=== PATIENT | female | born 1965 | race Caucasian/White ===

== ENCOUNTER 2016-08-02 16:20 | Emergency (ER) | payer BC ==
[~2016-08-02] VITALS: Ht 170.2 cm; Wt 88.4 kg
[~2016-08-02 16:20] MED LIST: ATARAX PO; DOXY20TA5 PO; HYDR10TA4 PO; IRON; MULTIVITAMIN PO; ROPI0.5T PO; VITAMIN C; ZOLP-413 PO
[2016-08-02] MEDS ORDERED: ONDANSETRON ODT 4 MG ONE (17:18)
[2016-08-02] MEDS ORDERED: OXYcodone/APAP 5/325MG TABLET ONE (17:18)
[2016-08-02] MEDS ORDERED: IBUPROFEN 200 MG TABLET ONE (17:18)
[2016-08-02] MEDS ORDERED: OXYcodone/APAP 5/325MG TABLET PO ONE (17:30)
[2016-08-02] MEDS ORDERED: IBUPROFEN 200 MG TABLET PO ONE (17:30)
[2016-08-02] MEDS ORDERED: ONDANSETRON ODT 4 MG PO ONE (17:30)
[2016-08-02 18:19] VITALS: BP 85/61
== END 2016-08-02 18:24 | disposition home or self-care (01) ==
LOC: ED 18:17
DX: R07.89 Other chest pain (principal)
CPT/HCPCS: 71101; 99284; Q0162

== ENCOUNTER 2016-09-23 16:38 | Emergency (ER) | payer BC ==
[~2016-09-23] VITALS: Ht 170.2 cm; Wt 85.4 kg
[~2016-09-23 16:38] MED LIST changes: +SPIR50TA2 PO
[2016-09-23 16:46] VITALS: BP 115/69
[2016-09-23] MEDS ORDERED: HYDROcodone/APAP 5/325 TABLET PO ONE (17:00)
[2016-09-23] MEDS ORDERED: IBUPROFEN 200 MG TABLET PO ONE (17:00)
[2016-09-23] MEDS ORDERED: HYDROcodone/APAP 5/325 TABLET ONE (17:12)
[2016-09-23] MEDS ORDERED: IBUPROFEN 200 MG TABLET ONE (17:13)
== END 2016-09-23 18:06 | disposition home or self-care (01) ==
LOC: ED 18:00
DX: S92.514A Nondisplaced fracture of proximal phalanx of right lesser toe(s), initial encounter for closed fracture (principal); S50.11XA Contusion of right forearm, initial encounter; S82.891A Other fracture of right lower leg, initial encounter for closed fracture; K21.9 Gastro-esophageal reflux disease without esophagitis; Z90.49 Acquired absence of other specified parts of digestive tract; W18.30XA Fall on same level, unspecified, initial encounter; Y93.89 Activity, other specified; Y99.8 Other external cause status; Y92.89 Other specified places as the place of occurrence of the external cause
CPT/HCPCS: 99284

== ENCOUNTER 2017-03-23 13:28 | Emergency (ER) | payer BC ==
[~2017-03-23] VITALS: Ht 170.2 cm; Wt 91.7 kg
[2017-03-23 16:03] LABS: HEMATOCRIT 48.3 % (34.6-47.8); HEMOGLOBIN 16.4 g/dL (11.7-16.4); WHITE BLOOD COUNT 6.6 x10^3/uL (3.4-10)
[2017-03-23 16:12] LABS: ASPARTATE AMINO TRANSFERASE 41 U/L (15-37); BLOOD UREA NITROGEN 11 mg/dL (7-18)
[2017-03-23] MEDS ORDERED: HYDROmorphone 1 MG/ML, 1ML ONE (17:15)
[2017-03-23] MEDS ORDERED: ONDANSETRON 2MG/ML, 2ML ONE (17:15)
[2017-03-23] MEDS ORDERED: HYDROmorphone 1 MG/ML, 1ML IVPush PRN (17:30)
[2017-03-23] MEDS ORDERED: ONDANSETRON 2MG/ML, 2ML IVPush ONE (17:30)
[2017-03-23 18:53] VITALS: BP 119/78
== END 2017-03-23 18:56 | disposition home or self-care (01) ==
LOC: ED 18:55
DX: H57.11 Ocular pain, right eye (principal); R51 Headache; H53.149 Visual discomfort, unspecified; K21.9 Gastro-esophageal reflux disease without esophagitis; Z90.49 Acquired absence of other specified parts of digestive tract
CPT/HCPCS: 36415; 70450; 80053; 85025; 85610; 85730; 93005; 96374; 96375; 99285; J1170; J2405

== ENCOUNTER 2017-10-31 06:23 | Emergency (ER) | payer BC ==
[~2017-10-31] VITALS: Ht 170.2 cm; Wt 90.0 kg
[2017-10-31] MEDS ORDERED: SODIUM CHLORIDE 0.9% 1,000ML IVBOLUS ONE (07:00)
[2017-10-31] MEDS ORDERED: SODIUM CHLORIDE FLUSH 10ML SYR IVF ONE (07:00)
[2017-10-31] MEDS ORDERED: ONDANSETRON 2MG/ML, 2ML IVPush ONE (07:00)
[2017-10-31] MEDS ORDERED: ONDANSETRON 2MG/ML, 2ML ONE (07:22)
[2017-10-31] MEDS ORDERED: MORPHINE SULFATE 4 MG/ML, 1ML ONE ×2 (07:23→08:28)
[2017-10-31 07:30] LABS: MEAN CORPUSCULAR HEMOGLOBIN 30.5 pg (27.0-34.8); MEAN CORPUSCULAR HGB CONC 34.3 g/dL (32.4-35.8); MEAN CORPUSCULAR VOLUME 89.1 fL (80-100); MEAN PLATELET VOLUME 7.8 fL (7.4-10.4); PLATELET COUNT 416 x10^3/uL (130-400); RED BLOOD COUNT 5.26 x10^6/uL (3.82-5.3); RED CELL DISTRIBUTION WIDTH 13.9 % (9.6-15.2)
[2017-10-31] MEDS: MORPHINE SULFATE 4 MG/ML, 1ML IVPush PRN ×2 (07:30→08:33)
[2017-10-31] MEDS ORDERED: DIPHENHYDRAMINE 50 MG/ML, 1ML ONE ×2 (07:38→09:16)
[2017-10-31 07:39] LABS: ALANINE AMINOTRANSFERASE 58 U/L (12-78); ANION GAP 11 mmol/L (5-15); CALCIUM 9.3 mg/dL (8.5-10.1); CHLORIDE 94 mmol/L (98-107); CREATININE 1.31 mg/dL (0.55-1.02)
[2017-10-31 07:41] LABS: ALKALINE PHOSPHATASE 153 U/L (45-117); BILIRUBIN,TOTAL 1.1 mg/dL (0.2-1.0); TOTAL PROTEIN 8.2 g/dL (6.4-8.2)
[2017-10-31 07:55] LABS: INTERNATIONAL NORMALIZED RATIO 0.96 (0.93-1.1)
[2017-10-31] MEDS ORDERED: DIPHENHYDRAMINE 50 MG/ML, 1ML IVPush ONE ×2 (08:00→09:30)
[2017-10-31 08:01] LABS: MD YES
[2017-10-31 08:03] LABS: BAND#(MANUAL) 0.15 x10^3/uL; BANDS%(MANUAL) 2 % (0-7); EOS#(MANUAL) 0.15 x10^3/uL (0.0-0.4); EOS% (MANUAL) 2 % (1-7); LYMPHS% (MANUAL) 25 % (22-44); MONOS#(MANUAL) 0.61 x10^3/uL (0.3-2.7); MONOS% (MANUAL) 8 % (2-9); SEG#(MANUAL) 4.79 x10^3/uL (1.8-6.8); SEGS% (MANUAL) 63 % (42-75)
[2017-10-31 08:04] LABS: <PLATELET ESTIMATE> INCREASED; <PLT MORPHOLOGY> NORMAL PLT MORPH; <RBC MORPHOLOGY> NORMAL
[2017-10-31 08:19] LABS: CLOSTRIDIUM DIFFICILE ANTIGEN NEGATIVE; CLOSTRIDIUM DIFFICILE TOXIN NEGATIVE (Negative)
[2017-10-31] MEDS ORDERED: METOCLOPRAMIDE 5 MG/ML, 2ML ONE (09:16)
[2017-10-31 09:22] VITALS: BP 103/56
[2017-10-31] MEDS ORDERED: METOCLOPRAMIDE 5 MG/ML, 2ML IVPush ONE (09:30)
[2017-10-31] MEDS ORDERED: OMNIPAQUE 350 MG/ML, 100ML BOTTLE ONE (10:22)
== END 2017-10-31 11:08 | disposition home or self-care (01) ==
LOC: ED 08:56
DX: R10.84 Generalized abdominal pain (principal); K21.9 Gastro-esophageal reflux disease without esophagitis; E87.6 Hypokalemia; Z90.49 Acquired absence of other specified parts of digestive tract
CPT/HCPCS: 36415; 74022; 74177; 80053; 83690; 85025; 85610; 85730; 87324; 93005; 96361; 96374; 96375; 96376; 99285; J1200; J2405; J2765; J7030; Q9967

== ENCOUNTER 2018-01-23 18:48 | Emergency (ER) | payer BC ==
[~2018-01-23] VITALS: Ht 170.2 cm; Wt 92.1 kg
[~2018-01-23 18:48] MED LIST changes: -SPIR50TA2 PO; +SPIR50TA4 PO
[2018-01-23 19:34] LABS: BASOPHILS # (AUTO) 0.04 x10^3/uL (0-0.1); BASOPHILS % (AUTO) 1 % (0-1); EOSINOPHILS # (AUTO) 0.15 x10^3/uL (0-0.4); EOSINOPHILS % (AUTO) 2 % (1-7); LYMPHOCYTES # (AUTO) 2.02 x10^3/uL (1-3.4); LYMPHOCYTES % (AUTO) 27 % (22-44); MD NO; MEAN CORPUSCULAR HEMOGLOBIN 31.6 pg (27.0-34.8); MEAN CORPUSCULAR HGB CONC 34.4 g/dL (32.4-35.8); MEAN CORPUSCULAR VOLUME 91.9 fL (80-100); MEAN PLATELET VOLUME 7.3 fL (7.4-10.4); MONOCYTES # (AUTO) 0.28 x10^3/uL (0.2-0.8); MONOCYTES % (AUTO) 4 % (2-9); NEUTROPHILS # (AUTO) 4.97 x10^3/uL (1.8-6.8); NEUTROPHILS % (AUTO) 67 % (42-75); PLATELET COUNT 368 x10^3/uL (130-400); RED BLOOD COUNT 4.77 x10^6/uL (3.82-5.3); RED CELL DISTRIBUTION WIDTH 13.3 % (9.6-15.2)
[2018-01-23 19:42] LABS: ALANINE AMINOTRANSFERASE 57 U/L (12-78); ALBUMIN 3.9 g/dL (3.4-5.0); ANION GAP 11 mmol/L (5-15); CALCIUM 9.2 mg/dL (8.5-10.1); CHLORIDE 102 mmol/L (98-107); CREATININE 1.02 mg/dL (0.55-1.02)
[2018-01-23 19:44] LABS: ALKALINE PHOSPHATASE 175 U/L (45-117); BILIRUBIN,TOTAL 1.2 mg/dL (0.2-1.0); TOTAL PROTEIN 8.3 g/dL (6.4-8.2)
[2018-01-23 19:45] LABS: CULTURE INDICATED? YES; MICROSCOPIC INDICATED
[2018-01-23] MEDS ORDERED: METOCLOPRAMIDE 5 MG/ML, 2ML IVPush ONE (20:00)
[2018-01-23] MEDS ORDERED: POTASSIUM CHLORIDE 20 MEQ in SODIUM CHLORIDE 0.9% 250 ML IV ONE (20:00)
[2018-01-23] MEDS ORDERED: KETOROLAC 30 MG/1 ML IVPush ONE (20:00)
[2018-01-23] MEDS ORDERED: KETOROLAC 30 MG/1 ML ONE (20:06)
[2018-01-23] MEDS ORDERED: METOCLOPRAMIDE 5 MG/ML, 2ML ONE (20:06)
[2018-01-23] MEDS ORDERED: MORPHINE SULFATE 4 MG/ML, 1ML ONE (22:10)
[2018-01-23] MEDS ORDERED: DIPHENHYDRAMINE 50 MG/ML, 1ML ONE (22:16)
[2018-01-23] MEDS ORDERED: DIPHENHYDRAMINE 50 MG/ML, 1ML IVPush ONE (22:30)
[2018-01-23] MEDS ORDERED: MORPHINE SULFATE 4 MG/ML, 1ML IVPush ONE (22:30)
[2018-01-23 23:16] VITALS: BP 121/71
== END 2018-01-23 23:19 | disposition home or self-care (01) ==
LOC: ED 19:55
DX: N30.00 Acute cystitis without hematuria (principal); E87.6 Hypokalemia; G44.219 Episodic tension-type headache, not intractable; K21.9 Gastro-esophageal reflux disease without esophagitis; Z90.89 Acquired absence of other organs; Z90.49 Acquired absence of other specified parts of digestive tract; Z88.2 Allergy status to sulfonamides; Z91.041 Radiographic dye allergy status; Z93.2 Ileostomy status
CPT/HCPCS: 36415; 80053; 81001; 83690; 85025; 87086; 96365; 96375; 99284; J1200; J1885; J2765; J3480; J7050

== ENCOUNTER 2018-07-23 19:33 | Emergency (ER) | payer BC, MEDICAID ==
[~2018-07-23] VITALS: Ht 170.2 cm; Wt 96.0 kg
[2018-07-23] MEDS ORDERED: HYDROcodone/APAP 5/325 TABLET ONE (20:19)
[2018-07-23] MEDS ORDERED: PROMETHAZINE 25 MG/ML, 1ML ONE (20:19)
[2018-07-23] MEDS ORDERED: IBUPROFEN 600 MG TABLET ONE (20:19)
[2018-07-23] MEDS ORDERED: HYDROcodone/APAP 5/325 TABLET PO ONE (20:30)
[2018-07-23] MEDS ORDERED: IBUPROFEN 600 MG TABLET PO ONE (20:30)
[2018-07-23] MEDS ORDERED: PROMETHAZINE 25 MG/ML, 1ML IM ONE (20:30)
[2018-07-23 20:32] LABS: BASOPHILS # (AUTO) 0.05 x10^3/uL (0-0.1); BASOPHILS % (AUTO) 1 % (0-1); EOSINOPHILS # (AUTO) 0.15 x10^3/uL (0-0.4); EOSINOPHILS % (AUTO) 2 % (1-7); LYMPHOCYTES % (AUTO) 26 % (22-44); MD NO; MEAN CORPUSCULAR HEMOGLOBIN 32.5 pg (27.0-34.8); MEAN CORPUSCULAR HGB CONC 34.3 g/dL (32.4-35.8); MEAN CORPUSCULAR VOLUME 94.7 fL (80-100); MEAN PLATELET VOLUME 7.4 fL (7.4-10.4); MONOCYTES # (AUTO) 0.31 x10^3/uL (0.2-0.8); MONOCYTES % (AUTO) 5 % (2-9); NEUTROPHILS # (AUTO) 4.07 x10^3/uL (1.8-6.8); NEUTROPHILS % (AUTO) 66 % (42-75); PLATELET COUNT 265 x10^3/uL (130-400); RED BLOOD COUNT 4.48 x10^6/uL (3.82-5.3); RED CELL DISTRIBUTION WIDTH 14.3 % (9.6-15.2)
[2018-07-23 20:42] LABS: ALANINE AMINOTRANSFERASE 56 U/L (12-78); ALBUMIN 3.5 g/dL (3.4-5.0); ANION GAP 5 mmol/L (5-15); CALCIUM 8.8 mg/dL (8.5-10.1); CHLORIDE 108 mmol/L (98-107); CREATININE 1.09 mg/dL (0.55-1.02); T4 (THYROXINE) 7.9 mcg/dL (4.8-13.9)
[2018-07-23 20:47] LABS: ALKALINE PHOSPHATASE 172 U/L (45-117); BILIRUBIN,TOTAL 0.8 mg/dL (0.2-1.0); TOTAL PROTEIN 7.2 g/dL (6.4-8.2); TROPONIN I < 0.015 ng/mL (0.000-0.045)
[2018-07-23 20:56] LABS: CULTURE INDICATED? YES; MICROSCOPIC INDICATED
--- NOTE | 2018-07-23 21:07 | NUR ---
THIS IS A 53 YO FEMALE WHO PRESENTS TO THE ER C/O RLQ ABD PAIN AND "MORE LIQUIDY THAN NORMAL" OUTPUT FROM HER OSTOMY BAG. PT ALSO REPORTS MUSCLES CRAMPS AND PAINFUL URINATION. URINE CLOUDY AND YELLOW. SAMPLE OBTAINED AND SENT TO LAB. PT MEDICATED ORDERED FOR PAIN/NAUSEA. FAMILY AT BEDSIDE. PT AND FAMILY AWARE WE ARE WAITING FOR LAB/IMAGING RESULTS. PT DENIES OTHER NEEDS AT THIS TIME. CALL LIGHT WITHIN REACH. WILL CONT TO MONITOR PT.
[2018-07-23 21:35] VITALS: BP 125/76
== END 2018-07-23 21:37 | disposition home or self-care (01) ==
LOC: ED 21:34
DX: N30.00 Acute cystitis without hematuria (principal); M79.18 Myalgia, other site; K21.9 Gastro-esophageal reflux disease without esophagitis; Z87.01 Personal history of pneumonia (recurrent); Z90.49 Acquired absence of other specified parts of digestive tract; Z90.89 Acquired absence of other organs
CPT/HCPCS: 36415; 74022; 80053; 81001; 83690; 83735; 84436; 84443; 84484; 85025; 87086; 93005; 96372; 99284; J2550

== ENCOUNTER 2018-07-31 10:22 | Day surgery (SDC) | payer MEDICAID ==
[2018-07-28 12:32] LABS: ALANINE AMINOTRANSFERASE 85 U/L (12-78); ALBUMIN 4.2 g/dL (3.4-5.0); ANION GAP 8 mmol/L (5-15); CALCIUM 9.4 mg/dL (8.5-10.1); CHLORIDE 103 mmol/L (98-107); CREATININE 1.25 mg/dL (0.55-1.02)
[2018-07-28 12:34] LABS: ALKALINE PHOSPHATASE 185 U/L (45-117); BILIRUBIN,TOTAL 1.4 mg/dL (0.2-1.0); TOTAL PROTEIN 8.2 g/dL (6.4-8.2)
[2018-07-28 12:43] LABS: BASOPHILS # (AUTO) 0.02 x10^3/uL (0-0.1); BASOPHILS % (AUTO) 0 % (0-1); EOSINOPHILS # (AUTO) 0.17 x10^3/uL (0-0.4); EOSINOPHILS % (AUTO) 2 % (1-7); LYMPHOCYTES # (AUTO) 2.08 x10^3/uL (1-3.4); LYMPHOCYTES % (AUTO) 29 % (22-44); MD NO; MEAN CORPUSCULAR HEMOGLOBIN 32.5 pg (27.0-34.8); MEAN CORPUSCULAR HGB CONC 34.3 g/dL (32.4-35.8); MEAN CORPUSCULAR VOLUME 94.7 fL (80-100); MEAN PLATELET VOLUME 7.7 fL (7.4-10.4); MONOCYTES # (AUTO) 0.39 x10^3/uL (0.2-0.8); MONOCYTES % (AUTO) 5 % (2-9); NEUTROPHILS # (AUTO) 4.64 x10^3/uL (1.8-6.8); NEUTROPHILS % (AUTO) 64 % (42-75); PLATELET COUNT 344 x10^3/uL (130-400); RED BLOOD COUNT 4.96 x10^6/uL (3.82-5.3)
[2018-07-28 12:44] LABS: INTERNATIONAL NORMALIZED RATIO 0.93 (0.93-1.1); PROTHROMBIN TIME 9.8 Seconds (9.6-11.5)
[~2018-07-31] VITALS: Ht 170.2 cm; Wt 94.6 kg
[2018-07-31] MEDS ORDERED: LACTATED RINGERS 1,000 ML IV SCH (10:50)
[2018-07-31 10:55] VITALS: BP 99/70
[2018-07-31] MEDS ORDERED: MIDAZOLAM 1 MG/ML, 2ML ONE ×2 (12:52→13:02)
[2018-07-31] MEDS ORDERED: FENTANYL PF 100 MCG/2ML ONE ×2 (13:23→13:29)
[2018-07-31] MEDS ORDERED: DEXAMETHASONE 4 MG/ML, 1ML ONE (13:23)
[2018-07-31] MEDS ORDERED: ONDANSETRON 2MG/ML, 2ML ONE (13:23)
[2018-07-31] MEDS ORDERED: OXYcodone 5 MG/5 ML ORAL.SOL UDC ONE (13:48)
[2018-07-31] MEDS ORDERED: HYDROmorphone 2 MG/ML, 1ML ONE (13:48)
[2018-07-31] MEDS ORDERED: ACETAMINOPHEN 650 MG/20.3 ML UDC ONE (13:48)
[2018-07-31] MEDS: HYDROmorphone 2 MG/ML, 1ML IVPush PRN ×4 (13:53→14:16)
[2018-07-31] MEDS ORDERED: KETOROLAC 30 MG/1 ML IM PRN ×2 (14:00)
[2018-07-31] MEDS ORDERED: HYDROcodone/APAP 7.5-325MG/15ML UDC PO PRN (14:00)
[2018-07-31] MEDS ORDERED: FENTANYL PF 100 MCG/2ML IV PRN (14:00)
[2018-07-31] MEDS ORDERED: MORPHINE SULFATE 4 MG/ML, 1ML IVPush PRN (14:00)
[2018-07-31] MEDS ORDERED: ACETAMINOPHEN 325 MG TABLET PO PRN (14:00)
[2018-07-31] MEDS ORDERED: OXYcodone 5 MG/5 ML ORAL.SOL UDC PO PRN (14:00)
[2018-07-31] MEDS ORDERED: KETOROLAC 30 MG/1 ML IV PRN ×2 (14:00)
[2018-07-31] MEDS ORDERED: MEPERIDINE/PF 25MG/0.5ML IVPush PRN (14:00)
== END 2018-07-31 17:00 | disposition home or self-care (01) ==
LOC: OUT 10:22
PROVIDERS: ATTEND Specialist
DX: N72 Inflammatory disease of cervix uteri (principal); D64.9 Anemia, unspecified; Z90.49 Acquired absence of other specified parts of digestive tract; Z87.440 Personal history of urinary (tract) infections; Z98.890 Other specified postprocedural states; Z88.8 Allergy status to other drugs, medicaments and biological substances; Z79.01 Long term (current) use of anticoagulants
CPT/HCPCS: 36415; 58120; 80053; 85025; 85610; 85730; 88305; J1100; J1170; J1885; J2250; J2405; J3010; J7120

== ENCOUNTER → 2018-09-26 | Outpatient (CLI) | payer MEDICAID | END | disposition home or self-care (01) | LOC: WOUND 10:51 | PROVIDERS: ATTEND Internal Medicine Cardiovascular Disease | DX: Z93.3 Colostomy status (principal); K21.9 Gastro-esophageal reflux disease without esophagitis; Z79.01 Long term (current) use of anticoagulants; Z90.49 Acquired absence of other specified parts of digestive tract; Z88.8 Allergy status to other drugs, medicaments and biological substances | CPT/HCPCS: 99203 ==

== ENCOUNTER → 2018-10-02 | Outpatient (CLI) | payer MEDICAID | END | disposition home or self-care (01) | LOC: WOUND 11:17 | PROVIDERS: ATTEND Internal Medicine Cardiovascular Disease | DX: Z93.2 Ileostomy status (principal); K21.9 Gastro-esophageal reflux disease without esophagitis; Z79.01 Long term (current) use of anticoagulants; Z90.49 Acquired absence of other specified parts of digestive tract; Z88.8 Allergy status to other drugs, medicaments and biological substances | CPT/HCPCS: 99212 ==

== ENCOUNTER → 2018-10-25 | Outpatient (CLI) | payer MEDICAID | END | disposition home or self-care (01) | LOC: WOUND 08:05 | PROVIDERS: ATTEND Internal Medicine | DX: Z93.2 Ileostomy status (principal); K21.9 Gastro-esophageal reflux disease without esophagitis; Z79.01 Long term (current) use of anticoagulants; Z90.49 Acquired absence of other specified parts of digestive tract; Z88.8 Allergy status to other drugs, medicaments and biological substances | CPT/HCPCS: 99212 ==

== ENCOUNTER 2018-11-10 13:50 | Outpatient (CLI) | payer MEDICAID | END 2018-11-10 23:59 | disposition home or self-care (01) | LOC: WOUND 13:50 | PROVIDERS: ATTEND Family Medicine | DX: Z93.2 Ileostomy status (principal); Z79.01 Long term (current) use of anticoagulants; Z90.49 Acquired absence of other specified parts of digestive tract; Z88.8 Allergy status to other drugs, medicaments and biological substances | CPT/HCPCS: 99212 ==

== ENCOUNTER 2018-11-10 19:32 | Inpatient (IN) | payer MEDICAID ==
[~2018-11-10] VITALS: Ht 170.2 cm; Wt 105.6 kg
[2018-11-15 08:20] VITALS: BP 104/70
== END 2018-11-15 09:40 | disposition home or self-care (01) | DRG 392 ==
LOC: ED 21:53 → EDIP 22:10 → 3NW 23:22 → DCLOUNGE 11-15 09:38
PROVIDERS: ADMIT Internal Medicine; ATTEND Internal Medicine
DX: R10.9 Unspecified abdominal pain (principal); E66.9 Obesity, unspecified; Z68.36 Body mass index [BMI] 36.0-36.9, adult; Z91.048 Other nonmedicinal substance allergy status; E86.0 Dehydration; E87.6 Hypokalemia; Z82.49 Family history of ischemic heart disease and other diseases of the circulatory system; Z93.2 Ileostomy status; Z82.3 Family history of stroke; K21.9 Gastro-esophageal reflux disease without esophagitis; Z88.3 Allergy status to other anti-infective agents; K66.0 Peritoneal adhesions (postprocedural) (postinfection); Z88.2 Allergy status to sulfonamides; Z82.5 Family history of asthma and other chronic lower respiratory diseases
CPT/HCPCS: 36415; 74018; 74177; 74250; 80053; 81003; 85025; 96374; 96375; 99285; G0378; J1170; J1644; J2405; J3480; Q9967; J1200; J2270; J7030

== ENCOUNTER 2018-11-17 10:39 | Outpatient (CLI) | payer MEDICAID ==
[~2018-11-17 10:39] MED LIST changes: +ROPI2TAB4 PO
[2018-11-21] MEDS ORDERED: OMEP-110 PO (09:40)
[2018-11-21] MEDS ORDERED: DIPH1TAB PO (09:40)
[2018-11-21] MEDS ORDERED: ACID1TAB7 PO ×2 (09:40)
[2018-11-21] MEDS ORDERED: ACET325T26 PO (09:40)
[2018-11-21] MEDS ORDERED: DIPH25CA61 PO (09:40)
[2018-11-21] MEDS ORDERED: LOPE2CAP PO (11:30)
[2018-11-21] MEDS ORDERED: [UNRECOGNIZED DRUG - CODE] TP (11:47)
[2018-12-24] MEDS ORDERED: LEVO750T26 PO ×2 (14:26)
[2019-02-12] MEDS ORDERED: ACID1TAB7 PO (11:18)
[2019-02-12] MEDS ORDERED: FLUC200T PO (11:18)
[2019-02-12] MEDS ORDERED: CIPR750T PO (11:18)
== END 2018-11-17 23:59 | disposition home or self-care (01) ==
LOC: WOUND 10:39
PROVIDERS: ATTEND Family Medicine
DX: Z93.2 Ileostomy status (principal); G89.4 Chronic pain syndrome; E66.9 Obesity, unspecified; K21.9 Gastro-esophageal reflux disease without esophagitis; Z88.2 Allergy status to sulfonamides; Z68.36 Body mass index [BMI] 36.0-36.9, adult; Z79.01 Long term (current) use of anticoagulants; Z90.49 Acquired absence of other specified parts of digestive tract; Z88.8 Allergy status to other drugs, medicaments and biological substances; Z88.3 Allergy status to other anti-infective agents
CPT/HCPCS: 99213

== ENCOUNTER 2018-11-19 13:44 | Observation (INO) | payer MEDICAID ==
[~2018-11-19] VITALS: Ht 170.2 cm; Wt 105.2 kg
[2018-11-21 08:30] VITALS: BP 100/54
== END 2018-11-21 13:22 | disposition home or self-care (01) ==
LOC: ED 14:35 → EDIP 16:33 → INTOOBSV 16:33 → 4NOR 17:35 → DCLOUNGE 11-21 13:12
PROVIDERS: ADMIT Internal Medicine; ATTEND Internal Medicine
DX: R10.30 Lower abdominal pain, unspecified (principal); K94.12 Enterostomy infection; K63.3 Ulcer of intestine; I10 Essential (primary) hypertension; K94.19 Other complications of enterostomy; K66.0 Peritoneal adhesions (postprocedural) (postinfection); E66.9 Obesity, unspecified; E87.6 Hypokalemia; F41.9 Anxiety disorder, unspecified; G47.00 Insomnia, unspecified; I95.9 Hypotension, unspecified; Z68.36 Body mass index [BMI] 36.0-36.9, adult; Z90.49 Acquired absence of other specified parts of digestive tract; Z88.2 Allergy status to sulfonamides; Z91.041 Radiographic dye allergy status; Z88.8 Allergy status to other drugs, medicaments and biological substances; Z79.899 Other long term (current) drug therapy; Z88.1 Allergy status to other antibiotic agents
CPT/HCPCS: 36415; 74022; 80048; 80053; 85025; 85610; 96361; 96372; 96374; 96375; 96376; 99285; G0378; J1644; J1885; J2270; J2405; J7030; Q0163; Q0177

== ENCOUNTER 2018-11-24 10:20 | Outpatient (CLI) | payer MEDICAID | END 2018-11-24 23:59 | disposition home or self-care (01) | LOC: WOUND 10:20 | PROVIDERS: ATTEND Family Medicine | DX: Z93.2 Ileostomy status (principal); G89.4 Chronic pain syndrome; E66.9 Obesity, unspecified; K21.9 Gastro-esophageal reflux disease without esophagitis; Z88.2 Allergy status to sulfonamides; Z68.36 Body mass index [BMI] 36.0-36.9, adult; Z79.1 Long term (current) use of non-steroidal anti-inflammatories (NSAID); Z90.49 Acquired absence of other specified parts of digestive tract; Z88.8 Allergy status to other drugs, medicaments and biological substances; Z88.3 Allergy status to other anti-infective agents | CPT/HCPCS: 99213 ==

== ENCOUNTER 2018-11-29 10:08 | Outpatient (CLI) | payer MEDICAID | END 2018-11-29 23:59 | disposition home or self-care (01) | LOC: WOUND 10:08 | PROVIDERS: ATTEND Internal Medicine | DX: Z93.2 Ileostomy status (principal); G89.4 Chronic pain syndrome; E66.9 Obesity, unspecified; K21.9 Gastro-esophageal reflux disease without esophagitis; Z88.2 Allergy status to sulfonamides; Z68.36 Body mass index [BMI] 36.0-36.9, adult; Z79.1 Long term (current) use of non-steroidal anti-inflammatories (NSAID); Z90.49 Acquired absence of other specified parts of digestive tract; Z88.8 Allergy status to other drugs, medicaments and biological substances; Z88.3 Allergy status to other anti-infective agents | CPT/HCPCS: 99213 ==

== ENCOUNTER 2018-12-06 13:00 | Outpatient (CLI) | payer MEDICAID | END 2018-12-06 23:59 | disposition home or self-care (01) | LOC: WOUND 13:00 | PROVIDERS: ATTEND Internal Medicine | DX: Z93.2 Ileostomy status (principal); G89.4 Chronic pain syndrome; E66.9 Obesity, unspecified; K21.9 Gastro-esophageal reflux disease without esophagitis; Z88.2 Allergy status to sulfonamides; Z68.36 Body mass index [BMI] 36.0-36.9, adult; Z79.1 Long term (current) use of non-steroidal anti-inflammatories (NSAID); Z90.49 Acquired absence of other specified parts of digestive tract; Z88.8 Allergy status to other drugs, medicaments and biological substances; Z88.3 Allergy status to other anti-infective agents | CPT/HCPCS: 99213 ==

== ENCOUNTER 2018-12-21 20:25 | Emergency (ER) | payer MEDICAID ==
[~2018-12-21] VITALS: Ht 170.2 cm; Wt 102.1 kg
[~2018-12-21 20:25] MED LIST changes: +ACET325T26 PO; +ACID1TAB7 PO; +DIPH1TAB PO; +DIPH25CA61 PO; +LOPE2CAP PO; +OMEP-110 PO; +[UNRECOGNIZED DRUG - CODE] TP
[2018-12-21] MEDS ORDERED: PHENAZOPYRIDINE 200 MG TABLET PO ONE (21:30)
[2018-12-21] MEDS ORDERED: HYDROcodone/APAP 5/325 TABLET PO ONE (21:30)
[2018-12-21] MEDS ORDERED: HYDROcodone/APAP 5/325 TABLET ONE (21:33)
[2018-12-21] MEDS ORDERED: PHENAZOPYRIDINE 200 MG TABLET ONE (21:33)
[2018-12-21 22:01] LABS: CULTURE INDICATED? YES; MICROSCOPIC INDICATED
[2018-12-21 22:12] LABS: BASOPHILS # (AUTO) 0.05 x10^3/uL (0-0.1); BASOPHILS % (AUTO) 1 % (0-1); EOSINOPHILS # (AUTO) 0.19 x10^3/uL (0-0.4); EOSINOPHILS % (AUTO) 4 % (1-7); LYMPHOCYTES # (AUTO) 1.67 x10^3/uL (1-3.4); LYMPHOCYTES % (AUTO) 31 % (22-44); MD NO; MEAN CORPUSCULAR HEMOGLOBIN 32.9 pg (27.0-34.8); MEAN CORPUSCULAR HGB CONC 33.8 g/dL (32.4-35.8); MEAN CORPUSCULAR VOLUME 97.3 fL (80-100); MEAN PLATELET VOLUME 7.5 fL (7.4-10.4); MONOCYTES # (AUTO) 0.29 x10^3/uL (0.2-0.8); MONOCYTES % (AUTO) 5 % (2-9); NEUTROPHILS # (AUTO) 3.14 x10^3/uL (1.8-6.8); NEUTROPHILS % (AUTO) 59 % (42-75); PLATELET COUNT 252 x10^3/uL (130-400); RED BLOOD COUNT 4.15 x10^6/uL (3.82-5.3); RED CELL DISTRIBUTION WIDTH 14.5 % (9.6-15.2)
[2018-12-21 22:21] LABS: ALANINE AMINOTRANSFERASE 37 U/L (12-78); ALBUMIN 3.3 g/dL (3.4-5.0); ANION GAP 10 mmol/L (5-15); CALCIUM 8.5 mg/dL (8.5-10.1); CHLORIDE 107 mmol/L (98-107); CREATININE 1.04 mg/dL (0.55-1.02)
[2018-12-21 22:23] LABS: ALKALINE PHOSPHATASE 120 U/L (45-117); TOTAL PROTEIN 6.7 g/dL (6.4-8.2)
[2018-12-21] MEDS ORDERED: CIPROFLOXACIN 500 MG TABLET ONE (22:54)
[2018-12-21] MEDS ORDERED: CIPROFLOXACIN 500 MG TABLET PO ONE (23:00)
--- NOTE | 2018-12-21 23:05 | NUR ---
Pt mewdicated and given discharge instructions. pt verbalized understanding and ambulated out of er with a steady gait.
[2018-12-21 23:06] VITALS: BP 131/81
[2018-12-24] MEDS ORDERED: LEVO750T26 PO (14:26)
== END 2018-12-21 23:08 | disposition home or self-care (01) ==
LOC: ED 22:40
DX: N30.00 Acute cystitis without hematuria (principal); K21.9 Gastro-esophageal reflux disease without esophagitis; Z90.49 Acquired absence of other specified parts of digestive tract
CPT/HCPCS: 36415; 80053; 81001; 85025; 87077; 87086; 87186; 99284

== ENCOUNTER 2019-03-08 17:47 | Inpatient (IN) | payer MEDICAID ==
[~2019-03-08] VITALS: Ht 170.2 cm; Wt 103.2 kg
[~2019-03-08 17:47] MED LIST changes: +CIPR750T PO; +FLUC200T PO; +LEVO750T26 PO
[2019-03-08] MEDS ORDERED: SODIUM CHLORIDE FLUSH 10ML SYR IVF ONE (18:30)
[2019-03-08 18:32] LABS: BASOPHILS # (AUTO) 0.02 x10^3/uL (0-0.1); BASOPHILS % (AUTO) 0 % (0-1); EOSINOPHILS # (AUTO) 0.29 x10^3/uL (0-0.4); EOSINOPHILS % (AUTO) 4 % (1-7); LYMPHOCYTES % (AUTO) 31 % (22-44); MD NO; MEAN CORPUSCULAR HEMOGLOBIN 31.6 pg (27.0-34.8); MEAN CORPUSCULAR HGB CONC 33.3 g/dL (32.4-35.8); MEAN PLATELET VOLUME 8.1 fL (7.4-10.4); MONOCYTES # (AUTO) 0.31 x10^3/uL (0.2-0.8); MONOCYTES % (AUTO) 4 % (2-9); NEUTROPHILS # (AUTO) 4.89 x10^3/uL (1.8-6.8); NEUTROPHILS % (AUTO) 61 % (42-75); PLATELET COUNT 375 x10^3/uL (130-400); RED BLOOD COUNT 5.04 x10^6/uL (3.82-5.3); RED CELL DISTRIBUTION WIDTH 13.2 % (9.6-15.2)
[2019-03-08 18:41] LABS: ALBUMIN 3.8 g/dL (3.4-5.0); ANION GAP 7 mmol/L (5-15); CALCIUM 9.4 mg/dL (8.5-10.1); CHLORIDE 108 mmol/L (98-107)
[2019-03-08 18:46] LABS: ALANINE AMINOTRANSFERASE 58 U/L (12-78); ALKALINE PHOSPHATASE 181 U/L (45-117); BILIRUBIN,TOTAL 0.9 mg/dL (0.2-1.0); CREATININE 1.05 mg/dL (0.55-1.02); TOTAL PROTEIN 8.3 g/dL (6.4-8.2)
[2019-03-08] MEDS ORDERED: MORPHINE SULFATE 4 MG/ML, 1ML ONE ×2 (21:27→22:45)
[2019-03-08] MEDS ORDERED: PROMETHAZINE 25 MG/ML, 1ML ONE (21:27)
[2019-03-08] MEDS ORDERED: ONDANSETRON 2MG/ML, 2ML ONE (21:27)
[2019-03-08] MEDS ORDERED: PROMETHAZINE 25 MG/ML, 1ML IM ONE (21:30)
[2019-03-08] MEDS ORDERED: SODIUM CHLORIDE 0.9% 1,000ML IVBOLUS ONE (21:30)
[2019-03-08] MEDS ORDERED: morphine SULFATE 10 MG/ML, 1ML IVPush ONE (21:30)
[2019-03-08] MEDS ORDERED: ONDANSETRON 2MG/ML, 2ML IVPush ONE (21:30)
[2019-03-08 22:18] LABS: CULTURE INDICATED? YES; MICROSCOPIC INDICATED
--- NOTE | 2019-03-08 22:50 | NUR ---
PT C/O PAIN IN ABD, ERP AWARE, ORDER GIVEN. PT MEDICATED FOR PAIN PER EMAR. PT AWARE SHE IS GOING TO BE ADMITTED. AWAITING ORDERS.
[2019-03-08] MEDS ORDERED: MORPHINE SULFATE 4 MG/ML, 1ML IVPush ONE (23:00)
--- NOTE | 2019-03-08 23:56 | NUR ---
REPORT TO DWIGHT MAURER. PT HAS BEEN RESTING IN BED. VSS, SEE CHARTED. WILL CONTINUE TO MONITOR. CALL LIGHT WITHIN REACH.
[2019-03-09] MEDS ORDERED: ACETAMINOPHEN 325 MG TABLET PO PRN
[2019-03-09] MEDS ORDERED: DIPHENHYDRAMINE 25 MG CAPSULE PO PRN
[2019-03-09 00:43] VITALS: BP 125/78
[2019-03-09] MEDS: HEPARIN 5,000 UNITS/ML, 1ML SQ SCH ×3 (01:03→17:10)
[2019-03-09] MEDS: CIPROFLOXACIN/PMX 400MG/200ML 200 ML IV SCH ×2 (01:03→13:33)
[2019-03-09] MEDS: ZOLPIDEM 10MG TABLET PO SCH ×2 (01:04→21:38)
[2019-03-09] MEDS: SODIUM CHLORIDE 0.9% 1,000 ML IV SCH ×3 (01:04→21:50)
[2019-03-09] MEDS: ROPINIROLE 1MG TABLET PO SCH ×2 (01:04→21:49)
[2019-03-09] MEDS: morphine SULFATE 10 MG/ML, 1ML IVPush PRN ×7 (02:46→21:39)
[2019-03-09 02:51] LABS: CLOSTRIDIUM DIFFICILE ANTIGEN NEGATIVE; CLOSTRIDIUM DIFFICILE TOXIN NEGATIVE (Negative)
[2019-03-09 06:27] LABS: BASOPHILS # (AUTO) 0.01 x10^3/uL (0-0.1); BASOPHILS % (AUTO) 0 % (0-1); EOSINOPHILS # (AUTO) 0.29 x10^3/uL (0-0.4); EOSINOPHILS % (AUTO) 5 % (1-7); LYMPHOCYTES # (AUTO) 1.49 x10^3/uL (1-3.4); LYMPHOCYTES % (AUTO) 27 % (22-44); MD NO; MEAN CORPUSCULAR HEMOGLOBIN 31.8 pg (27.0-34.8); MEAN CORPUSCULAR HGB CONC 33.4 g/dL (32.4-35.8); MEAN CORPUSCULAR VOLUME 95.3 fL (80-100); MEAN PLATELET VOLUME 8.5 fL (7.4-10.4); MONOCYTES # (AUTO) 0.35 x10^3/uL (0.2-0.8); MONOCYTES % (AUTO) 6 % (2-9); NEUTROPHILS # (AUTO) 3.42 x10^3/uL (1.8-6.8); NEUTROPHILS % (AUTO) 62 % (42-75); PLATELET COUNT 244 x10^3/uL (130-400); RED BLOOD COUNT 4.12 x10^6/uL (3.82-5.3)
[2019-03-09 06:31] LABS: CHLORIDE 112 mmol/L (98-107)
[2019-03-09 06:39] LABS: ALANINE AMINOTRANSFERASE 50 U/L (12-78); ALKALINE PHOSPHATASE 131 U/L (45-117); ANION GAP 7 mmol/L (5-15); BILIRUBIN,TOTAL 1.2 mg/dL (0.2-1.0); CALCIUM 8.3 mg/dL (8.5-10.1); CREATININE 0.93 mg/dL (0.55-1.02); TOTAL PROTEIN 6.7 g/dL (6.4-8.2)
[2019-03-09] MEDS ORDERED: DIPHENHYDRAMINE 50 MG/ML, 1ML IVPush ONE (07:30)
[2019-03-09 08:08] VITALS: BP 123/86
[2019-03-09] MEDS ORDERED: MAGNESIUM SULFATE PMX 4GM/100M 100 ML IV ONE (09:00)
[2019-03-09] MEDS ORDERED: POTASSIUM PHOSPHATE 44 MEQ in SODIUM CHLORIDE 0.9% 500 ML IV ONE (09:00)
[2019-03-09] MEDS: ONDANSETRON 2MG/ML, 2ML IVPush PRN (09:25)
[2019-03-09 15:07] VITALS: BP 107/61
[2019-03-09 18:42] VITALS: BP 112/75
[2019-03-09] MEDS: DIPHENHYDRAMINE 50 MG/ML, 1ML IVPush PRN (19:47)
[2019-03-09] MEDS ORDERED: ZOLPIDEM 10MG TABLET PO SCH (21:00)
[2019-03-09] MEDS ORDERED: ROPINIROLE 1MG TABLET PO SCH (21:00)
[2019-03-09] MEDS ORDERED: ROPINIROLE 0.5MG TABLET ONE (21:33)
[2019-03-10 00:30] VITALS: BP 107/73
[2019-03-10] MEDS: HEPARIN 5,000 UNITS/ML, 1ML SQ SCH ×3 (01:17→17:41)
[2019-03-10] MEDS: CIPROFLOXACIN/PMX 400MG/200ML 200 ML IV SCH ×2 (01:17→14:59)
[2019-03-10] MEDS: morphine SULFATE 10 MG/ML, 1ML IVPush PRN ×6 (01:28→21:23)
[2019-03-10] MEDS: DIPHENHYDRAMINE 50 MG/ML, 1ML IVPush PRN ×4 (02:41→21:22)
[2019-03-10 06:00] LABS: ALBUMIN 2.7 g/dL (3.4-5.0); CHLORIDE 111 mmol/L (98-107)
[2019-03-10 06:02] LABS: BASOPHILS # (AUTO) 0.01 x10^3/uL (0-0.1); BASOPHILS % (AUTO) 0 % (0-1); EOSINOPHILS # (AUTO) 0.35 x10^3/uL (0-0.4); EOSINOPHILS % (AUTO) 8 % (1-7); LYMPHOCYTES # (AUTO) 1.41 x10^3/uL (1-3.4); LYMPHOCYTES % (AUTO) 33 % (22-44); MD NO; MEAN CORPUSCULAR HEMOGLOBIN 31.5 pg (27.0-34.8); MEAN CORPUSCULAR HGB CONC 33.6 g/dL (32.4-35.8); MEAN CORPUSCULAR VOLUME 93.9 fL (80-100); MEAN PLATELET VOLUME 7.9 fL (7.4-10.4); MONOCYTES # (AUTO) 0.31 x10^3/uL (0.2-0.8); MONOCYTES % (AUTO) 7 % (2-9); NEUTROPHILS # (AUTO) 2.14 x10^3/uL (1.8-6.8); NEUTROPHILS % (AUTO) 51 % (42-75); PLATELET COUNT 204 x10^3/uL (130-400); RED BLOOD COUNT 3.69 x10^6/uL (3.82-5.3); RED CELL DISTRIBUTION WIDTH 13.1 % (9.6-15.2)
[2019-03-10 06:06] LABS: ALANINE AMINOTRANSFERASE 39 U/L (12-78); ALKALINE PHOSPHATASE 111 U/L (45-117); ANION GAP 6 mmol/L (5-15); BILIRUBIN,TOTAL 0.6 mg/dL (0.2-1.0); CREATININE 0.86 mg/dL (0.55-1.02); TOTAL PROTEIN 5.9 g/dL (6.4-8.2)
[2019-03-10 07:17] VITALS: BP 110/71
[2019-03-10] MEDS: SODIUM CHLORIDE 0.9% 1,000 ML IV SCH ×2 (14:26→23:07)
[2019-03-10 14:43] VITALS: BP 100/65
[2019-03-10 19:29] VITALS: BP 93/62
[2019-03-10] MEDS: ROPINIROLE 1MG TABLET PO SCH (23:06)
[2019-03-10] MEDS: ZOLPIDEM 10MG TABLET PO SCH (23:06)
[2019-03-11] MEDS: HEPARIN 5,000 UNITS/ML, 1ML SQ SCH ×2 (01:00→08:28)
[2019-03-11] MEDS: CIPROFLOXACIN/PMX 400MG/200ML 200 ML IV SCH ×2 (01:04→12:46)
[2019-03-11 01:20] VITALS: BP 96/62
[2019-03-11] MEDS: morphine SULFATE 10 MG/ML, 1ML IVPush PRN ×8 (01:44→23:43)
[2019-03-11] MEDS: DIPHENHYDRAMINE 50 MG/ML, 1ML IVPush PRN ×4 (03:21→20:29)
[2019-03-11 05:39] LABS: BASOPHILS # (AUTO) 0.01 x10^3/uL (0-0.1); BASOPHILS % (AUTO) 0 % (0-1); EOSINOPHILS # (AUTO) 0.45 x10^3/uL (0-0.4); EOSINOPHILS % (AUTO) 11 % (1-7); LYMPHOCYTES # (AUTO) 1.47 x10^3/uL (1-3.4); LYMPHOCYTES % (AUTO) 37 % (22-44); MD NO; MEAN CORPUSCULAR HEMOGLOBIN 31.9 pg (27.0-34.8); MEAN CORPUSCULAR HGB CONC 33.7 g/dL (32.4-35.8); MEAN CORPUSCULAR VOLUME 94.8 fL (80-100); MEAN PLATELET VOLUME 8.1 fL (7.4-10.4); MONOCYTES # (AUTO) 0.24 x10^3/uL (0.2-0.8); MONOCYTES % (AUTO) 6 % (2-9); NEUTROPHILS # (AUTO) 1.78 x10^3/uL (1.8-6.8); NEUTROPHILS % (AUTO) 45 % (42-75); PLATELET COUNT 180 x10^3/uL (130-400); RED BLOOD COUNT 3.59 x10^6/uL (3.82-5.3); RED CELL DISTRIBUTION WIDTH 12.8 % (9.6-15.2)
[2019-03-11 05:53] LABS: ALBUMIN 2.5 g/dL (3.4-5.0); ANION GAP 5 mmol/L (5-15); CHLORIDE 114 mmol/L (98-107)
[2019-03-11 05:59] LABS: ALANINE AMINOTRANSFERASE 33 U/L (12-78); ALKALINE PHOSPHATASE 105 U/L (45-117); BILIRUBIN,TOTAL 0.8 mg/dL (0.2-1.0); CREATININE 0.82 mg/dL (0.55-1.02); TOTAL PROTEIN 5.5 g/dL (6.4-8.2)
[2019-03-11 06:59] VITALS: BP 98/65
[2019-03-11] MEDS ORDERED: MAGNESIUM SULFATE PMX 2GM/50ML 50 ML IV ONE (08:00)
[2019-03-11] MEDS: SODIUM CHLORIDE 0.9% 1,000 ML IV SCH (08:29)
[2019-03-11] MEDS: ENOXAPARIN 40 MG/0.4 ML SQ SCH (12:47)
[2019-03-11] MEDS: CHOLESTYRAMINE LIGHT 4GM PACKET PO SCH (14:05)
[2019-03-11 14:33] VITALS: BP 106/67
[2019-03-11] MEDS: LACTOBACILLUS CHEW TABLET PO SCH ×2 (16:19→23:01)
[2019-03-11 20:41] VITALS: BP 105/71
[2019-03-11] MEDS: ZOLPIDEM 10MG TABLET PO SCH (23:01)
[2019-03-11] MEDS: ROPINIROLE 1MG TABLET PO SCH (23:02)
[2019-03-12] MEDS: CIPROFLOXACIN/PMX 400MG/200ML 200 ML IV SCH ×2 (00:54→13:06)
[2019-03-12 01:06] VITALS: BP 106/59
[2019-03-12] MEDS: morphine SULFATE 10 MG/ML, 1ML IVPush PRN ×6 (03:09→20:59)
[2019-03-12] MEDS: DIPHENHYDRAMINE 50 MG/ML, 1ML IVPush PRN ×4 (03:09→22:54)
[2019-03-12 04:44] LABS: BASOPHILS # (AUTO) 0.01 x10^3/uL (0-0.1); BASOPHILS % (AUTO) 0 % (0-1); EOSINOPHILS # (AUTO) 0.41 x10^3/uL (0-0.4); EOSINOPHILS % (AUTO) 10 % (1-7); LYMPHOCYTES # (AUTO) 1.37 x10^3/uL (1-3.4); LYMPHOCYTES % (AUTO) 34 % (22-44); MD NO; MEAN CORPUSCULAR HEMOGLOBIN 31.9 pg (27.0-34.8); MEAN CORPUSCULAR HGB CONC 33.6 g/dL (32.4-35.8); MEAN CORPUSCULAR VOLUME 95.2 fL (80-100); MEAN PLATELET VOLUME 8.1 fL (7.4-10.4); MONOCYTES # (AUTO) 0.23 x10^3/uL (0.2-0.8); MONOCYTES % (AUTO) 6 % (2-9); NEUTROPHILS # (AUTO) 2.06 x10^3/uL (1.8-6.8); NEUTROPHILS % (AUTO) 51 % (42-75); PLATELET COUNT 199 x10^3/uL (130-400); RED BLOOD COUNT 3.56 x10^6/uL (3.82-5.3)
[2019-03-12 04:55] LABS: ALBUMIN 2.6 g/dL (3.4-5.0); ANION GAP 3 mmol/L (5-15); CALCIUM 7.7 mg/dL (8.5-10.1); CHLORIDE 113 mmol/L (98-107)
[2019-03-12 05:00] LABS: ALANINE AMINOTRANSFERASE 32 U/L (12-78); ALKALINE PHOSPHATASE 109 U/L (45-117); BILIRUBIN,TOTAL 0.5 mg/dL (0.2-1.0); CREATININE 0.88 mg/dL (0.55-1.02); TOTAL PROTEIN 5.7 g/dL (6.4-8.2)
[2019-03-12] MEDS: SODIUM CHLORIDE 0.9% 1,000 ML IV SCH ×2 (05:23→14:39)
[2019-03-12 06:53] VITALS: BP 100/65
[2019-03-12] MEDS: CHOLESTYRAMINE LIGHT 4GM PACKET PO SCH (07:05)
[2019-03-12] MEDS: LACTOBACILLUS CHEW TABLET PO SCH ×3 (07:05→21:00)
[2019-03-12 12:33] VITALS: BP 108/71
[2019-03-12] MEDS: ENOXAPARIN 40 MG/0.4 ML SQ SCH (13:06)
[2019-03-12] MEDS: DIPHENOXYLATE/ATROPINE TABLET PO SCH ×2 (17:05→21:00)
[2019-03-12] MEDS: ONDANSETRON 2MG/ML, 2ML IVPush PRN (17:05)
[2019-03-12 18:35] VITALS: BP 96/64
[2019-03-12] MEDS: ROPINIROLE 1MG TABLET PO SCH (21:00)
[2019-03-12] MEDS: ZOLPIDEM 10MG TABLET PO SCH (21:00)
[2019-03-12] MEDS: AMOXICILLIN/CLAV 875-125MG TABLET PO SCH (21:00)
[2019-03-13] MEDS: morphine SULFATE 10 MG/ML, 1ML IVPush PRN ×7 (00:47→21:57)
[2019-03-13 00:54] VITALS: BP 95/60
[2019-03-13] MEDS: SODIUM CHLORIDE 0.9% 1,000 ML IV SCH ×2 (03:15→14:50)
[2019-03-13 05:04] LABS: BASOPHILS # (AUTO) 0.03 x10^3/uL (0-0.1); BASOPHILS % (AUTO) 1 % (0-1); EOSINOPHILS # (AUTO) 0.37 x10^3/uL (0-0.4); EOSINOPHILS % (AUTO) 9 % (1-7); LYMPHOCYTES # (AUTO) 1.31 x10^3/uL (1-3.4); LYMPHOCYTES % (AUTO) 31 % (22-44); MD NO; MEAN CORPUSCULAR HEMOGLOBIN 31.4 pg (27.0-34.8); MEAN CORPUSCULAR HGB CONC 32.9 g/dL (32.4-35.8); MEAN CORPUSCULAR VOLUME 95.6 fL (80-100); MEAN PLATELET VOLUME 7.7 fL (7.4-10.4); MONOCYTES # (AUTO) 0.14 x10^3/uL (0.2-0.8); MONOCYTES % (AUTO) 3 % (2-9); NEUTROPHILS # (AUTO) 2.39 x10^3/uL (1.8-6.8); NEUTROPHILS % (AUTO) 56 % (42-75); PLATELET COUNT 199 x10^3/uL (130-400); RED BLOOD COUNT 3.66 x10^6/uL (3.82-5.3)
[2019-03-13] MEDS: DIPHENHYDRAMINE 50 MG/ML, 1ML IVPush PRN ×3 (05:08→18:12)
[2019-03-13 05:16] LABS: ANION GAP 4 mmol/L (5-15); CHLORIDE 113 mmol/L (98-107)
[2019-03-13 05:20] LABS: CREATININE 0.94 mg/dL (0.55-1.02)
[2019-03-13 06:35] VITALS: BP 91/53
[2019-03-13] MEDS: DIPHENOXYLATE/ATROPINE TABLET PO SCH (08:53)
[2019-03-13] MEDS: AMOXICILLIN/CLAV 875-125MG TABLET PO SCH ×2 (08:53→20:58)
[2019-03-13] MEDS: CHOLESTYRAMINE LIGHT 4GM PACKET PO SCH (08:53)
[2019-03-13] MEDS: LACTOBACILLUS CHEW TABLET PO SCH ×3 (08:58→20:58)
[2019-03-13] MEDS: ONDANSETRON 2MG/ML, 2ML IVPush PRN ×2 (10:41→21:14)
[2019-03-13] MEDS: ENOXAPARIN 40 MG/0.4 ML SQ SCH (11:54)
[2019-03-13 13:05] VITALS: BP 104/71
[2019-03-13 18:58] VITALS: BP 109/70
[2019-03-13 19:00] VITALS: BP 104/67
[2019-03-13] MEDS: ROPINIROLE 1MG TABLET PO SCH (20:58)
[2019-03-13] MEDS: ZOLPIDEM 10MG TABLET PO SCH (20:58)
[2019-03-14] MEDS: DIPHENHYDRAMINE 50 MG/ML, 1ML IVPush PRN ×4 (01:14→23:18)
[2019-03-14] MEDS: morphine SULFATE 10 MG/ML, 1ML IVPush PRN ×7 (01:14→23:17)
[2019-03-14 01:20] VITALS: BP 120/80
[2019-03-14] MEDS: AMOXICILLIN/CLAV 875-125MG TABLET PO SCH ×2 (08:11→21:28)
[2019-03-14] MEDS: SODIUM CHLORIDE 0.9% 1,000 ML IV SCH (08:11)
[2019-03-14] MEDS: LACTOBACILLUS CHEW TABLET PO SCH ×3 (08:11→21:28)
[2019-03-14] MEDS: CHOLESTYRAMINE LIGHT 4GM PACKET PO SCH (08:11)
[2019-03-14 08:25] VITALS: BP 112/77
[2019-03-14 10:25] LABS: MEAN CORPUSCULAR HEMOGLOBIN 31.1 pg (27.0-34.8); MEAN CORPUSCULAR HGB CONC 33.1 g/dL (32.4-35.8); MEAN CORPUSCULAR VOLUME 93.8 fL (80-100); MEAN PLATELET VOLUME 7.4 fL (7.4-10.4); PLATELET COUNT 202 x10^3/uL (130-400); RED BLOOD COUNT 3.84 x10^6/uL (3.82-5.3); RED CELL DISTRIBUTION WIDTH 13.1 % (9.6-15.2)
[2019-03-14 10:39] LABS: ANION GAP 4 mmol/L (5-15); CALCIUM 8.1 mg/dL (8.5-10.1); CHLORIDE 115 mmol/L (98-107); CREATININE 0.91 mg/dL (0.55-1.02)
[2019-03-14 10:41] LABS: BASOPHILS # (AUTO) 0.02 x10^3/uL (0-0.1); BASOPHILS % (AUTO) 1 % (0-1); EOSINOPHILS # (AUTO) 0.36 x10^3/uL (0-0.4); EOSINOPHILS % (AUTO) 11 % (1-7); LYMPHOCYTES # (AUTO) 1.17 x10^3/uL (1-3.4); LYMPHOCYTES % (AUTO) 35 % (22-44); MD SCAN; MONOCYTES # (AUTO) 0.18 x10^3/uL (0.2-0.8); MONOCYTES % (AUTO) 5 % (2-9); NEUTROPHILS # (AUTO) 1.64 x10^3/uL (1.8-6.8); NEUTROPHILS % (AUTO) 49 % (42-75)
[2019-03-14 10:42] LABS: PREALBUMIN 20.9 mg/dL (20.0-40.0)
[2019-03-14] MEDS: ONDANSETRON 2MG/ML, 2ML IVPush SCH ×3 (11:19→23:18)
[2019-03-14] MEDS: ENOXAPARIN 40 MG/0.4 ML SQ SCH (11:19)
[2019-03-14] MEDS ORDERED: SODIUM CHLORIDE 0.9% 1,000 ML IV SCH ×3 (12:30→17:00)
[2019-03-14] MEDS ORDERED: AMINO ACID 10% IV SCH (17:00)
[2019-03-14] MEDS ORDERED: FAT EMUL IV SCH (17:00)
[2019-03-14] MEDS ORDERED: SMOF TPN IV SCH (17:00)
[2019-03-14] MEDS ORDERED: DEXTROSE 70% IV SCH (17:00)
[2019-03-14] MEDS ORDERED: TPN PER PHARMACY MC PRN (17:00)
[2019-03-14] MEDS ORDERED: PVN PER PHARMACY MC SCH (17:00)
[2019-03-14] MEDS ORDERED: DEXTROSE 10% 500 ML IV PRN (17:00)
[2019-03-14] MEDS ORDERED: DEXTROSE 50%, 50ML SYRINGE IVPush PRN (17:00)
[2019-03-14] MEDS ORDERED: [UNRECOGNIZED DRUG - OTHER] IV SCH (17:00)
[2019-03-14 19:46] VITALS: BP 120/82
[2019-03-14] MEDS: INSULIN REGULAR LOW DOSE Q6H X 48HRS SQ-INSULIN SCH (21:00)
[2019-03-14] MEDS: ZOLPIDEM 10MG TABLET PO SCH (21:28)
[2019-03-14] MEDS: ROPINIROLE 1MG TABLET PO SCH (21:29)
[2019-03-15 01:28] VITALS: BP 118/78
[2019-03-15] MEDS: morphine SULFATE 10 MG/ML, 1ML IVPush PRN ×6 (02:46→19:31)
[2019-03-15] MEDS: INSULIN REGULAR LOW DOSE Q6H X 48HRS SQ-INSULIN SCH ×4 (02:52→21:00)
[2019-03-15] MEDS: ONDANSETRON 2MG/ML, 2ML IVPush SCH ×4 (05:03→23:00)
[2019-03-15 06:05] LABS: BASOPHILS # (AUTO) 0.01 x10^3/uL (0-0.1); BASOPHILS % (AUTO) 0 % (0-1); EOSINOPHILS # (AUTO) 0.34 x10^3/uL (0-0.4); EOSINOPHILS % (AUTO) 8 % (1-7); LYMPHOCYTES # (AUTO) 1.02 x10^3/uL (1-3.4); LYMPHOCYTES % (AUTO) 25 % (22-44); MD NO; MEAN CORPUSCULAR HEMOGLOBIN 31.6 pg (27.0-34.8); MEAN CORPUSCULAR HGB CONC 33.9 g/dL (32.4-35.8); MEAN CORPUSCULAR VOLUME 93.4 fL (80-100); MEAN PLATELET VOLUME 7.4 fL (7.4-10.4); MONOCYTES # (AUTO) 0.18 x10^3/uL (0.2-0.8); MONOCYTES % (AUTO) 4 % (2-9); NEUTROPHILS # (AUTO) 2.57 x10^3/uL (1.8-6.8); NEUTROPHILS % (AUTO) 62 % (42-75); PLATELET COUNT 219 x10^3/uL (130-400); RED BLOOD COUNT 3.82 x10^6/uL (3.82-5.3); RED CELL DISTRIBUTION WIDTH 12.8 % (9.6-15.2)
[2019-03-15 06:12] LABS: CHLORIDE 108 mmol/L (98-107)
[2019-03-15 06:23] LABS: ANION GAP 5 mmol/L (5-15); CALCIUM 8.8 mg/dL (8.5-10.1); CREATININE 0.96 mg/dL (0.55-1.02)
[2019-03-15] MEDS: DIPHENHYDRAMINE 50 MG/ML, 1ML IVPush PRN ×3 (06:33→19:30)
[2019-03-15 06:45] VITALS: BP 120/78
[2019-03-15] MEDS: CHOLESTYRAMINE LIGHT 4GM PACKET PO SCH (07:45)
[2019-03-15] MEDS: LACTOBACILLUS CHEW TABLET PO SCH ×3 (07:45→22:45)
[2019-03-15] MEDS: AMOXICILLIN/CLAV 875-125MG TABLET PO SCH ×2 (07:45→22:45)
[2019-03-15 12:41] VITALS: BP 114/69
[2019-03-15] MEDS: ENOXAPARIN 40 MG/0.4 ML SQ SCH (12:53)
[2019-03-15] MEDS ORDERED: SODIUM CHLORIDE 0.9% 1,000 ML IV SCH (14:00)
[2019-03-15] MEDS ORDERED: SMOF TPN IV SCH (17:00)
[2019-03-15] MEDS ORDERED: TPN PER PHARMACY MC SCH (17:00)
[2019-03-15] MEDS ORDERED: DEXTROSE 70% IV SCH (17:00)
[2019-03-15] MEDS ORDERED: AMINO ACID 10% IV SCH (17:00)
[2019-03-15] MEDS ORDERED: FAT EMUL IV SCH (17:00)
[2019-03-15] MEDS ORDERED: [UNRECOGNIZED DRUG - OTHER] IV SCH (17:00)
[2019-03-15] MEDS: FILTER, DISP 1.2 MICRON FOR TPN/PVN IV PRN (18:40)
[2019-03-15 19:40] VITALS: BP 130/89
[2019-03-15] MEDS: ROPINIROLE 1MG TABLET PO SCH (22:45)
[2019-03-15] MEDS: ZOLPIDEM 10MG TABLET PO SCH (22:45)
[2019-03-16] MEDS: ONDANSETRON 2MG/ML, 2ML IVPush PRN (02:00)
[2019-03-16] MEDS: DIPHENHYDRAMINE 50 MG/ML, 1ML IVPush PRN ×4 (02:00→21:05)
[2019-03-16] MEDS: morphine SULFATE 10 MG/ML, 1ML IVPush PRN ×6 (02:00→21:06)
[2019-03-16 02:14] VITALS: BP 119/82
[2019-03-16] MEDS: INSULIN REGULAR LOW DOSE Q6H X 48HRS SQ-INSULIN SCH ×3 (02:45→15:00)
[2019-03-16] MEDS: ONDANSETRON 2MG/ML, 2ML IVPush SCH ×4 (02:47→20:59)
[2019-03-16 05:18] LABS: BASOPHILS # (AUTO) 0.05 x10^3/uL (0-0.1); BASOPHILS % (AUTO) 2 % (0-1); EOSINOPHILS # (AUTO) 0.31 x10^3/uL (0-0.4); EOSINOPHILS % (AUTO) 9 % (1-7); LYMPHOCYTES % (AUTO) 32 % (22-44); MD NO; MEAN CORPUSCULAR HGB CONC 33.7 g/dL (32.4-35.8); MEAN CORPUSCULAR VOLUME 94.8 fL (80-100); MEAN PLATELET VOLUME 7.6 fL (7.4-10.4); MONOCYTES # (AUTO) 0.29 x10^3/uL (0.2-0.8); MONOCYTES % (AUTO) 8 % (2-9); NEUTROPHILS # (AUTO) 1.66 x10^3/uL (1.8-6.8); NEUTROPHILS % (AUTO) 49 % (42-75); PLATELET COUNT 206 x10^3/uL (130-400); RED BLOOD COUNT 3.69 x10^6/uL (3.82-5.3)
[2019-03-16 05:29] LABS: CHLORIDE 108 mmol/L (98-107)
[2019-03-16 05:40] LABS: ALANINE AMINOTRANSFERASE 46 U/L (12-78); ALBUMIN 2.8 g/dL (3.4-5.0); ALKALINE PHOSPHATASE 123 U/L (45-117); ANION GAP 1 mmol/L (5-15); BILIRUBIN,TOTAL 0.8 mg/dL (0.2-1.0); CALCIUM 8.8 mg/dL (8.5-10.1); CREATININE 0.88 mg/dL (0.55-1.02)
[2019-03-16 07:10] VITALS: BP 107/68
[2019-03-16] MEDS: AMOXICILLIN/CLAV 875-125MG TABLET PO SCH ×2 (09:31→21:07)
[2019-03-16] MEDS: CHOLESTYRAMINE LIGHT 4GM PACKET PO SCH (09:31)
[2019-03-16] MEDS: LACTOBACILLUS CHEW TABLET PO SCH ×3 (09:31→21:07)
[2019-03-16] MEDS: ENOXAPARIN 40 MG/0.4 ML SQ SCH (12:39)
[2019-03-16 13:09] VITALS: BP 100/63
[2019-03-16] MEDS ORDERED: AMINO ACID 10% IV SCH (17:00)
[2019-03-16] MEDS ORDERED: SMOF TPN IV SCH (17:00)
[2019-03-16] MEDS ORDERED: DEXTROSE 70% IV SCH (17:00)
[2019-03-16] MEDS ORDERED: [UNRECOGNIZED DRUG - OTHER] IV SCH (17:00)
[2019-03-16] MEDS ORDERED: FAT EMUL IV SCH (17:00)
[2019-03-16] MEDS: FILTER, DISP 1.2 MICRON FOR TPN/PVN IV PRN (17:23)
[2019-03-16 19:04] VITALS: BP 104/69
[2019-03-16] MEDS ORDERED: INSULIN REGULAR LOW DOSE QDAY SQ-INSULIN SCH (21:00)
[2019-03-16] MEDS: ZOLPIDEM 10MG TABLET PO SCH (21:07)
[2019-03-16] MEDS: ROPINIROLE 1MG TABLET PO SCH (21:07)
[2019-03-17] MEDS: morphine SULFATE 10 MG/ML, 1ML IVPush PRN ×5 (00:05→22:49)
[2019-03-17 00:43] VITALS: BP 99/63
[2019-03-17] MEDS: DIPHENHYDRAMINE 50 MG/ML, 1ML IVPush PRN ×4 (03:12→22:40)
[2019-03-17] MEDS: ONDANSETRON 2MG/ML, 2ML IVPush SCH ×4 (05:00→22:53)
[2019-03-17 05:44] LABS: ANION GAP 6 mmol/L (5-15); CALCIUM 8.6 mg/dL (8.5-10.1); CHLORIDE 105 mmol/L (98-107)
[2019-03-17] MEDS: LACTOBACILLUS CHEW TABLET PO SCH ×3 (07:59→22:40)
[2019-03-17] MEDS: AMOXICILLIN/CLAV 875-125MG TABLET PO SCH ×2 (07:59→22:40)
[2019-03-17] MEDS: CHOLESTYRAMINE LIGHT 4GM PACKET PO SCH (07:59)
[2019-03-17] MEDS: HYDROcodone/APAP 5/325 TABLET PO PRN ×3 (07:59→22:49)
[2019-03-17] MEDS: ENOXAPARIN 40 MG/0.4 ML SQ SCH (13:19)
[2019-03-17] MEDS ORDERED: SMOF TPN IV SCH ×3 (17:00)
[2019-03-17] MEDS ORDERED: [UNRECOGNIZED DRUG - OTHER] IV SCH ×3 (17:00)
[2019-03-17] MEDS ORDERED: FILTER, DISP 1.2 MICRON FOR TPN/PVN IV PRN (17:00)
[2019-03-17] MEDS ORDERED: DEXTROSE 70% IV SCH ×3 (17:00)
[2019-03-17] MEDS ORDERED: FAT EMUL IV SCH ×3 (17:00)
[2019-03-17] MEDS ORDERED: AMINO ACID 10% IV SCH ×3 (17:00)
[2019-03-17 19:02] VITALS: BP 108/68
[2019-03-17] MEDS: ROPINIROLE 1MG TABLET PO SCH (22:41)
[2019-03-17] MEDS: ZOLPIDEM 10MG TABLET PO SCH (22:41)
[2019-03-18 00:28] VITALS: BP 102/69
[2019-03-18] MEDS: morphine SULFATE 10 MG/ML, 1ML IVPush PRN ×5 (03:10→21:26)
[2019-03-18] MEDS: ONDANSETRON 2MG/ML, 2ML IVPush SCH ×4 (05:00→23:00)
[2019-03-18] MEDS: DIPHENHYDRAMINE 50 MG/ML, 1ML IVPush PRN ×3 (05:31→21:27)
[2019-03-18 06:36] VITALS: BP 100/65
[2019-03-18 06:39] LABS: CHLORIDE 109 mmol/L (98-107)
[2019-03-18 06:47] LABS: ANION GAP 4 mmol/L (5-15); CALCIUM 8.6 mg/dL (8.5-10.1); CREATININE 0.83 mg/dL (0.55-1.02)
[2019-03-18] MEDS: INSULIN REGULAR MEDIUM DOSE QDAY SQ-INSULIN SCH (09:00)
[2019-03-18] MEDS: CHOLESTYRAMINE LIGHT 4GM PACKET PO SCH (09:10)
[2019-03-18] MEDS: AMOXICILLIN/CLAV 875-125MG TABLET PO SCH ×2 (09:10→20:05)
[2019-03-18] MEDS: LACTOBACILLUS CHEW TABLET PO SCH ×3 (09:10→20:05)
[2019-03-18] MEDS: HYDROcodone/APAP 5/325 TABLET PO PRN ×2 (09:10→14:19)
[2019-03-18] MEDS ORDERED: DEXTROSE 70% IV SCH ×3 (11:30→17:00)
[2019-03-18] MEDS ORDERED: AMINO ACID 10% IV SCH ×3 (11:30→17:00)
[2019-03-18] MEDS ORDERED: SMOF TPN IV SCH ×3 (11:30→17:00)
[2019-03-18] MEDS ORDERED: [UNRECOGNIZED DRUG - OTHER] IV SCH ×3 (11:30→17:00)
[2019-03-18] MEDS ORDERED: FAT EMUL IV SCH ×3 (11:30→17:00)
[2019-03-18] MEDS: ENOXAPARIN 40 MG/0.4 ML SQ SCH (12:22)
[2019-03-18 13:05] VITALS: BP 106/65
[2019-03-18] MEDS ORDERED: FILTER, DISP 1.2 MICRON FOR TPN/PVN IV PRN (17:00)
[2019-03-18 18:02] VITALS: BP 110/68
[2019-03-18] MEDS: ROPINIROLE 1MG TABLET PO SCH (20:05)
[2019-03-18] MEDS: ZOLPIDEM 10MG TABLET PO SCH (20:06)
[2019-03-19 00:50] VITALS: BP 93/60
[2019-03-19] MEDS: morphine SULFATE 10 MG/ML, 1ML IVPush PRN ×6 (01:42→21:37)
[2019-03-19] MEDS: DIPHENHYDRAMINE 50 MG/ML, 1ML IVPush PRN ×4 (02:52→21:39)
[2019-03-19] MEDS: ONDANSETRON 2MG/ML, 2ML IVPush SCH ×4 (05:11→23:30)
[2019-03-19 05:57] LABS: CHLORIDE 112 mmol/L (98-107)
[2019-03-19 06:07] LABS: ALANINE AMINOTRANSFERASE 34 U/L (12-78); ALBUMIN 2.6 g/dL (3.4-5.0); ALKALINE PHOSPHATASE 128 U/L (45-117); ANION GAP 3 mmol/L (5-15); BILIRUBIN,TOTAL 0.6 mg/dL (0.2-1.0); CALCIUM 8.7 mg/dL (8.5-10.1); CREATININE 0.91 mg/dL (0.55-1.02); PREALBUMIN 24.2 mg/dL (20.0-40.0); TRIGLYCERIDES 182 mg/dL (50-200)
[2019-03-19 07:30] VITALS: BP 107/73
[2019-03-19] MEDS: LACTOBACILLUS CHEW TABLET PO SCH ×3 (07:42→21:38)
[2019-03-19] MEDS: AMOXICILLIN/CLAV 875-125MG TABLET PO SCH (07:42)
[2019-03-19] MEDS: HYDROcodone/APAP 5/325 TABLET PO PRN (07:47)
[2019-03-19] MEDS: INSULIN REGULAR MEDIUM DOSE QDAY SQ-INSULIN SCH (09:21)
[2019-03-19] MEDS: CHOLESTYRAMINE LIGHT 4GM PACKET PO SCH (09:21)
[2019-03-19] MEDS: ENOXAPARIN 40 MG/0.4 ML SQ SCH (11:45)
[2019-03-19 12:40] VITALS: BP 117/84
[2019-03-19] MEDS: TAMSULOSIN 0.4 MG CAP.ER.24H PO SCH (15:49)
[2019-03-19] MEDS: FILTER, DISP 1.2 MICRON FOR TPN/PVN IV PRN (16:56)
[2019-03-19] MEDS ORDERED: AMINO ACID 10% IV SCH (17:00)
[2019-03-19] MEDS ORDERED: [UNRECOGNIZED DRUG - OTHER] IV SCH (17:00)
[2019-03-19] MEDS ORDERED: DEXTROSE 70% IV SCH (17:00)
[2019-03-19] MEDS ORDERED: FAT EMUL IV SCH (17:00)
[2019-03-19] MEDS ORDERED: SMOF TPN IV SCH (17:00)
[2019-03-19 19:45] VITALS: BP 106/63
[2019-03-19] MEDS: ZOLPIDEM 10MG TABLET PO SCH (21:37)
[2019-03-19] MEDS: ROPINIROLE 1MG TABLET PO SCH (21:38)
[2019-03-20] MEDS: morphine SULFATE 10 MG/ML, 1ML IVPush PRN ×6 (01:34→23:43)
[2019-03-20 02:14] VITALS: BP 91/59
[2019-03-20 03:50] VITALS: BP 99/65
[2019-03-20] MEDS: DIPHENHYDRAMINE 50 MG/ML, 1ML IVPush PRN ×4 (03:51→23:42)
[2019-03-20] MEDS: ONDANSETRON 2MG/ML, 2ML IVPush SCH ×4 (05:46→23:42)
[2019-03-20 06:32] LABS: ANION GAP 5 mmol/L (5-15); CALCIUM 8.5 mg/dL (8.5-10.1); CHLORIDE 108 mmol/L (98-107); CREATININE 0.98 mg/dL (0.55-1.02)
[2019-03-20 07:30] VITALS: BP 108/72
[2019-03-20] MEDS: LACTOBACILLUS CHEW TABLET PO SCH ×3 (08:08→21:12)
[2019-03-20] MEDS: TAMSULOSIN 0.4 MG CAP.ER.24H PO SCH (08:08)
[2019-03-20] MEDS: HYDROcodone/APAP 5/325 TABLET PO PRN ×3 (08:08→17:32)
[2019-03-20] MEDS: INSULIN REGULAR MEDIUM DOSE QDAY SQ-INSULIN SCH (08:10)
[2019-03-20] MEDS: CHOLESTYRAMINE LIGHT 4GM PACKET PO SCH (10:13)
[2019-03-20] MEDS: ENOXAPARIN 40 MG/0.4 ML SQ SCH (11:45)
[2019-03-20 12:32] VITALS: BP 107/73
[2019-03-20] MEDS ORDERED: [UNRECOGNIZED DRUG - OTHER] IV SCH (17:00)
[2019-03-20] MEDS ORDERED: AMINO ACID 10% IV SCH (17:00)
[2019-03-20] MEDS ORDERED: DEXTROSE 70% IV SCH (17:00)
[2019-03-20] MEDS ORDERED: FAT EMUL IV SCH (17:00)
[2019-03-20] MEDS ORDERED: SMOF TPN IV SCH (17:00)
[2019-03-20] MEDS: FILTER, DISP 1.2 MICRON FOR TPN/PVN IV PRN (17:29)
[2019-03-20 19:01] VITALS: BP 108/73
[2019-03-20] MEDS: ZOLPIDEM 10MG TABLET PO SCH (21:12)
[2019-03-20] MEDS: ROPINIROLE 1MG TABLET PO SCH (21:12)
[2019-03-21 01:22] VITALS: BP 105/71
[2019-03-21] MEDS: HYDROcodone/APAP 5/325 TABLET PO PRN ×2 (03:04→11:33)
[2019-03-21 04:42] LABS: BASOPHILS # (AUTO) 0.01 x10^3/uL (0-0.1); BASOPHILS % (AUTO) 0 % (0-1); EOSINOPHILS # (AUTO) 0.36 x10^3/uL (0-0.4); EOSINOPHILS % (AUTO) 10 % (1-7); LYMPHOCYTES # (AUTO) 1.34 x10^3/uL (1-3.4); LYMPHOCYTES % (AUTO) 37 % (22-44); MD NO; MEAN CORPUSCULAR HEMOGLOBIN 31.1 pg (27.0-34.8); MEAN CORPUSCULAR HGB CONC 33.1 g/dL (32.4-35.8); MEAN PLATELET VOLUME 8.4 fL (7.4-10.4); MONOCYTES # (AUTO) 0.35 x10^3/uL (0.2-0.8); MONOCYTES % (AUTO) 10 % (2-9); NEUTROPHILS # (AUTO) 1.59 x10^3/uL (1.8-6.8); NEUTROPHILS % (AUTO) 44 % (42-75); PLATELET COUNT 163 x10^3/uL (130-400); RED BLOOD COUNT 3.46 x10^6/uL (3.82-5.3); RED CELL DISTRIBUTION WIDTH 13.1 % (9.6-15.2)
[2019-03-21] MEDS: morphine SULFATE 10 MG/ML, 1ML IVPush PRN ×3 (04:44→14:16)
[2019-03-21 04:50] LABS: ALBUMIN 2.5 g/dL (3.4-5.0); ANION GAP 4 mmol/L (5-15); CALCIUM 8.2 mg/dL (8.5-10.1); CHLORIDE 110 mmol/L (98-107); CREATININE 0.98 mg/dL (0.55-1.02)
[2019-03-21] MEDS: ONDANSETRON 2MG/ML, 2ML IVPush SCH ×2 (05:34→11:32)
[2019-03-21] MEDS: DIPHENHYDRAMINE 50 MG/ML, 1ML IVPush PRN ×2 (05:35→11:33)
[2019-03-21 07:07] VITALS: BP 92/61
[2019-03-21] MEDS: INSULIN REGULAR MEDIUM DOSE QDAY SQ-INSULIN SCH (08:01)
[2019-03-21] MEDS: LACTOBACILLUS CHEW TABLET PO SCH (10:11)
[2019-03-21] MEDS: TAMSULOSIN 0.4 MG CAP.ER.24H PO SCH (10:11)
[2019-03-21] MEDS: CHOLESTYRAMINE LIGHT 4GM PACKET PO SCH (10:40)
[2019-03-21] MEDS: ENOXAPARIN 40 MG/0.4 ML SQ SCH (11:33)
[2019-03-21] MEDS ORDERED: HYDR-3237 PO (14:39)
[2019-03-21] MEDS ORDERED: TAMS-11 PO (14:39)
[2019-03-21] MEDS ORDERED: CHOL239. PO (14:39)
[2019-03-21] MEDS ORDERED: Tpn Per Pharmacy MC (14:39)
[2019-03-21 15:35] VITALS: BP 123/71
== END 2019-03-21 16:39 | disposition home health service (06) | DRG 391 ==
LOC: ED 21:06 → EDIP 23:50 → 3N 03-09 00:10
PROVIDERS: ADMIT Internal Medicine; ATTEND Hospitalist
PROC: 02HV33Z Insertion of Infusion Device into Superior Vena Cava, Percutaneous Approach (ICD-10-PCS; principal; 2019-03-14)
PROC: B548ZZA Ultrasonography of Superior Vena Cava, Guidance (ICD-10-PCS; 2019-03-14)
PROC: B5181ZA Fluoroscopy of Superior Vena Cava using Low Osmolar Contrast, Guidance (ICD-10-PCS; 2019-03-14)
PROC: 3E0436Z Introduction of Nutritional Substance into Central Vein, Percutaneous Approach (ICD-10-PCS; 2019-03-14)
DX: K91.2 Postsurgical malabsorption, not elsewhere classified (principal); E43 Unspecified severe protein-calorie malnutrition; K56.609 Unspecified intestinal obstruction, unspecified as to partial versus complete obstruction; N39.0 Urinary tract infection, site not specified; B95.4 Other streptococcus as the cause of diseases classified elsewhere; D63.8 Anemia in other chronic diseases classified elsewhere; E83.42 Hypomagnesemia; E87.6 Hypokalemia; Y83.8 Other surgical procedures as the cause of abnormal reaction of the patient, or of later complication, without mention of misadventure at the time of the procedure; K52.9 Noninfective gastroenteritis and colitis, unspecified; B95.1 Streptococcus, group B, as the cause of diseases classified elsewhere; Z68.35 Body mass index [BMI] 35.0-35.9, adult; Y92.89 Other specified places as the place of occurrence of the external cause; Z93.3 Colostomy status; Z90.49 Acquired absence of other specified parts of digestive tract
CPT/HCPCS: 36415; 74021; 74245; 87046; 96361; 96372; 96374; 96375; 99285; J3475; J3490; 36573; 74176; 80048; 80053; 81001; 82040; 82962; 83690; 83735; 84100; 84134; 84478; 85025; 87040; 87086; 87147; 87324; 93005; G0378; J0610; J0744; J1644; J1650; J2405; J2550; J3480; C1751; J1200; J1720; J2270; J3420; J7030; J7040; Q0163; Q0177

== ENCOUNTER 2019-04-11 18:56 | Emergency (ER) | payer MEDICAID ==
[~2019-04-11] VITALS: Ht 170.2 cm; Wt 106.0 kg
[~2019-04-11 18:56] MED LIST changes: +CHOL239. PO; +HYDR-3237 PO; +TAMS-11 PO; +Tpn Per Pharmacy MC
[2019-04-11 20:04] LABS: BASOPHILS # (AUTO) 0.04 x10^3/uL (0-0.1); BASOPHILS % (AUTO) 1 % (0-1); EOSINOPHILS # (AUTO) 0.46 x10^3/uL (0-0.4); EOSINOPHILS % (AUTO) 8 % (1-7); LYMPHOCYTES # (AUTO) 1.81 x10^3/uL (1-3.4); LYMPHOCYTES % (AUTO) 31 % (22-44); MD NO; MEAN CORPUSCULAR HEMOGLOBIN 30.4 pg (27.0-34.8); MEAN CORPUSCULAR HGB CONC 33.1 g/dL (32.4-35.8); MEAN CORPUSCULAR VOLUME 91.9 fL (80-100); MEAN PLATELET VOLUME 8.5 fL (7.4-10.4); MONOCYTES # (AUTO) 0.36 x10^3/uL (0.2-0.8); MONOCYTES % (AUTO) 6 % (2-9); NEUTROPHILS # (AUTO) 3.16 x10^3/uL (1.8-6.8); NEUTROPHILS % (AUTO) 54 % (42-75); PLATELET COUNT 211 x10^3/uL (130-400); RED BLOOD COUNT 4.04 x10^6/uL (3.82-5.3); RED CELL DISTRIBUTION WIDTH 13.1 % (9.6-15.2)
[2019-04-11 20:12] LABS: ANION GAP 8 mmol/L (5-15); CALCIUM 8.6 mg/dL (8.5-10.1); CHLORIDE 109 mmol/L (98-107); CREATININE 0.99 mg/dL (0.55-1.02)
--- NOTE | 2019-04-11 20:18 | NUR ---
PT CO "MY PICC LINE IS INFECTED". LEFT BICEP IS RED AND SWOLLEN AROUND PICC LINE ACCESS. PT WAS HERE A COUPLE WEEKS AGO AND PICC LINE WAS INSERTED BECAUSE SHE REQUIRES TPN NUTITION BECAUSE HER INTESTINES ARE NO LONGER CAPAPLE OF ABSORBING THE PROPER AMOUNT OF NUTRITION SHE NEEDS.
[2019-04-11] MEDS ORDERED: DIPHENHYDRAMINE 50 MG/ML, 1ML ONE ×2 (20:30→22:34)
[2019-04-11] MEDS: DIPHENHYDRAMINE 50 MG/ML, 1ML IVPush ONE ×2 (20:32→22:30)
--- NOTE | 2019-04-11 22:10 | NUR ---
received report from ERASTO Quiñonez. patient c/o pain. orders made.
--- NOTE | 2019-04-11 22:18 | NUR ---
REPORT GIVEN TO FREDERIC MAURER
[2019-04-11] MEDS: ONDANSETRON 2MG/ML, 2ML IVPush ONE (22:20)
[2019-04-11] MEDS: MORPHINE SULFATE 4 MG/ML, 1ML IVPush ONE (22:20)
[2019-04-11] MEDS ORDERED: MORPHINE SULFATE 4 MG/ML, 1ML ONE (22:21)
[2019-04-11] MEDS ORDERED: ONDANSETRON 2MG/ML, 2ML ONE (22:21)
[2019-04-11] MEDS: AMPICILLIN/SULBACTAM 3 GM in SODIUM CHLORIDE 0.9% 100 ML IV ONE (22:25)
--- NOTE | 2019-04-11 22:25 | NUR ---
fire technology instructor at bedside. patient medicated for pain and nausea. antibiotic started.
--- NOTE | 2019-04-11 22:30 | NUR ---
patient c/o redness on the IV site and itchiness on her chest. MD aware. medicated.
[2019-04-11] MEDS ORDERED: DIPHENHYDRAMINE 50 MG CAPSULE ONE (22:33)
[2019-04-11] MEDS: SODIUM CHLORIDE FLUSH 10ML SYR IVF ONE (22:40)
--- NOTE | 2019-04-11 23:42 | NUR ---
patient discharged with prescription and instruction. verbalized understanding.
[2019-04-11 23:43] VITALS: BP 127/75
== END 2019-04-11 23:48 | disposition home or self-care (01) ==
LOC: ED 21:11
CPT/HCPCS: 36415 ×2; 80048 ×2; 83605 ×2; 84145 ×2; 85025 ×2; 87040 ×2; 93971; 96365 ×2; 96375 ×2; 96376 ×2; 99284 ×2; J0295 ×2; J1200; J2270; J2405 ×2

== ENCOUNTER 2019-04-18 09:13 | Emergency (ER) | payer MEDICAID ==
[~2019-04-18] VITALS: Ht 170.2 cm; Wt 109.3 kg
[2019-04-18 09:19] VITALS: BP 130/76
[2019-04-18] MEDS ORDERED: ALBUTEROL SULFATE 2.5 MG/3 ML ONE (09:54)
[2019-04-18] MEDS ORDERED: ALBUTEROL SULFATE 2.5 MG/3 ML NPPB PRN (10:00)
[2019-04-18 10:12] LABS: BASOPHILS # (AUTO) 0.02 x10^3/uL (0-0.1); BASOPHILS % (AUTO) 0 % (0-1); EOSINOPHILS # (AUTO) 0.31 x10^3/uL (0-0.4); EOSINOPHILS % (AUTO) 7 % (1-7); LYMPHOCYTES # (AUTO) 1.37 x10^3/uL (1-3.4); LYMPHOCYTES % (AUTO) 30 % (22-44); MD NO; MEAN CORPUSCULAR HEMOGLOBIN 30.1 pg (27.0-34.8); MEAN CORPUSCULAR HGB CONC 32.9 g/dL (32.4-35.8); MEAN CORPUSCULAR VOLUME 91.7 fL (80-100); MEAN PLATELET VOLUME 8.2 fL (7.4-10.4); MONOCYTES # (AUTO) 0.27 x10^3/uL (0.2-0.8); MONOCYTES % (AUTO) 6 % (2-9); NEUTROPHILS # (AUTO) 2.59 x10^3/uL (1.8-6.8); NEUTROPHILS % (AUTO) 57 % (42-75); PLATELET COUNT 216 x10^3/uL (130-400); RED BLOOD COUNT 3.91 x10^6/uL (3.82-5.3); RED CELL DISTRIBUTION WIDTH 13.3 % (9.6-15.2)
--- NOTE | 2019-04-18 10:13 | NUR ---
SOB INCREASING OVER LAST 2 DAYS. ADDITIONALLY GENERAL FACE AND EXTREMITY SWELLING. PT RECEIVING TPA THROUGH LEFT PICC ON ARRIVAL. BREATHING TX GIVEN BY RT AND MEDICATED NOTED ON MAR
[2019-04-18 10:20] LABS: ALBUMIN 2.9 g/dL (3.4-5.0); ANION GAP 5 mmol/L (5-15); CALCIUM 8.2 mg/dL (8.5-10.1); CHLORIDE 110 mmol/L (98-107); CREATININE 1.05 mg/dL (0.55-1.02)
--- NOTE | 2019-04-18 10:59 | NUR ---
PA RE-EVALUATING PT
== END 2019-04-18 11:26 ==
LOC: ED 10:13
DX: J20.9 Acute bronchitis, unspecified (principal); K21.9 Gastro-esophageal reflux disease without esophagitis; Z90.89 Acquired absence of other organs; Z90.49 Acquired absence of other specified parts of digestive tract
CPT/HCPCS: 36415; 71046; 80048; 82040; 83880; 85025; 93005; 99284; J7512

== ENCOUNTER 2019-04-21 16:50 | Emergency (ER) | payer MEDICAID ==
[~2019-04-21] VITALS: Ht 170.2 cm; Wt 107.2 kg
--- NOTE | 2019-04-21 17:49 | NUR ---
[facility]
[2019-04-21] MEDS ORDERED: PROMETHAZINE 25 MG/ML, 1ML ONE (17:54)
[2019-04-21] MEDS ORDERED: ONDANSETRON 2MG/ML, 2ML ONE (17:55)
[2019-04-21] MEDS ORDERED: SODIUM CHLORIDE 0.9% 1,000ML IVBOLUS ONE (18:00)
[2019-04-21] MEDS ORDERED: PROMETHAZINE 25 MG/ML, 1ML IM ONE (18:00)
[2019-04-21] MEDS ORDERED: ONDANSETRON 2MG/ML, 2ML IVPush ONE (18:00)
[2019-04-21] MEDS ORDERED: SODIUM CHLORIDE FLUSH 10ML SYR IVF ONE (18:00)
[2019-04-21 18:46] LABS: BASOPHILS # (AUTO) 0.01 x10^3/uL (0-0.1); BASOPHILS % (AUTO) 0 % (0-1); EOSINOPHILS % (AUTO) 0 % (1-7); LYMPHOCYTES # (AUTO) 0.93 x10^3/uL (1-3.4); LYMPHOCYTES % (AUTO) 12 % (22-44); MD NO; MEAN CORPUSCULAR HEMOGLOBIN 29.9 pg (27.0-34.8); MEAN CORPUSCULAR HGB CONC 32.9 g/dL (32.4-35.8); MEAN CORPUSCULAR VOLUME 91.1 fL (80-100); MEAN PLATELET VOLUME 8.7 fL (7.4-10.4); MONOCYTES # (AUTO) 0.07 x10^3/uL (0.2-0.8); MONOCYTES % (AUTO) 1 % (2-9); NEUTROPHILS # (AUTO) 6.62 x10^3/uL (1.8-6.8); NEUTROPHILS % (AUTO) 87 % (42-75); PLATELET COUNT 214 x10^3/uL (130-400); RED CELL DISTRIBUTION WIDTH 13.1 % (9.6-15.2)
[2019-04-21] MEDS ORDERED: DIPHENHYDRAMINE 50 MG/ML, 1ML ONE (18:52)
[2019-04-21 18:55] LABS: ALANINE AMINOTRANSFERASE 64 U/L (12-78); ALBUMIN 3.2 g/dL (3.4-5.0); ANION GAP 7 mmol/L (5-15); CALCIUM 8.8 mg/dL (8.5-10.1); CHLORIDE 112 mmol/L (98-107); CREATININE 0.97 mg/dL (0.55-1.02)
--- NOTE | 2019-04-21 18:56 | NUR ---
LUNCH RN: PT UP TO RESTROOM WITH STEADY GAIT AND TO OBTAIN URINE SAMPLE. VERBAL ORDER RECEIVED FOR BENADRYL 25MG IV FOR ITCHING, TO BE ADMIN UPON PT ARRIVAL BACK TO BED.
[2019-04-21 18:59] LABS: ALKALINE PHOSPHATASE 239 U/L (45-117); TOTAL PROTEIN 7.3 g/dL (6.4-8.2); TROPONIN I < 0.015 ng/mL (0.000-0.045)
[2019-04-21] MEDS ORDERED: DIPHENHYDRAMINE 50 MG/ML, 1ML IVPush ONE (19:00)
--- NOTE | 2019-04-21 19:11 | NUR ---
LUNCH RN: ELENA COLLECTED AND SENT. MEDICATED PER JUN. CALL LIGHT WITHIN REACH.
--- NOTE | 2019-04-21 19:33 | NUR ---
Late entry: pt here for abd pain x 3 days with no relief. Reports that ostomy is producing more feces and feels like she needs to have a blowout. Pt denies any trauma. Reports that she has been taking medications as perscribed and kept up with her infusions. Pt reports she has hx of UC. Pt connected to monitors and call light in reach. Awaiting further orders.
[2019-04-21 19:41] LABS: MICROSCOPIC AUTO
[2019-04-21 19:52] LABS: CULTURE INDICATED? YES
[2019-04-21] MEDS ORDERED: MORPHINE SULFATE 4 MG/ML, 1ML IVPush PRN (20:00)
[2019-04-21] MEDS ORDERED: MORPHINE SULFATE 4 MG/ML, 1ML ONE (20:12)
[2019-04-21 20:16] VITALS: BP 152/75
--- NOTE | 2019-04-21 20:16 | NUR ---
Pt medicated for pain.
--- NOTE | 2019-04-21 22:31 | NUR ---
Patient/Caregiver given discharge instructions and they have confirmed that they understand the instructions. Patient ambulatory with steady gait.
[2019-04-21] MEDS ORDERED: OMNIPAQUE 350 MG/ML, 100ML BOTTLE ONE (23:19)
== END 2019-04-21 22:33 | disposition home or self-care (01) ==
LOC: ED 18:09
DX: R10.84 Generalized abdominal pain (principal); R53.1 Weakness; K21.9 Gastro-esophageal reflux disease without esophagitis; Z90.49 Acquired absence of other specified parts of digestive tract
CPT/HCPCS: 36415; 71045; 74177; 80053; 81001; 83690; 83735; 83880; 84484; 85025; 87086; 87147; 96372; 96374; 96375; 99284; J1200; J2270; J2405; J2550; J7030; Q9967

== ENCOUNTER 2019-05-04 21:24 | Emergency (ER) | payer MEDICAID ==
[~2019-05-04] VITALS: Ht 170.2 cm; Wt 107.4 kg
[2019-05-04 21:25] VITALS: BP 178/97
[2019-05-04] MEDS ORDERED: MORPHINE SULFATE 4 MG/ML, 1ML ONE (22:54)
[2019-05-04] MEDS ORDERED: PROCHLORPERAZINE 5 MG/ML, 2ML ONE (22:54)
[2019-05-04] MEDS ORDERED: SODIUM CHLORIDE FLUSH 10ML SYR IVF ONE (23:00)
[2019-05-04] MEDS ORDERED: MORPHINE SULFATE 4 MG/ML, 1ML IVPush PRN (23:00)
[2019-05-04] MEDS ORDERED: PROCHLORPERAZINE 5 MG/ML, 2ML IVPush ONE (23:00)
[2019-05-04] MEDS ORDERED: SODIUM CHLORIDE 0.9% 1,000ML IVBOLUS ONE (23:00)
[2019-05-04 23:40] LABS: BASOPHILS # (AUTO) 0.11 x10^3/uL (0-0.1); BASOPHILS % (AUTO) 2 % (0-1); EOSINOPHILS # (AUTO) 0.21 x10^3/uL (0-0.4); EOSINOPHILS % (AUTO) 4 % (1-7); LYMPHOCYTES # (AUTO) 1.31 x10^3/uL (1-3.4); LYMPHOCYTES % (AUTO) 22 % (22-44); MD NO; MEAN CORPUSCULAR HEMOGLOBIN 28.7 pg (27.0-34.8); MEAN CORPUSCULAR HGB CONC 33.2 g/dL (32.4-35.8); MEAN CORPUSCULAR VOLUME 86.5 fL (80-100); MONOCYTES # (AUTO) 0.42 x10^3/uL (0.2-0.8); MONOCYTES % (AUTO) 7 % (2-9); NEUTROPHILS # (AUTO) 3.86 x10^3/uL (1.8-6.8); NEUTROPHILS % (AUTO) 65 % (42-75); PLATELET COUNT 190 x10^3/uL (130-400); RED BLOOD COUNT 4.15 x10^6/uL (3.82-5.3)
--- NOTE | 2019-05-04 23:44 | NUR ---
THIS IS A 54Y F THAT COMES IN W/ C/O ABD PAIN AND NAUSEA. PT STS SHE HAS A PICC LINE AND USES IT FOR TPN. PT STS SHE HAS HAD PAIN AND NAUSEA THAT ARE NOT IMPROVING TODAY. PT RESTING ON GURNEY, LIGHTS DIMMED, CONNECTED TO MONITORING. CALL LIGHT IN REACH
[2019-05-04 23:52] LABS: ALANINE AMINOTRANSFERASE 36 U/L (12-78); ANION GAP 7 mmol/L (5-15); CALCIUM 8.7 mg/dL (8.5-10.1); CHLORIDE 115 mmol/L (98-107); CREATININE 0.89 mg/dL (0.55-1.02)
[2019-05-04 23:54] LABS: ALKALINE PHOSPHATASE 176 U/L (45-117); BILIRUBIN,TOTAL 0.9 mg/dL (0.2-1.0); TOTAL PROTEIN 6.9 g/dL (6.4-8.2)
== END 2019-05-05 00:52 | disposition left against medical advice (07) ==
LOC: ED 22:49
DX: R10.84 Generalized abdominal pain (principal); R11.2 Nausea with vomiting, unspecified; K21.9 Gastro-esophageal reflux disease without esophagitis; Z90.49 Acquired absence of other specified parts of digestive tract
CPT/HCPCS: 36415; 80053; 83690; 85025; 96361; 96374; 96375; 99283; J0780; J2270; J7030

== ENCOUNTER 2019-05-10 14:19 | Inpatient (IN) | payer MEDICAID ==
[~2019-05-10] VITALS: Ht 170.2 cm; Wt 109.6 kg
--- NOTE | 2019-05-10 14:52 | NUR ---
[facility]
--- NOTE | 2019-05-10 15:13 | NUR ---
PT HAS CO OF LEFT UPPER EXTREMITY PAIN FROM PICC LINE. PT STATES HER HOME HEALTH RN WAS UNABLE TO RETRIEVE BLOOD RETURN W PICC LINE BUT ABLE TO FLUSH. PAIN WHEN PALPATED IN AREA. PT STATES SHE FEELS A KNOT AT INSERTION SITE. PT ALSO CO OF SOB THAT STARTED THIS AM. STATES "I AM UNABLE TO CATCH MY BREATH" DENIES CP, N/V/D NOT IN RESP DISTRESS
[2019-05-10 15:59] LABS: BASOPHILS # (AUTO) 0.01 x10^3/uL (0-0.1); BASOPHILS % (AUTO) 0 % (0-1); EOSINOPHILS # (AUTO) 0.27 x10^3/uL (0-0.4); EOSINOPHILS % (AUTO) 4 % (1-7); LYMPHOCYTES % (AUTO) 21 % (22-44); MD NO; MEAN CORPUSCULAR HEMOGLOBIN 28.7 pg (27.0-34.8); MEAN PLATELET VOLUME 8.4 fL (7.4-10.4); MONOCYTES # (AUTO) 0.37 x10^3/uL (0.2-0.8); MONOCYTES % (AUTO) 6 % (2-9); NEUTROPHILS # (AUTO) 4.22 x10^3/uL (1.8-6.8); NEUTROPHILS % (AUTO) 69 % (42-75); PLATELET COUNT 213 x10^3/uL (130-400); RED BLOOD COUNT 3.91 x10^6/uL (3.82-5.3); RED CELL DISTRIBUTION WIDTH 13.6 % (9.6-15.2)
[2019-05-10] MEDS ORDERED: MORPHINE SULFATE 4 MG/ML, 1ML IVPush ONE (16:00)
[2019-05-10 16:11] LABS: ALBUMIN 3.1 g/dL (3.4-5.0); ANION GAP 9 mmol/L (5-15); CALCIUM 8.1 mg/dL (8.5-10.1); CHLORIDE 114 mmol/L (98-107)
[2019-05-10 16:12] LABS: D-DIMER 0.32 ug/mlFEU (0.00-0.52); INTERNATIONAL NORMALIZED RATIO 0.93 (0.93-1.1); PROTHROMBIN TIME 9.9 Seconds (9.6-11.5)
[2019-05-10 16:13] LABS: ALANINE AMINOTRANSFERASE 40 U/L (12-78); ALKALINE PHOSPHATASE 203 U/L (45-117); BILIRUBIN,TOTAL 0.8 mg/dL (0.2-1.0); TOTAL PROTEIN 6.6 g/dL (6.4-8.2)
--- NOTE | 2019-05-10 16:30 | NUR ---
PT RESTING. US AT BEDSIDE. WAITING FOR RESULTS. PT HAS CO LUE EXTREMITIY.
--- NOTE | 2019-05-10 17:44 | NUR ---
DISCUSS POC Damion GALICIA, NEED US IV PRIOR TO CTA, NOT OK TO USE PICC
[2019-05-10] MEDS ORDERED: DIPHENHYDRAMINE 50 MG/ML, 1ML ONE ×2 (17:48→20:11)
[2019-05-10] MEDS ORDERED: methylPREDNISolone SOD SUCC 125 MG/2 ML ONE (17:48)
[2019-05-10] MEDS ORDERED: MORPHINE SULFATE 4 MG/ML, 1ML ONE ×2 (17:48→18:45)
[2019-05-10] MEDS ORDERED: methylPREDNISolone SOD SUCC 125 MG/2 ML IVPush ONE (18:00)
[2019-05-10] MEDS ORDERED: DIPHENHYDRAMINE 50 MG/ML, 1ML IVPush ONE (18:00)
[2019-05-10] MEDS ORDERED: HEPARIN 5,000 UNITS/ML, 1ML ONE (18:46)
[2019-05-10] MEDS ORDERED: HEPARIN 25,000 UNITS/500ML PMX 500 ML ONE (18:46)
[2019-05-10 18:54] LABS: TROPONIN I < 0.015 ng/mL (0.000-0.045)
[2019-05-10] MEDS ORDERED: HEPARIN 25,000 UNITS/500ML PMX 500 ML IV PRN (19:00)
[2019-05-10] MEDS ORDERED: HEPARIN 5,000 UNITS/ML, 1ML IV ONE (19:00)
--- NOTE | 2019-05-10 19:07 | NUR ---
HEP GTT INITIATED, 900 U/HR MEDICATED FOR PAIN
[2019-05-10] MEDS ORDERED: DIPHENHYDRAMINE 50 MG CAPSULE PO PRN (19:30)
[2019-05-10] MEDS ORDERED: ONDANSETRON ODT 4 MG PO PRN (19:30)
[2019-05-10] MEDS ORDERED: ONDANSETRON 2MG/ML, 2ML IVPush PRN (19:30)
[2019-05-10] MEDS ORDERED: hydrALAzine 20 MG/ML, 1ML IVPush PRN (19:30)
[2019-05-10] MEDS ORDERED: BACLOFEN 10 MG TABLET PO PRN (19:30)
[2019-05-10] MEDS ORDERED: ACETAMINOPHEN 325 MG TABLET PO PRN (19:30)
[2019-05-10] MEDS ORDERED: DIPHENHYDRAMINE 50 MG CAPSULE ONE (19:49)
[2019-05-10] MEDS: DIPHENHYDRAMINE 50 MG/ML, 1ML IVPush PRN (20:14)
--- NOTE | 2019-05-10 20:22 | NUR ---
MEDICATED FOR ANXIETY W ALMA, PT RESTING, HEP GTT INFUSING, ROSE GRADER IN PLACE. WAITING FOR ADMIT BED.
--- NOTE | 2019-05-10 20:39 | NUR ---
PT AMBULATING TO BATHROOM W STEADY GAIT
--- NOTE | 2019-05-10 20:44 | NUR ---
REPORT TO LARS
[2019-05-10] MEDS: morphine SULFATE 10 MG/ML, 1ML IVPush PRN (21:39)
[2019-05-10] MEDS: ROPINIROLE 1MG TABLET PO SCH (21:40)
[2019-05-10] MEDS: ZOLPIDEM 5MG TABLET PO SCH (21:40)
[2019-05-10 21:56] VITALS: BP 129/75
[2019-05-10] MEDS: NS + 20MEQ KCL 1,000 ML IV SCH (21:59)
[2019-05-11 00:45] VITALS: BP 123/20
[2019-05-11] MEDS: morphine SULFATE 10 MG/ML, 1ML IVPush PRN ×5 (00:59→17:59)
[2019-05-11 01:40] LABS: TROPONIN I < 0.015 ng/mL (0.000-0.045)
[2019-05-11] MEDS: HEPARIN 5,000 UNITS/ML, 1ML IV PRN ×2 (01:52→10:05)
[2019-05-11] MEDS: DIPHENHYDRAMINE 50 MG/ML, 1ML IVPush PRN ×3 (02:09→22:38)
[2019-05-11] MEDS: OXYcodone IR 5MG TABLET PO PRN ×3 (05:27→21:58)
[2019-05-11 06:55] VITALS: BP 112/65
[2019-05-11] MEDS: TAMSULOSIN 0.4 MG CAP.ER.24H PO SCH ×2 (08:11→08:15)
[2019-05-11] MEDS ORDERED: DIPHENHYDRAMINE 50 MG/ML, 1ML IVPush ONE (08:30)
[2019-05-11 08:35] LABS: MEAN CORPUSCULAR HGB CONC 32.9 g/dL (32.4-35.8); MEAN CORPUSCULAR VOLUME 88.1 fL (80-100); MEAN PLATELET VOLUME 8.6 fL (7.4-10.4); PLATELET COUNT 198 x10^3/uL (130-400); RED BLOOD COUNT 3.84 x10^6/uL (3.82-5.3); RED CELL DISTRIBUTION WIDTH 13.4 % (9.6-15.2)
[2019-05-11 08:50] LABS: ALANINE AMINOTRANSFERASE 38 U/L (12-78); ALBUMIN 2.8 g/dL (3.4-5.0); ANION GAP 12 mmol/L (5-15); CALCIUM 8.6 mg/dL (8.5-10.1); CHLORIDE 115 mmol/L (98-107)
[2019-05-11 08:52] LABS: ALKALINE PHOSPHATASE 178 U/L (45-117); BILIRUBIN,TOTAL 0.6 mg/dL (0.2-1.0); CREATININE 0.99 mg/dL (0.55-1.02); TOTAL PROTEIN 6.6 g/dL (6.4-8.2); TROPONIN I < 0.015 ng/mL (0.000-0.045)
[2019-05-11] MEDS ORDERED: OMNIPAQUE 350 MG/ML, 100ML BOTTLE ONE (09:07)
[2019-05-11 09:12] LABS: BASOPHILS % (AUTO) 0 % (0-1); EOSINOPHILS % (AUTO) 0 % (1-7); LYMPHOCYTES # (AUTO) 0.68 x10^3/uL (1-3.4); LYMPHOCYTES % (AUTO) 8 % (22-44); MD SCAN; MONOCYTES # (AUTO) 0.04 x10^3/uL (0.2-0.8); MONOCYTES % (AUTO) 1 % (2-9); NEUTROPHILS # (AUTO) 8.22 x10^3/uL (1.8-6.8); NEUTROPHILS % (AUTO) 92 % (42-75)
[2019-05-11] MEDS: CHOLESTYRAMINE LIGHT 4GM PACKET PO SCH (10:04)
[2019-05-11] MEDS: NS + 20MEQ KCL 1,000 ML IV SCH (11:55)
[2019-05-11 15:36] VITALS: BP 105/72
[2019-05-11] MEDS: APIXABAN 5 MG TABLET PO SCH (16:41)
[2019-05-11 21:14] VITALS: BP 96/47
[2019-05-11 21:55] VITALS: BP 100/64
[2019-05-11] MEDS: ROPINIROLE 1MG TABLET PO SCH (21:57)
[2019-05-11] MEDS: ZOLPIDEM 5MG TABLET PO SCH (21:58)
[2019-05-12 00:56] VITALS: BP 120/78
[2019-05-12] MEDS: NS + 20MEQ KCL 1,000 ML IV SCH (01:02)
[2019-05-12] MEDS: morphine SULFATE 10 MG/ML, 1ML IVPush PRN ×6 (01:02→20:59)
[2019-05-12] MEDS: APIXABAN 5 MG TABLET PO SCH ×2 (05:07→18:09)
[2019-05-12] MEDS: DIPHENHYDRAMINE 50 MG/ML, 1ML IVPush PRN ×3 (05:12→20:58)
[2019-05-12 05:42] LABS: ALBUMIN 2.7 g/dL (3.4-5.0); ANION GAP 7 mmol/L (5-15); CALCIUM 7.6 mg/dL (8.5-10.1); CHLORIDE 117 mmol/L (98-107); CREATININE 1.01 mg/dL (0.55-1.02)
[2019-05-12 05:52] LABS: BASOPHILS # (AUTO) 0.02 x10^3/uL (0-0.1); BASOPHILS % (AUTO) 0 % (0-1); EOSINOPHILS # (AUTO) 0.07 x10^3/uL (0-0.4); EOSINOPHILS % (AUTO) 1 % (1-7); LYMPHOCYTES # (AUTO) 1.89 x10^3/uL (1-3.4); LYMPHOCYTES % (AUTO) 30 % (22-44); MD NO; MEAN CORPUSCULAR HEMOGLOBIN 29.3 pg (27.0-34.8); MEAN CORPUSCULAR HGB CONC 33.7 g/dL (32.4-35.8); MEAN CORPUSCULAR VOLUME 87.1 fL (80-100); MEAN PLATELET VOLUME 8.4 fL (7.4-10.4); MONOCYTES # (AUTO) 0.32 x10^3/uL (0.2-0.8); MONOCYTES % (AUTO) 5 % (2-9); NEUTROPHILS # (AUTO) 4.09 x10^3/uL (1.8-6.8); NEUTROPHILS % (AUTO) 64 % (42-75); PLATELET COUNT 209 x10^3/uL (130-400); RED BLOOD COUNT 3.49 x10^6/uL (3.82-5.3); RED CELL DISTRIBUTION WIDTH 13.5 % (9.6-15.2)
[2019-05-12 07:35] VITALS: BP 100/56
[2019-05-12] MEDS: CHOLESTYRAMINE LIGHT 4GM PACKET PO SCH (09:00)
[2019-05-12] MEDS: TAMSULOSIN 0.4 MG CAP.ER.24H PO SCH (09:00)
[2019-05-12 17:00] VITALS: BP 126/75
[2019-05-12] MEDS ORDERED: FILTER, DISP 1.2 MICRON FOR TPN/PVN IV PRN (17:00)
[2019-05-12] MEDS ORDERED: SMOF TPN IV SCH (17:00)
[2019-05-12] MEDS ORDERED: DEXTROSE 10% 500 ML IV PRN (17:00)
[2019-05-12] MEDS ORDERED: [UNRECOGNIZED DRUG - OTHER] IV SCH (17:00)
[2019-05-12] MEDS ORDERED: DEXTROSE 70% IV SCH (17:00)
[2019-05-12] MEDS ORDERED: AMINO ACID 10% IV SCH (17:00)
[2019-05-12] MEDS ORDERED: FAT EMUL IV SCH (17:00)
[2019-05-12] MEDS ORDERED: TPN PER PHARMACY MC PRN (18:00)
[2019-05-12] MEDS: ZOLPIDEM 5MG TABLET PO SCH (20:59)
[2019-05-12] MEDS: ROPINIROLE 1MG TABLET PO SCH (21:00)
[2019-05-12 21:31] VITALS: BP 112/58
[2019-05-13] MEDS: morphine SULFATE 10 MG/ML, 1ML IVPush PRN ×4 (00:13→12:32)
[2019-05-13] MEDS: DIPHENHYDRAMINE 50 MG/ML, 1ML IVPush PRN ×2 (03:09→10:06)
[2019-05-13 03:12] VITALS: BP 123/80
[2019-05-13] MEDS: APIXABAN 5 MG TABLET PO SCH (05:29)
[2019-05-13] MEDS ORDERED: INSULIN REGULAR MEDIUM DOSE QDAY SQ-INSULIN SCH (06:00)
[2019-05-13 06:43] VITALS: BP 105/54
[2019-05-13] MEDS: CHOLESTYRAMINE LIGHT 4GM PACKET PO SCH (07:49)
[2019-05-13] MEDS: TAMSULOSIN 0.4 MG CAP.ER.24H PO SCH (07:49)
[2019-05-13 08:14] LABS: BASOPHILS # (AUTO) 0.01 x10^3/uL (0-0.1); BASOPHILS % (AUTO) 0 % (0-1); CHLORIDE 115 mmol/L (98-107); EOSINOPHILS # (AUTO) 0.28 x10^3/uL (0-0.4); EOSINOPHILS % (AUTO) 6 % (1-7); LYMPHOCYTES # (AUTO) 1.64 x10^3/uL (1-3.4); LYMPHOCYTES % (AUTO) 32 % (22-44); MD NO; MEAN CORPUSCULAR HEMOGLOBIN 28.5 pg (27.0-34.8); MEAN CORPUSCULAR HGB CONC 32.7 g/dL (32.4-35.8); MEAN CORPUSCULAR VOLUME 87.4 fL (80-100); MEAN PLATELET VOLUME 7.8 fL (7.4-10.4); MONOCYTES # (AUTO) 0.31 x10^3/uL (0.2-0.8); MONOCYTES % (AUTO) 6 % (2-9); NEUTROPHILS # (AUTO) 2.85 x10^3/uL (1.8-6.8); NEUTROPHILS % (AUTO) 56 % (42-75); PLATELET COUNT 216 x10^3/uL (130-400); RED BLOOD COUNT 3.58 x10^6/uL (3.82-5.3); RED CELL DISTRIBUTION WIDTH 14.1 % (9.6-15.2)
[2019-05-13 08:18] LABS: ANION GAP 6 mmol/L (5-15); CALCIUM 8.3 mg/dL (8.5-10.1)
[2019-05-13] MEDS ORDERED: APIX5TAB PO (10:00)
[2019-05-13 13:20] VITALS: BP 135/75
[2019-05-13] MEDS ORDERED: DEXTROSE 70% IV SCH (18:00)
[2019-05-13] MEDS ORDERED: [UNRECOGNIZED DRUG - OTHER] IV SCH (18:00)
[2019-05-13] MEDS ORDERED: FAT EMUL IV SCH (18:00)
[2019-05-13] MEDS ORDERED: SMOF TPN IV SCH (18:00)
[2019-05-13] MEDS ORDERED: AMINO ACID 10% IV SCH (18:00)
== END 2019-05-13 15:52 | disposition home or self-care (01) | DRG 314 ==
LOC: ED 17:04 → EDIP 18:57 → 4WST 21:08
PROVIDERS: ADMIT Hospitalist; ATTEND Family Medicine
PROC: 02HV33Z Insertion of Infusion Device into Superior Vena Cava, Percutaneous Approach (ICD-10-PCS; principal; 2019-05-12)
PROC: B5181ZA Fluoroscopy of Superior Vena Cava using Low Osmolar Contrast, Guidance (ICD-10-PCS; 2019-05-12)
PROC: B548ZZA Ultrasonography of Superior Vena Cava, Guidance (ICD-10-PCS; 2019-05-12)
DX: T82.868A Thrombosis due to vascular prosthetic devices, implants and grafts, initial encounter (principal); I26.99 Other pulmonary embolism without acute cor pulmonale; J96.90 Respiratory failure, unspecified, unspecified whether with hypoxia or hypercapnia; E46 Unspecified protein-calorie malnutrition; K51.90 Ulcerative colitis, unspecified, without complications; K91.2 Postsurgical malabsorption, not elsewhere classified; K68.11 Postprocedural retroperitoneal abscess; I82.A11 Acute embolism and thrombosis of right axillary vein; D64.9 Anemia, unspecified; G25.81 Restless legs syndrome; G47.00 Insomnia, unspecified; K21.9 Gastro-esophageal reflux disease without esophagitis; Y84.8 Other medical procedures as the cause of abnormal reaction of the patient, or of later complication, without mention of misadventure at the time of the procedure; Y83.8 Other surgical procedures as the cause of abnormal reaction of the patient, or of later complication, without mention of misadventure at the time of the procedure; Y92.89 Other specified places as the place of occurrence of the external cause; Z90.49 Acquired absence of other specified parts of digestive tract; Z68.37 Body mass index [BMI] 37.0-37.9, adult
CPT/HCPCS: 36415; 84145; 99285; J3475; J3490; 36573; 71045; 71275; 80048; 80053; 80069; 82962; 83735; 84100; 84484; 85025; 85379; 85520; 85610; 85730; 87040; 93005; 93306; G0378; J0610; J1644; J3480; Q9967; C1751; J1200; J2270; J2930; J3420

== ENCOUNTER 2019-05-18 17:38 | Inpatient (IN) | payer MEDICAID ==
[~2019-05-18] VITALS: Ht 170.2 cm; Wt 111.9 kg
[~2019-05-18 17:38] MED LIST changes: +APIX5TAB PO; +HYDR-2995 PO; -HYDR10TA4 PO; -ROPI2TAB4 PO; +ROPI2TAB8 PO
--- NOTE | 2019-05-18 20:11 | NUR ---
Pt laying in gurney, per pt she has not felt well sice she was discharge from hospital last Tuesday. Call light within reach.
--- NOTE | 2019-05-18 20:19 | NUR ---
pt to ultrasound
--- NOTE | 2019-05-18 21:15 | NUR ---
PT C/O RIGHT ARM PAIN, REQUESTING MEDICATION FOR PAIN, WILL UPDATE ERP
[2019-05-18] MEDS ORDERED: HYDROcodone/APAP 5/325 TABLET ONE (21:17)
--- NOTE | 2019-05-18 21:20 | NUR ---
PT MEDICATED PER MAR
[2019-05-18] MEDS ORDERED: SODIUM CHLORIDE FLUSH 10ML SYR IVF ONE (21:30)
[2019-05-18] MEDS ORDERED: HYDROcodone/APAP 5/325 TABLET PO ONE (21:30)
[2019-05-18 21:56] LABS: MEAN CORPUSCULAR HEMOGLOBIN 28.1 pg (27.0-34.8); MEAN CORPUSCULAR HGB CONC 32.9 g/dL (32.4-35.8); MEAN CORPUSCULAR VOLUME 85.4 fL (80-100); MEAN PLATELET VOLUME 8.1 fL (7.4-10.4); PLATELET COUNT 205 x10^3/uL (130-400); RED BLOOD COUNT 4.04 x10^6/uL (3.82-5.3); RED CELL DISTRIBUTION WIDTH 14.1 % (9.6-15.2)
[2019-05-18] MEDS ORDERED: HEPARIN 5,000 UNITS/ML, 1ML IV ONE (22:00)
--- NOTE | 2019-05-18 22:04 | NUR ---
Taryn wolff in ED - 05/18/19 at 2206 by APOLLO Pt c/o right arm pain, states Clarkia has not helped, also c/o feeling anxious and requesting Benadryl.
[2019-05-18 22:05] LABS: INTERNATIONAL NORMALIZED RATIO 0.98 (0.93-1.1); PROTHROMBIN TIME 10.4 Seconds (9.6-11.5)
--- NOTE | 2019-05-18 22:06 | NUR ---
Pt c/o right arm pain, states Sachse did not help, also c/o feeling anxious and requesting Benadryl.
[2019-05-18 22:11] LABS: ALANINE AMINOTRANSFERASE 41 U/L (12-78); ALBUMIN 3.1 g/dL (3.4-5.0); ANION GAP 6 mmol/L (5-15); CALCIUM 8.7 mg/dL (8.5-10.1); CHLORIDE 113 mmol/L (98-107); CREATININE 0.84 mg/dL (0.55-1.02)
[2019-05-18] MEDS ORDERED: DIPHENHYDRAMINE 50 MG/ML, 1ML ONE (22:11)
[2019-05-18 22:13] LABS: ALKALINE PHOSPHATASE 189 U/L (45-117); BILIRUBIN,TOTAL 0.6 mg/dL (0.2-1.0); TOTAL PROTEIN 6.9 g/dL (6.4-8.2)
[2019-05-18 22:20] LABS: BASOPHILS # (AUTO) 0.03 x10^3/uL (0-0.1); BASOPHILS % (AUTO) 0 % (0-1); EOSINOPHILS # (AUTO) 0.21 x10^3/uL (0-0.4); EOSINOPHILS % (AUTO) 3 % (1-7); LYMPHOCYTES # (AUTO) 1.73 x10^3/uL (1-3.4); LYMPHOCYTES % (AUTO) 27 % (22-44); MD SCAN; MONOCYTES # (AUTO) 0.47 x10^3/uL (0.2-0.8); MONOCYTES % (AUTO) 7 % (2-9); NEUTROPHILS # (AUTO) 4.06 x10^3/uL (1.8-6.8); NEUTROPHILS % (AUTO) 62 % (42-75)
[2019-05-18] MEDS ORDERED: SODIUM CHLORIDE 0.9% 1,000 ML IV ONE (22:23)
[2019-05-18] MEDS ORDERED: DIPHENHYDRAMINE 50 MG/ML, 1ML IVPush ONE (22:30)
[2019-05-18] MEDS ORDERED: SODIUM CHLORIDE FLUSH 10ML SYR IVF PRN (22:30)
[2019-05-18] MEDS ORDERED: HEPARIN 5,000 UNITS/ML, 1ML ONE (22:50)
[2019-05-18] MEDS ORDERED: HEPARIN 25,000 UNITS/250ML PMX 250 ML ONE (22:50)
[2019-05-18] MEDS ORDERED: BISACODYL 10 MG SUPP PR PRN (23:00)
[2019-05-18] MEDS ORDERED: ACETAMINOPHEN 325 MG TABLET PO PRN (23:00)
[2019-05-18] MEDS ORDERED: POLYETHYLENE GLYCOL 17 GM PACKET PO PRN (23:00)
[2019-05-18] MEDS: HEPARIN 25,000 UNITS/250ML PMX 250 ML IV PRN (23:05)
--- NOTE | 2019-05-18 23:12 | NUR ---
Heparin bolus given per JACKELIN, okay to give per MD. Heparin drip started, pt resting in rney at this time, at bedside.
--- NOTE | 2019-05-18 23:28 | NUR ---
Report given to Sriram MAURER.
[2019-05-19 00:08] VITALS: BP 144/87
[2019-05-19] MEDS: ROPINIROLE 1MG TABLET PO SCH ×2 (00:14→21:11)
[2019-05-19] MEDS: ZOLPIDEM 10MG TABLET PO SCH ×2 (00:14→21:10)
[2019-05-19] MEDS: OXYcodone/APAP 5/325MG TABLET PO PRN ×4 (00:15→22:51)
[2019-05-19 01:08] VITALS: BP 144/84
[2019-05-19 03:57] LABS: ALANINE AMINOTRANSFERASE 42 U/L (12-78); ALBUMIN 2.7 g/dL (3.4-5.0); ANION GAP 5 mmol/L (5-15); CALCIUM 8.5 mg/dL (8.5-10.1); CHLORIDE 115 mmol/L (98-107); CREATININE 0.86 mg/dL (0.55-1.02)
[2019-05-19 03:59] LABS: ALKALINE PHOSPHATASE 170 U/L (45-117); BILIRUBIN,TOTAL 0.7 mg/dL (0.2-1.0); TOTAL PROTEIN 6.3 g/dL (6.4-8.2)
[2019-05-19 04:07] LABS: MEAN CORPUSCULAR HEMOGLOBIN 28.6 pg (27.0-34.8); MEAN CORPUSCULAR HGB CONC 33.6 g/dL (32.4-35.8); MEAN CORPUSCULAR VOLUME 85.2 fL (80-100); PLATELET COUNT 192 x10^3/uL (130-400); RED BLOOD COUNT 3.79 x10^6/uL (3.82-5.3); RED CELL DISTRIBUTION WIDTH 13.9 % (9.6-15.2)
[2019-05-19 04:35] LABS: BASOPHILS # (AUTO) 0.03 x10^3/uL (0-0.1); BASOPHILS % (AUTO) 0 % (0-1); EOSINOPHILS # (AUTO) 0.22 x10^3/uL (0-0.4); EOSINOPHILS % (AUTO) 4 % (1-7); LYMPHOCYTES # (AUTO) 1.64 x10^3/uL (1-3.4); LYMPHOCYTES % (AUTO) 27 % (22-44); MD SCAN; MONOCYTES # (AUTO) 0.51 x10^3/uL (0.2-0.8); MONOCYTES % (AUTO) 8 % (2-9); NEUTROPHILS # (AUTO) 3.77 x10^3/uL (1.8-6.8); NEUTROPHILS % (AUTO) 61 % (42-75)
[2019-05-19 08:00] VITALS: BP 134/87
[2019-05-19] MEDS ORDERED: POTASSIUM CHLORIDE 20 MEQ TAB.ER.PRT PO SCH (08:00)
[2019-05-19] MEDS ORDERED: SENNA/DOCUSATE TABLET PO SCH (09:00)
[2019-05-19] MEDS: SODIUM CHLORIDE FLUSH 10ML SYR IVF SCH ×2 (09:41→21:11)
[2019-05-19] MEDS ORDERED: TPN PER PHARMACY MC PRN (12:00)
[2019-05-19] MEDS ORDERED: SODIUM CHLORIDE 0.9% 1,000 ML IV SCH (14:00)
[2019-05-19] MEDS: morphine SULFATE 10 MG/ML, 1ML IVPush PRN ×2 (14:26→21:10)
[2019-05-19 14:56] LABS: HCT (SEDRATE) 35.8 % (34.6-47.8)
[2019-05-19] MEDS ORDERED: DIPHENHYDRAMINE 25 MG CAPSULE PO PRN (15:00)
[2019-05-19 15:49] VITALS: BP 147/87
[2019-05-19] MEDS: FILTER, DISP 1.2 MICRON FOR TPN/PVN IV PRN (16:52)
[2019-05-19] MEDS: DIPHENHYDRAMINE 50 MG/ML, 1ML IVPush PRN (16:52)
[2019-05-19] MEDS ORDERED: AMINO ACID 10% 750 ML, DEXTROSE 70% 350 ML, FAT EMUL/SMOF TPN 200 ML, STERILE WATER 1,0... IV SCH (17:00)
[2019-05-19] MEDS ORDERED: PVN PER PHARMACY IV SCH (17:00)
[2019-05-19] MEDS ORDERED: DEXTROSE 50%, 50ML SYRINGE IVPush PRN (17:00)
[2019-05-19] MEDS ORDERED: DEXTROSE 10% 500 ML IV PRN (17:00)
[2019-05-19] MEDS: HEPARIN 25,000 UNITS/250ML PMX 250 ML IV PRN (18:07)
[2019-05-19 19:26] LABS: % IRON SATURATION 19 % (20-55); IRON LEVEL 88 mcg/dL (50-170); TOTAL IRON BINDING CAPACITY 468 mcg/dL (250-450)
[2019-05-19 19:48] VITALS: BP 133/86
[2019-05-19] MEDS: LOPERAMIDE 1 MG/7.5 ML LIQUID PO SCH (21:09)
[2019-05-19] MEDS: DOXYCYCLINE 100MG TABLET PO SCH (21:10)
[2019-05-19] MEDS: INSULIN REGULAR LOW DOSE Q6H X 48HRS SQ-INSULIN SCH (23:03)
[2019-05-20] MEDS: COLESEVELAM MC SCH ×2 (00:30→07:54)
[2019-05-20 01:46] VITALS: BP 126/80
[2019-05-20] MEDS: morphine SULFATE 10 MG/ML, 1ML IVPush PRN ×4 (03:55→23:46)
[2019-05-20] MEDS: DIPHENHYDRAMINE 50 MG/ML, 1ML IVPush PRN ×4 (05:11→23:45)
[2019-05-20] MEDS: INSULIN REGULAR LOW DOSE Q6H X 48HRS SQ-INSULIN SCH ×4 (05:11→23:00)
[2019-05-20 05:46] LABS: ANION GAP 7 mmol/L (5-15); CALCIUM 8.6 mg/dL (8.5-10.1); CHLORIDE 107 mmol/L (98-107); CREATININE 0.84 mg/dL (0.55-1.02)
[2019-05-20] MEDS: HEPARIN 5,000 UNITS/ML, 1ML IV PRN ×2 (05:52→19:02)
[2019-05-20 05:58] LABS: PREALBUMIN 26.8 mg/dL (20.0-40.0); TRIGLYCERIDES 134 mg/dL (50-200)
[2019-05-20] MEDS: OXYcodone/APAP 5/325MG TABLET PO PRN ×3 (08:05→21:01)
[2019-05-20] MEDS: DOXYCYCLINE 100MG TABLET PO SCH (08:05)
[2019-05-20 08:48] VITALS: BP 136/87
[2019-05-20] MEDS ORDERED: COLESEVELAM 625 MG TABLET PO SCH (09:00)
[2019-05-20] MEDS: SODIUM CHLORIDE FLUSH 10ML SYR IVF SCH ×2 (09:00→20:33)
[2019-05-20] MEDS: LOPERAMIDE 1 MG/7.5 ML LIQUID PO SCH (11:23)
[2019-05-20] MEDS: AMPICILLIN/SULBACTAM 1,500 MG in SODIUM CHLORIDE 0.9% 50 ML IV SCH ×3 (11:27→23:13)
[2019-05-20 14:13] VITALS: BP 135/87
[2019-05-20] MEDS: HEPARIN 25,000 UNITS/250ML PMX 250 ML IV PRN (14:36)
[2019-05-20] MEDS ORDERED: FAT EMUL IV SCH (17:00)
[2019-05-20] MEDS ORDERED: DEXTROSE 70% IV SCH (17:00)
[2019-05-20] MEDS ORDERED: AMINO ACID 10% IV SCH (17:00)
[2019-05-20] MEDS ORDERED: [UNRECOGNIZED DRUG - OTHER] IV SCH (17:00)
[2019-05-20] MEDS ORDERED: SMOF TPN IV SCH (17:00)
[2019-05-20] MEDS: ONDANSETRON ODT 4 MG PO PRN (17:24)
[2019-05-20] MEDS: FILTER, DISP 1.2 MICRON FOR TPN/PVN IV PRN (17:24)
[2019-05-20 19:13] VITALS: BP 123/76
[2019-05-20] MEDS: ZOLPIDEM 10MG TABLET PO SCH (20:32)
[2019-05-20] MEDS: ROPINIROLE 1MG TABLET PO SCH (20:33)
[2019-05-21 01:01] VITALS: BP 108/70
[2019-05-21] MEDS: INSULIN REGULAR LOW DOSE Q6H X 48HRS SQ-INSULIN SCH ×3 (05:00→16:56)
[2019-05-21] MEDS: AMPICILLIN/SULBACTAM 1,500 MG in SODIUM CHLORIDE 0.9% 50 ML IV SCH ×4 (05:17→23:27)
[2019-05-21] MEDS: DIPHENHYDRAMINE 50 MG/ML, 1ML IVPush PRN ×4 (06:00→20:33)
[2019-05-21 06:01] LABS: ANION GAP 6 mmol/L (5-15); CALCIUM 8.5 mg/dL (8.5-10.1); CHLORIDE 105 mmol/L (98-107)
[2019-05-21] MEDS: morphine SULFATE 10 MG/ML, 1ML IVPush PRN ×4 (06:01→20:34)
[2019-05-21 06:03] LABS: CREATININE 0.96 mg/dL (0.55-1.02)
[2019-05-21] MEDS: SODIUM CHLORIDE FLUSH 10ML SYR IVF SCH ×2 (09:00→20:33)
[2019-05-21] MEDS ORDERED: COLESEVELAM 625 MG TABLET PO SCH ×2 (09:00→18:00)
[2019-05-21 09:14] VITALS: BP 126/81
[2019-05-21] MEDS: LOPERAMIDE 1 MG/7.5 ML LIQUID PO SCH ×4 (09:42→21:13)
[2019-05-21] MEDS: ENOXAPARIN 120MG/0.8ML SQ SCH ×2 (09:42→21:16)
[2019-05-21] MEDS: OXYcodone/APAP 5/325MG TABLET PO PRN ×2 (09:42→16:56)
[2019-05-21 13:14] VITALS: BP 130/87
[2019-05-21 16:56] LABS: INTERNATIONAL NORMALIZED RATIO 0.94 (0.93-1.1)
[2019-05-21] MEDS ORDERED: FAT EMUL IV SCH (17:00)
[2019-05-21] MEDS ORDERED: DEXTROSE 70% IV SCH (17:00)
[2019-05-21] MEDS ORDERED: SMOF TPN IV SCH (17:00)
[2019-05-21] MEDS ORDERED: [UNRECOGNIZED DRUG - OTHER] IV SCH (17:00)
[2019-05-21] MEDS ORDERED: AMINO ACID 10% IV SCH (17:00)
[2019-05-21] MEDS: FILTER, DISP 1.2 MICRON FOR TPN/PVN IV PRN (18:29)
[2019-05-21] MEDS ORDERED: WARFARIN 5 MG TABLET PO-COUM SCH (18:30)
[2019-05-21 20:00] VITALS: BP 129/69
[2019-05-21] MEDS: ROPINIROLE 1MG TABLET PO SCH (21:08)
[2019-05-21] MEDS: COLESEVELAM 625 MG TABLET PO SCH (21:08)
[2019-05-21] MEDS: ZOLPIDEM 10MG TABLET PO SCH (21:09)
[2019-05-22] MEDS: DIPHENHYDRAMINE 50 MG/ML, 1ML IVPush PRN ×6 (00:31→22:21)
[2019-05-22] MEDS: morphine SULFATE 10 MG/ML, 1ML IVPush PRN ×6 (00:36→22:22)
[2019-05-22 01:59] VITALS: BP 104/69
[2019-05-22] MEDS ORDERED: INSULIN REGULAR LOW DOSE QDAY SQ-INSULIN SCH (05:00)
[2019-05-22] MEDS: AMPICILLIN/SULBACTAM 1,500 MG in SODIUM CHLORIDE 0.9% 50 ML IV SCH ×4 (05:07→23:52)
[2019-05-22 06:22] LABS: MEAN CORPUSCULAR HEMOGLOBIN 28.4 pg (27.0-34.8); MEAN CORPUSCULAR HGB CONC 33.1 g/dL (32.4-35.8); MEAN PLATELET VOLUME 8.8 fL (7.4-10.4); PLATELET COUNT 159 x10^3/uL (130-400); RED BLOOD COUNT 3.92 x10^6/uL (3.82-5.3); RED CELL DISTRIBUTION WIDTH 14.3 % (9.6-15.2)
[2019-05-22 06:31] LABS: CALCIUM 8.5 mg/dL (8.5-10.1); CHLORIDE 108 mmol/L (98-107)
[2019-05-22 06:35] LABS: BASOPHILS # (AUTO) 0.03 x10^3/uL (0-0.1); BASOPHILS % (AUTO) 1 % (0-1); EOSINOPHILS # (AUTO) 0.22 x10^3/uL (0-0.4); EOSINOPHILS % (AUTO) 5 % (1-7); LYMPHOCYTES % (AUTO) 27 % (22-44); MD NO; MONOCYTES # (AUTO) 0.41 x10^3/uL (0.2-0.8); MONOCYTES % (AUTO) 8 % (2-9); NEUTROPHILS # (AUTO) 2.87 x10^3/uL (1.8-6.8); NEUTROPHILS % (AUTO) 60 % (42-75)
[2019-05-22 06:36] LABS: ALANINE AMINOTRANSFERASE 44 U/L (12-78); ALBUMIN 2.7 g/dL (3.4-5.0); ALKALINE PHOSPHATASE 164 U/L (45-117); ANION GAP 8 mmol/L (5-15); BILIRUBIN,TOTAL 0.9 mg/dL (0.2-1.0); CREATININE 1.01 mg/dL (0.55-1.02); TOTAL PROTEIN 6.3 g/dL (6.4-8.2)
[2019-05-22 07:07] VITALS: BP 101/68
[2019-05-22 08:48] LABS: INTERNATIONAL NORMALIZED RATIO 0.97 (0.93-1.1); PROTHROMBIN TIME 10.3 Seconds (9.6-11.5)
[2019-05-22] MEDS: SODIUM CHLORIDE FLUSH 10ML SYR IVF SCH ×2 (09:00→20:59)
[2019-05-22] MEDS ORDERED: [UNRECOGNIZED DRUG - OTHER] IV SCH ×2 (09:30→17:00)
[2019-05-22] MEDS ORDERED: AMINO ACID 10% IV SCH ×2 (09:30→17:00)
[2019-05-22] MEDS ORDERED: SMOF TPN IV SCH ×2 (09:30→17:00)
[2019-05-22] MEDS ORDERED: DEXTROSE 70% IV SCH ×2 (09:30→17:00)
[2019-05-22] MEDS ORDERED: FAT EMUL IV SCH ×2 (09:30→17:00)
[2019-05-22] MEDS: ENOXAPARIN 120MG/0.8ML SQ SCH ×2 (09:31→21:00)
[2019-05-22] MEDS: LOPERAMIDE 1 MG/7.5 ML LIQUID PO SCH ×3 (09:31→22:27)
[2019-05-22] MEDS: COLESEVELAM 625 MG TABLET PO SCH ×2 (09:32→20:58)
[2019-05-22] MEDS: OXYcodone/APAP 5/325MG TABLET PO PRN ×3 (10:21→23:52)
[2019-05-22 13:37] VITALS: BP 151/86
[2019-05-22] MEDS: FILTER, DISP 1.2 MICRON FOR TPN/PVN IV PRN (16:56)
[2019-05-22] MEDS ORDERED: WARFARIN 5 MG TABLET PO-COUM ONE (18:00)
[2019-05-22] MEDS ORDERED: WARFARIN 2.5 MG TABLET PO-COUM ONE (18:07)
[2019-05-22 19:17] VITALS: BP 131/78
[2019-05-22] MEDS: ZOLPIDEM 10MG TABLET PO SCH (20:58)
[2019-05-22] MEDS: ROPINIROLE 1MG TABLET PO SCH (20:59)
[2019-05-23 00:06] VITALS: BP 120/73
[2019-05-23] MEDS: DIPHENHYDRAMINE 50 MG/ML, 1ML IVPush PRN ×5 (02:10→21:11)
[2019-05-23] MEDS: morphine SULFATE 10 MG/ML, 1ML IVPush PRN ×5 (02:10→21:10)
[2019-05-23 05:45] LABS: INTERNATIONAL NORMALIZED RATIO 1.02 (0.93-1.1); PROTHROMBIN TIME 10.8 Seconds (9.6-11.5)
[2019-05-23] MEDS: AMPICILLIN/SULBACTAM 1,500 MG in SODIUM CHLORIDE 0.9% 50 ML IV SCH ×2 (06:05→11:15)
[2019-05-23 07:55] VITALS: BP 119/73
[2019-05-23] MEDS: SODIUM CHLORIDE FLUSH 10ML SYR IVF SCH ×2 (09:00→20:53)
[2019-05-23] MEDS: COLESEVELAM 625 MG TABLET PO SCH ×2 (09:47→20:50)
[2019-05-23] MEDS: ENOXAPARIN 120MG/0.8ML SQ SCH ×2 (09:48→20:51)
[2019-05-23] MEDS: LOPERAMIDE 1 MG/7.5 ML LIQUID PO SCH ×3 (09:48→20:52)
[2019-05-23] MEDS: OXYcodone/APAP 5/325MG TABLET PO PRN ×3 (09:48→18:41)
[2019-05-23 14:35] VITALS: BP 130/70
[2019-05-23] MEDS: FILTER, DISP 1.2 MICRON FOR TPN/PVN IV PRN (16:32)
[2019-05-23] MEDS ORDERED: AMINO ACID 10% IV SCH (17:00)
[2019-05-23] MEDS ORDERED: SMOF TPN IV SCH (17:00)
[2019-05-23] MEDS ORDERED: FAT EMUL IV SCH (17:00)
[2019-05-23] MEDS ORDERED: [UNRECOGNIZED DRUG - OTHER] IV SCH (17:00)
[2019-05-23] MEDS ORDERED: DEXTROSE 70% IV SCH (17:00)
[2019-05-23] MEDS ORDERED: WARFARIN 7.5 MG TABLET PO-COUM ONE (18:00)
[2019-05-23 18:44] VITALS: BP 138/82
[2019-05-23] MEDS: ROPINIROLE 1MG TABLET PO SCH (20:50)
[2019-05-23] MEDS: ZOLPIDEM 10MG TABLET PO SCH (20:50)
[2019-05-23] MEDS: AMOXICILLIN/CLAV 875-125MG TABLET PO SCH (20:50)
[2019-05-23] MEDS: RIFAXIMIN 550 MG TABLET PO SCH (20:51)
[2019-05-24 01:10] VITALS: BP 148/82
[2019-05-24] MEDS: morphine SULFATE 10 MG/ML, 1ML IVPush PRN ×6 (01:23→23:32)
[2019-05-24] MEDS: DIPHENHYDRAMINE 50 MG/ML, 1ML IVPush PRN ×6 (01:23→23:32)
[2019-05-24 06:01] LABS: INTERNATIONAL NORMALIZED RATIO 1.07 (0.93-1.1); PROTHROMBIN TIME 11.4 Seconds (9.6-11.5)
[2019-05-24 06:05] LABS: ALBUMIN 2.7 g/dL (3.4-5.0); ANION GAP 6 mmol/L (5-15); CALCIUM 8.5 mg/dL (8.5-10.1); CHLORIDE 104 mmol/L (98-107)
[2019-05-24 06:09] LABS: ALANINE AMINOTRANSFERASE 50 U/L (12-78); ALKALINE PHOSPHATASE 185 U/L (45-117); BILIRUBIN,TOTAL 0.6 mg/dL (0.2-1.0); CREATININE 1.02 mg/dL (0.55-1.02); TOTAL PROTEIN 6.3 g/dL (6.4-8.2)
[2019-05-24] MEDS: SODIUM CHLORIDE FLUSH 10ML SYR IVF SCH ×2 (08:24→21:36)
[2019-05-24] MEDS ORDERED: ACETAMINOPHEN 325 MG TABLET PO PRN (08:30)
[2019-05-24] MEDS ORDERED: PROMETHAZINE 25 MG/ML, 1ML IV PRN (08:30)
[2019-05-24] MEDS ORDERED: LABETALOL 5MG/ML, 20ML IV PRN (08:30)
[2019-05-24] MEDS ORDERED: OXYcodone 5 MG/5 ML ORAL.SOL UDC PO PRN (08:30)
[2019-05-24] MEDS ORDERED: hydrALAzine 20 MG/ML, 1ML IV PRN (08:30)
[2019-05-24] MEDS ORDERED: MEPERIDINE/PF 25MG/ML,1ML IVPush PRN (08:30)
[2019-05-24] MEDS ORDERED: EPHEDRINE 50 MG/ML, 1ML IVPush PRN (08:30)
[2019-05-24] MEDS ORDERED: ONDANSETRON 2MG/ML, 2ML IV PRN (08:30)
[2019-05-24] MEDS ORDERED: HYDROmorphone 2 MG/ML, 1ML IVPush PRN (08:30)
[2019-05-24] MEDS: ENOXAPARIN 120MG/0.8ML SQ SCH ×2 (08:40→21:14)
[2019-05-24] MEDS: AMOXICILLIN/CLAV 875-125MG TABLET PO SCH ×2 (08:42→21:13)
[2019-05-24] MEDS: COLESEVELAM 625 MG TABLET PO SCH ×2 (08:42→21:12)
[2019-05-24] MEDS: LOPERAMIDE 1 MG/7.5 ML LIQUID PO SCH ×3 (08:42→21:36)
[2019-05-24] MEDS: RIFAXIMIN 550 MG TABLET PO SCH ×2 (08:42→21:14)
[2019-05-24 12:04] VITALS: BP 114/78
[2019-05-24] MEDS ORDERED: PROPOFOL 50 ML ONE (12:23)
[2019-05-24] MEDS ORDERED: MIDAZOLAM 1 MG/ML, 2ML ONE (12:58)
[2019-05-24] MEDS ORDERED: PROPOFOL 10 MG/ML, 20ML ONE (13:19)
[2019-05-24] MEDS ORDERED: FENTANYL PF 100 MCG/2ML ONE (14:02)
[2019-05-24] MEDS: FENTANYL PF 100 MCG/2ML IV PRN ×2 (14:04→14:10)
[2019-05-24] MEDS ORDERED: PROPOFOL 10 MG/ML, 50ML ONE (14:26)
[2019-05-24 14:57] VITALS: BP 124/73
[2019-05-24 15:16] VITALS: BP 123/86
[2019-05-24] MEDS: ONDANSETRON ODT 4 MG PO PRN (15:21)
[2019-05-24] MEDS ORDERED: DEXTROSE 70% IV SCH (17:00)
[2019-05-24] MEDS ORDERED: FILTER, DISP 1.2 MICRON FOR TPN/PVN IV PRN (17:00)
[2019-05-24] MEDS ORDERED: AMINO ACID 10% IV SCH (17:00)
[2019-05-24] MEDS ORDERED: SMOF TPN IV SCH (17:00)
[2019-05-24] MEDS ORDERED: [UNRECOGNIZED DRUG - OTHER] IV SCH (17:00)
[2019-05-24] MEDS ORDERED: FAT EMUL IV SCH (17:00)
[2019-05-24] MEDS ORDERED: WARFARIN 10 MG TABLET PO-COUM ONE (18:00)
[2019-05-24] MEDS: OXYcodone/APAP 5/325MG TABLET PO PRN (18:05)
[2019-05-24 19:19] VITALS: BP 105/71
[2019-05-24] MEDS: ZOLPIDEM 10MG TABLET PO SCH (21:13)
[2019-05-24] MEDS: ROPINIROLE 1MG TABLET PO SCH (21:14)
[2019-05-25 01:27] VITALS: BP 111/75
[2019-05-25] MEDS: DIPHENHYDRAMINE 50 MG/ML, 1ML IVPush PRN ×2 (03:26→07:31)
[2019-05-25] MEDS: morphine SULFATE 10 MG/ML, 1ML IVPush PRN ×2 (03:28→07:32)
[2019-05-25 05:21] LABS: INTERNATIONAL NORMALIZED RATIO 1.21 (0.93-1.1); PROTHROMBIN TIME 12.9 Seconds (9.6-11.5)
[2019-05-25 06:45] VITALS: BP 107/74
[2019-05-25] MEDS: SODIUM CHLORIDE FLUSH 10ML SYR IVF SCH ×2 (08:26→21:18)
[2019-05-25] MEDS: AMOXICILLIN/CLAV 875-125MG TABLET PO SCH ×2 (08:37→21:08)
[2019-05-25] MEDS: COLESEVELAM 625 MG TABLET PO SCH ×2 (08:37→21:09)
[2019-05-25] MEDS: LOPERAMIDE 1 MG/7.5 ML LIQUID PO SCH ×4 (08:38→21:17)
[2019-05-25] MEDS: RIFAXIMIN 550 MG TABLET PO SCH ×2 (08:38→21:09)
[2019-05-25] MEDS: ENOXAPARIN 120MG/0.8ML SQ SCH ×2 (08:38→21:10)
[2019-05-25] MEDS: OXYcodone/APAP 5/325MG TABLET PO PRN ×3 (10:56→21:32)
[2019-05-25] MEDS ORDERED: DIPHENOXYLATE/ATROPINE TABLET PO PRN (12:30)
[2019-05-25 13:17] VITALS: BP 102/71
[2019-05-25] MEDS ORDERED: SMOF TPN IV SCH (17:00)
[2019-05-25] MEDS ORDERED: FAT EMUL IV SCH (17:00)
[2019-05-25] MEDS ORDERED: AMINO ACID 10% IV SCH (17:00)
[2019-05-25] MEDS ORDERED: [UNRECOGNIZED DRUG - OTHER] IV SCH (17:00)
[2019-05-25] MEDS ORDERED: DEXTROSE 70% IV SCH (17:00)
[2019-05-25] MEDS ORDERED: FILTER, DISP 1.2 MICRON FOR TPN/PVN IV PRN (17:00)
[2019-05-25] MEDS ORDERED: WARFARIN 10 MG TABLET PO-COUM ONE (18:00)
[2019-05-25 19:58] VITALS: BP 112/81
[2019-05-25] MEDS: ZOLPIDEM 10MG TABLET PO SCH (21:09)
[2019-05-25] MEDS: OMEPRAZOLE/SOD. BICARB. PACKET PO SCH (21:17)
[2019-05-25] MEDS: ROPINIROLE 1MG TABLET PO SCH (21:17)
[2019-05-26 00:30] VITALS: BP 90/60
[2019-05-26] MEDS: morphine SULFATE 10 MG/ML, 1ML IVPush PRN ×5 (01:53→23:13)
[2019-05-26 05:35] LABS: INTERNATIONAL NORMALIZED RATIO 1.88 (0.93-1.1); PROTHROMBIN TIME 20.1 Seconds (9.6-11.5)
[2019-05-26 05:39] LABS: CHLORIDE 107 mmol/L (98-107)
[2019-05-26 05:49] LABS: ANION GAP 7 mmol/L (5-15); CALCIUM 8.8 mg/dL (8.5-10.1); CREATININE 0.99 mg/dL (0.55-1.02)
[2019-05-26] MEDS: LOPERAMIDE 2 MG CAPSULE PO SCH ×4 (06:03→21:00)
[2019-05-26] MEDS: OMEPRAZOLE/SOD. BICARB. PACKET PO SCH ×2 (09:00→21:40)
[2019-05-26] MEDS ORDERED: DIPHENHYDRAMINE 12.5MG/5ML, 10ML UDC PO PRN (09:00)
[2019-05-26 09:19] VITALS: BP 100/65
[2019-05-26] MEDS: OXYcodone/APAP 5/325MG TABLET PO PRN ×2 (09:47→13:48)
[2019-05-26] MEDS: COLESEVELAM 625 MG TABLET PO SCH ×2 (09:48→21:37)
[2019-05-26] MEDS: RIFAXIMIN 550 MG TABLET PO SCH ×2 (09:49→21:39)
[2019-05-26] MEDS: AMOXICILLIN/CLAV 875-125MG TABLET PO SCH ×2 (09:50→21:38)
[2019-05-26] MEDS: ENOXAPARIN 120MG/0.8ML SQ SCH ×2 (09:50→21:42)
[2019-05-26] MEDS: SODIUM CHLORIDE FLUSH 10ML SYR IVF SCH ×2 (09:50→21:43)
[2019-05-26] MEDS: DIPHENHYDRAMINE 50 MG/ML, 1ML IVPush PRN ×2 (14:12→20:27)
[2019-05-26 16:09] VITALS: BP 92/65
[2019-05-26] MEDS ORDERED: DEXTROSE 70% IV SCH (17:00)
[2019-05-26] MEDS ORDERED: FAT EMUL IV SCH (17:00)
[2019-05-26] MEDS ORDERED: SMOF TPN IV SCH (17:00)
[2019-05-26] MEDS ORDERED: AMINO ACID 10% IV SCH (17:00)
[2019-05-26] MEDS ORDERED: [UNRECOGNIZED DRUG - OTHER] IV SCH (17:00)
[2019-05-26] MEDS: OCTREOTIDE 500 MCG/ML, 1ML (0.5MG/ML) SQ SCH ×2 (17:28→23:23)
[2019-05-26] MEDS ORDERED: WARFARIN 5 MG TABLET PO-COUM ONE (18:00)
[2019-05-26] MEDS: ZOLPIDEM 10MG TABLET PO SCH (21:39)
[2019-05-26] MEDS: ROPINIROLE 1MG TABLET PO SCH (21:40)
[2019-05-26 21:45] VITALS: BP 101/68
[2019-05-27 01:53] VITALS: BP 99/64
[2019-05-27] MEDS: morphine SULFATE 10 MG/ML, 1ML IVPush PRN ×6 (03:16→23:08)
[2019-05-27] MEDS: DIPHENHYDRAMINE 50 MG/ML, 1ML IVPush PRN ×4 (04:27→23:07)
[2019-05-27 05:53] LABS: INTERNATIONAL NORMALIZED RATIO 2.54 (0.93-1.1); PROTHROMBIN TIME 27.2 Seconds (9.6-11.5)
[2019-05-27] MEDS: LOPERAMIDE 2 MG CAPSULE PO SCH ×4 (05:58→21:52)
[2019-05-27 06:06] LABS: ANION GAP 10 mmol/L (5-15); CALCIUM 8.5 mg/dL (8.5-10.1); CHLORIDE 102 mmol/L (98-107); CREATININE 1.09 mg/dL (0.55-1.02)
[2019-05-27] MEDS: OXYcodone/APAP 5/325MG TABLET PO PRN ×3 (06:23→16:22)
[2019-05-27] MEDS: COLESEVELAM 625 MG TABLET PO SCH ×2 (08:44→21:52)
[2019-05-27] MEDS: AMOXICILLIN/CLAV 875-125MG TABLET PO SCH ×2 (08:44→21:47)
[2019-05-27] MEDS: RIFAXIMIN 550 MG TABLET PO SCH ×2 (08:44→21:47)
[2019-05-27] MEDS: OMEPRAZOLE/SOD. BICARB. PACKET PO SCH ×2 (08:45→21:00)
[2019-05-27 08:50] VITALS: BP 122/83
[2019-05-27] MEDS: OCTREOTIDE 500 MCG/ML, 1ML (0.5MG/ML) SQ SCH ×3 (10:52→22:38)
[2019-05-27] MEDS: SODIUM CHLORIDE FLUSH 10ML SYR IVF SCH ×2 (10:53→21:54)
[2019-05-27 14:01] VITALS: BP 137/90
[2019-05-27] MEDS ORDERED: AMINO ACID 10% IV SCH ×2 (17:00)
[2019-05-27] MEDS ORDERED: [UNRECOGNIZED DRUG - OTHER] IV SCH ×2 (17:00)
[2019-05-27] MEDS ORDERED: DEXTROSE 70% IV SCH ×2 (17:00)
[2019-05-27] MEDS ORDERED: SMOF TPN IV SCH ×2 (17:00)
[2019-05-27] MEDS ORDERED: FAT EMUL IV SCH ×2 (17:00)
[2019-05-27] MEDS ORDERED: WARFARIN 5 MG TABLET PO-COUM ONE (18:00)
[2019-05-27 19:54] VITALS: BP 130/85
[2019-05-27] MEDS: ZOLPIDEM 10MG TABLET PO SCH (21:47)
[2019-05-27] MEDS: ROPINIROLE 1MG TABLET PO SCH (21:52)
[2019-05-28 01:16] VITALS: BP 135/93
[2019-05-28] MEDS: morphine SULFATE 10 MG/ML, 1ML IVPush PRN ×4 (03:04→20:45)
[2019-05-28] MEDS: DIPHENHYDRAMINE 50 MG/ML, 1ML IVPush PRN ×3 (05:48→20:44)
[2019-05-28] MEDS: LOPERAMIDE 2 MG CAPSULE PO SCH ×4 (05:49→20:43)
[2019-05-28 06:48] LABS: INTERNATIONAL NORMALIZED RATIO 2.42 (0.93-1.1); PROTHROMBIN TIME 25.9 Seconds (9.6-11.5)
[2019-05-28 06:57] VITALS: BP 110/71
[2019-05-28] MEDS: OMEPRAZOLE/SOD. BICARB. PACKET PO SCH ×2 (08:35→20:45)
[2019-05-28] MEDS: COLESEVELAM 625 MG TABLET PO SCH ×2 (08:35→20:43)
[2019-05-28] MEDS: AMOXICILLIN/CLAV 875-125MG TABLET PO SCH ×2 (08:36→20:42)
[2019-05-28] MEDS: RIFAXIMIN 550 MG TABLET PO SCH ×2 (08:36→20:43)
[2019-05-28] MEDS: SODIUM CHLORIDE FLUSH 10ML SYR IVF SCH ×2 (08:36→20:42)
[2019-05-28] MEDS: OCTREOTIDE 500 MCG/ML, 1ML (0.5MG/ML) SQ SCH ×3 (09:00→20:44)
[2019-05-28] MEDS: OXYcodone/APAP 5/325MG TABLET PO PRN ×2 (11:02→17:02)
[2019-05-28 14:39] VITALS: BP 138/87
[2019-05-28] MEDS ORDERED: WARFARIN 5 MG TABLET PO-COUM ONE (18:00)
[2019-05-28 19:08] VITALS: BP 158/85
[2019-05-28] MEDS: ZOLPIDEM 10MG TABLET PO SCH (20:42)
[2019-05-28] MEDS: ROPINIROLE 1MG TABLET PO SCH (20:43)
[2019-05-29] MEDS: OXYcodone/APAP 5/325MG TABLET PO PRN ×2 (00:36→09:08)
[2019-05-29] MEDS: morphine SULFATE 10 MG/ML, 1ML IVPush PRN ×5 (01:24→20:35)
[2019-05-29 02:14] VITALS: BP 109/69
[2019-05-29] MEDS: LOPERAMIDE 2 MG CAPSULE PO SCH ×4 (06:09→20:42)
[2019-05-29] MEDS: DIPHENHYDRAMINE 50 MG/ML, 1ML IVPush PRN ×3 (06:09→20:35)
[2019-05-29 06:27] LABS: INTERNATIONAL NORMALIZED RATIO 2.13 (0.93-1.1); PROTHROMBIN TIME 22.7 Seconds (9.6-11.5)
[2019-05-29 06:30] LABS: ANION GAP 5 mmol/L (5-15); CALCIUM 8.3 mg/dL (8.5-10.1); CHLORIDE 107 mmol/L (98-107)
[2019-05-29 06:31] LABS: CREATININE 0.97 mg/dL (0.55-1.02)
[2019-05-29 07:01] LABS: MEAN CORPUSCULAR VOLUME 85.4 fL (80-100); PLATELET COUNT 171 x10^3/uL (130-400); RED CELL DISTRIBUTION WIDTH 14.6 % (9.6-15.2)
[2019-05-29 07:21] VITALS: BP 112/70
[2019-05-29 07:45] LABS: BASOPHILS # (AUTO) 0.01 x10^3/uL (0-0.1); BASOPHILS % (AUTO) 0 % (0-1); EOSINOPHILS # (AUTO) 0.25 x10^3/uL (0-0.4); EOSINOPHILS % (AUTO) 7 % (1-7); LYMPHOCYTES # (AUTO) 1.31 x10^3/uL (1-3.4); LYMPHOCYTES % (AUTO) 37 % (22-44); MD SCAN; MONOCYTES # (AUTO) 0.36 x10^3/uL (0.2-0.8); MONOCYTES % (AUTO) 10 % (2-9); NEUTROPHILS # (AUTO) 1.62 x10^3/uL (1.8-6.8); NEUTROPHILS % (AUTO) 46 % (42-75)
[2019-05-29] MEDS: OMEPRAZOLE/SOD. BICARB. PACKET PO SCH ×2 (09:00→20:43)
[2019-05-29] MEDS: SODIUM CHLORIDE FLUSH 10ML SYR IVF SCH (09:00)
[2019-05-29] MEDS: COLESEVELAM 625 MG TABLET PO SCH ×2 (09:07→20:41)
[2019-05-29] MEDS: RIFAXIMIN 550 MG TABLET PO SCH ×2 (09:07→20:42)
[2019-05-29] MEDS: OCTREOTIDE 500 MCG/ML, 1ML (0.5MG/ML) SQ SCH ×3 (09:07→20:40)
[2019-05-29] MEDS: AMOXICILLIN/CLAV 875-125MG TABLET PO SCH (09:07)
[2019-05-29 13:38] VITALS: BP 125/77
[2019-05-29] MEDS ORDERED: WARFARIN 7.5 MG TABLET PO-COUM ONE (18:00)
[2019-05-29 19:48] VITALS: BP 140/77
[2019-05-29] MEDS: ENOXAPARIN 120MG/0.8ML SQ SCH (20:39)
[2019-05-29] MEDS: ROPINIROLE 1MG TABLET PO SCH (20:41)
[2019-05-29] MEDS: ZOLPIDEM 10MG TABLET PO SCH (20:42)
[2019-05-29] MEDS: Enoxaparin 1 mg/kg protocol SQ SCH (20:47)
[2019-05-30] MEDS: morphine SULFATE 10 MG/ML, 1ML IVPush PRN ×5 (01:24→21:12)
[2019-05-30 01:29] VITALS: BP 117/76
[2019-05-30] MEDS: LOPERAMIDE 2 MG CAPSULE PO SCH ×4 (06:00→21:10)
[2019-05-30 06:15] LABS: INTERNATIONAL NORMALIZED RATIO 2.17 (0.93-1.1); PROTHROMBIN TIME 23.2 Seconds (9.6-11.5)
[2019-05-30 07:41] VITALS: BP 118/70
[2019-05-30] MEDS: ENOXAPARIN 120MG/0.8ML SQ SCH ×2 (08:05→21:10)
[2019-05-30 09:33] LABS: BASOPHILS # (AUTO) 0.11 x10^3/uL (0-0.1); BASOPHILS % (AUTO) 2 % (0-1); EOSINOPHILS # (AUTO) 0.26 x10^3/uL (0-0.4); EOSINOPHILS % (AUTO) 5 % (1-7); LYMPHOCYTES # (AUTO) 1.91 x10^3/uL (1-3.4); LYMPHOCYTES % (AUTO) 38 % (22-44); MD NO; MEAN CORPUSCULAR HEMOGLOBIN 28.3 pg (27.0-34.8); MEAN CORPUSCULAR HGB CONC 33.7 g/dL (32.4-35.8); MEAN CORPUSCULAR VOLUME 84.1 fL (80-100); MEAN PLATELET VOLUME 9.3 fL (7.4-10.4); MONOCYTES # (AUTO) 0.33 x10^3/uL (0.2-0.8); MONOCYTES % (AUTO) 7 % (2-9); NEUTROPHILS # (AUTO) 2.43 x10^3/uL (1.8-6.8); NEUTROPHILS % (AUTO) 48 % (42-75); PLATELET COUNT 231 x10^3/uL (130-400); RED BLOOD COUNT 3.93 x10^6/uL (3.82-5.3); RED CELL DISTRIBUTION WIDTH 15.1 % (9.6-15.2)
[2019-05-30 09:36] LABS: ALANINE AMINOTRANSFERASE 107 U/L (12-78); ALBUMIN 3.3 g/dL (3.4-5.0); ANION GAP 8 mmol/L (5-15); CALCIUM 8.6 mg/dL (8.5-10.1); CHLORIDE 108 mmol/L (98-107); CREATININE 1.05 mg/dL (0.55-1.02)
[2019-05-30 09:38] LABS: ALKALINE PHOSPHATASE 270 U/L (45-117); BILIRUBIN,TOTAL 0.7 mg/dL (0.2-1.0); TOTAL PROTEIN 7.4 g/dL (6.4-8.2)
[2019-05-30] MEDS: Enoxaparin 1 mg/kg protocol SQ SCH ×2 (09:39→21:00)
[2019-05-30] MEDS: OMEPRAZOLE/SOD. BICARB. PACKET PO SCH ×2 (09:39→21:00)
[2019-05-30] MEDS: COLESEVELAM 625 MG TABLET PO SCH ×2 (09:39→21:10)
[2019-05-30] MEDS: RIFAXIMIN 550 MG TABLET PO SCH ×2 (09:39→21:11)
[2019-05-30] MEDS: DIPHENHYDRAMINE 50 MG/ML, 1ML IVPush PRN ×2 (09:51→21:12)
[2019-05-30] MEDS: OCTREOTIDE 500 MCG/ML, 1ML (0.5MG/ML) SQ SCH ×3 (11:05→21:10)
[2019-05-30 13:24] VITALS: BP 113/57
[2019-05-30] MEDS ORDERED: FENTANYL PF 100 MCG/2ML ONE (14:58)
[2019-05-30] MEDS ORDERED: MIDAZOLAM 1 MG/ML, 5ML ONE (14:58)
[2019-05-30] MEDS ORDERED: FLUMAZENIL 0.1 MG/1 ML, 5ML ONE (14:59)
[2019-05-30] MEDS ORDERED: NALOXONE 1 MG/ML, 2ML ONE (14:59)
[2019-05-30] MEDS ORDERED: VANCOMYCIN 2,000 MG in SODIUM CHLORIDE 0.9% 500 ML IV ONE (15:30)
[2019-05-30] MEDS ORDERED: LIDOCAINE 1%, 20ML ONE (16:07)
[2019-05-30] MEDS ORDERED: DIPHENHYDRAMINE 50 MG/ML, 1ML IVPush ONE (17:30)
[2019-05-30] MEDS ORDERED: WARFARIN 7.5 MG TABLET PO-COUM ONE (18:00)
[2019-05-30] MEDS: OXYcodone/APAP 5/325MG TABLET PO PRN (18:23)
[2019-05-30 19:32] VITALS: BP 96/66
[2019-05-30] MEDS: ZOLPIDEM 10MG TABLET PO SCH (21:11)
[2019-05-30] MEDS: ROPINIROLE 1MG TABLET PO SCH (21:11)
[2019-05-31 00:34] VITALS: BP 95/66
[2019-05-31] MEDS: OXYcodone/APAP 5/325MG TABLET PO PRN ×3 (00:37→11:22)
[2019-05-31] MEDS: morphine SULFATE 10 MG/ML, 1ML IVPush PRN ×3 (04:02→12:22)
[2019-05-31 04:25] LABS: INTERNATIONAL NORMALIZED RATIO 2.25 (0.93-1.1)
[2019-05-31] MEDS: LOPERAMIDE 2 MG CAPSULE PO SCH ×3 (05:39→16:23)
[2019-05-31] MEDS: DIPHENHYDRAMINE 50 MG/ML, 1ML IVPush PRN ×2 (05:53→11:21)
[2019-05-31] MEDS: [UNRECOGNIZED DRUG - REMARK] MC SCH ×2 (07:30→15:30)
[2019-05-31] MEDS: OMEPRAZOLE/SOD. BICARB. PACKET PO SCH (09:00)
[2019-05-31] MEDS: ENOXAPARIN 120MG/0.8ML SQ SCH (09:00)
[2019-05-31] MEDS: Enoxaparin 1 mg/kg protocol SQ SCH (09:00)
[2019-05-31] MEDS: RIFAXIMIN 550 MG TABLET PO SCH (09:06)
[2019-05-31] MEDS: COLESEVELAM 625 MG TABLET PO SCH (09:06)
[2019-05-31 09:28] VITALS: BP 103/73
[2019-05-31] MEDS ORDERED: WARF7.5T PO-COUM (10:51)
[2019-05-31] MEDS ORDERED: DIPH1TAB6 PO (11:17)
[2019-05-31] MEDS ORDERED: COLE625T12 PO (11:17)
[2019-05-31] MEDS ORDERED: LOPE2CAP PO (11:17)
[2019-05-31] MEDS: OCTREOTIDE 500 MCG/ML, 1ML (0.5MG/ML) SQ SCH ×2 (12:23→16:00)
[2019-05-31 14:30] VITALS: BP 130/84
[2019-05-31] MEDS ORDERED: WARFARIN 7.5 MG TABLET PO-COUM SCH (18:00)
== END 2019-05-31 16:30 | disposition home health service (06) | DRG 300 ==
LOC: ED 20:52 → EDIP 22:35 → 3N 23:52
PROVIDERS: ADMIT Internal Medicine; ATTEND Family Medicine
PROC: 0JH63XZ Insertion of Tunneled Vascular Access Device into Chest Subcutaneous Tissue and Fascia, Percutaneous Approach (ICD-10-PCS; 2019-05-18)
PROC: 02H633Z Insertion of Infusion Device into Right Atrium, Percutaneous Approach (ICD-10-PCS; 2019-05-18)
PROC: 0DB88ZX Excision of Small Intestine, Via Natural or Artificial Opening Endoscopic, Diagnostic (ICD-10-PCS; principal; 2019-05-24 14:00)
DX: I82.4Y1 Acute embolism and thrombosis of unspecified deep veins of right proximal lower extremity (principal); L03.311 Cellulitis of abdominal wall; E66.9 Obesity, unspecified; G25.81 Restless legs syndrome; G56.03 Carpal tunnel syndrome, bilateral upper limbs; K21.9 Gastro-esophageal reflux disease without esophagitis; G47.00 Insomnia, unspecified; E87.6 Hypokalemia; Z68.38 Body mass index [BMI] 38.0-38.9, adult; Z88.2 Allergy status to sulfonamides; Z88.8 Allergy status to other drugs, medicaments and biological substances; Z91.041 Radiographic dye allergy status; Z79.01 Long term (current) use of anticoagulants; Z82.49 Family history of ischemic heart disease and other diseases of the circulatory system; Z86.718 Personal history of other venous thrombosis and embolism; Z90.49 Acquired absence of other specified parts of digestive tract; Z93.3 Colostomy status; Z98.84 Bariatric surgery status; Z86.711 Personal history of pulmonary embolism
CPT/HCPCS: 36415; 77001; 86147; 99285; J3475; J3490; 36558; 76937; 80048; 80053; 81240; 82962; 83540; 83550; 83735; 84100; 84134; 84478; 85025; 85520; 85610; 85651; 85730; 86140; 88305; 99156; 99157; G0378; J0610; J1644; J1650; J2250; J2354; J2704; J3010; J3411; J3480; Q0162; C1725; C1751; J0295; J1200; J1720; J2270; J2310; J3415; J3420; J7030; Q0177

== ENCOUNTER 2019-06-05 14:32 | Emergency (ER) | payer MEDICAID ==
[~2019-06-05] VITALS: Ht 170.2 cm; Wt 108.1 kg
[~2019-06-05 14:32] MED LIST changes: +COLE625T12 PO; +DIPH1TAB6 PO; +WARF7.5T PO-COUM
--- NOTE | 2019-06-05 14:57 | NUR ---
PT HERE WITH C/O NECK AND CHEST PAIN AFTER NIGHTLY TPN INFUSIONS. PT STATES HAS PICC LINE AND IS ON TPN DUE TO MALABSORPTION AND HIGH OUTPUT THROUGH ILEOSTOMY. PT AAO X 4, NAD, ROOM AIR, CALL LIGHT WITHIN REACH AND SIDERAIL X [address] PT DRESSED IN GOWN AND ATTACHED TO MONITOR. 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
--- NOTE | 2019-06-05 15:30 | NUR ---
XRAY AT BEDSIDE.
[2019-06-05 15:42] LABS: ALBUMIN 3.3 g/dL (3.4-5.0); ANION GAP 7 mmol/L (5-15); CALCIUM 8.6 mg/dL (8.5-10.1); CHLORIDE 115 mmol/L (98-107)
[2019-06-05 15:48] LABS: INTERNATIONAL NORMALIZED RATIO 1.56 (0.93-1.1); PROTHROMBIN TIME 16.6 Seconds (9.6-11.5)
[2019-06-05 16:13] LABS: BASOPHILS # (AUTO) 0.03 x10^3/uL (0-0.1); BASOPHILS % (AUTO) 1 % (0-1); EOSINOPHILS # (AUTO) 0.22 x10^3/uL (0-0.4); EOSINOPHILS % (AUTO) 6 % (1-7); LYMPHOCYTES # (AUTO) 1.08 x10^3/uL (1-3.4); LYMPHOCYTES % (AUTO) 30 % (22-44); MD NO; MEAN CORPUSCULAR HEMOGLOBIN 27.7 pg (27.0-34.8); MEAN CORPUSCULAR HGB CONC 33.4 g/dL (32.4-35.8); MEAN PLATELET VOLUME 7.9 fL (7.4-10.4); MONOCYTES # (AUTO) 0.16 x10^3/uL (0.2-0.8); MONOCYTES % (AUTO) 5 % (2-9); NEUTROPHILS # (AUTO) 2.06 x10^3/uL (1.8-6.8); NEUTROPHILS % (AUTO) 58 % (42-75); PLATELET COUNT 252 x10^3/uL (130-400); RED BLOOD COUNT 3.41 x10^6/uL (3.82-5.3)
[2019-06-05] MEDS ORDERED: SODIUM CHLORIDE 0.9% 1,000ML IVBOLUS ONE (16:30)
--- NOTE | 2019-06-05 16:56 | NUR ---
IV FLUIDS INFUSING PER ORDERS.
[2019-06-05] MEDS ORDERED: DIPHENHYDRAMINE 50 MG/ML, 1ML ONE (17:41)
--- NOTE | 2019-06-05 17:50 | NUR ---
PT MEDICATED PER ORDERS, TAKEN TO IR.
[2019-06-05] MEDS ORDERED: DIPHENHYDRAMINE 50 MG/ML, 1ML IVPush ONE (18:00)
--- NOTE | 2019-06-05 18:19 | NUR ---
PT BACK FROM IR, PER IR TECH PT WILL NEED AN US OF RUE FOR OFFICIAL CLEARANCE.
[2019-06-05] MEDS ORDERED: VISIPAQUE 270 MG/ML, 50ML BOTTLE ONE (18:24)
--- NOTE | 2019-06-05 18:32 | NUR ---
US AT BEDSIDE.
[2019-06-05 18:56] VITALS: BP 124/74
--- NOTE | 2019-06-05 19:38 | NUR ---
Patient/Caregiver given discharge instructions and they have confirmed that they understand the instructions. Patient ambulatory with steady gait.
== END 2019-06-05 19:57 | disposition home or self-care (01) ==
LOC: ED 19:45
DX: M54.2 Cervicalgia (principal); R06.02 Shortness of breath; K21.9 Gastro-esophageal reflux disease without esophagitis; Z95.0 Presence of cardiac pacemaker
CPT/HCPCS: 36415; 36598; 71045; 76000; 80048; 82040; 85025; 85610; 85730; 93005; 93971; 96361; 96374; 99285; J1200; J7030; Q9966

== ENCOUNTER 2019-07-08 21:02 | Emergency (ER) | payer BC, MEDICAID ==
[~2019-07-08] VITALS: Ht 170.2 cm; Wt 110.0 kg
--- NOTE | 2019-07-08 21:24 | NUR ---
Pt reports her symptoms starting with a sore throat yesterday that has since resolved. Pt then reports a cough since this morning that has been non-productive as well as a fever and generalized headache. Pt also reports increased SOB with activity.
[2019-07-08 22:50] LABS: BASOPHILS # (AUTO) 0.05 x10^3/uL (0-0.1); BASOPHILS % (AUTO) 1 % (0-1); EOSINOPHILS # (AUTO) 0.41 x10^3/uL (0-0.4); EOSINOPHILS % (AUTO) 5 % (1-7); LYMPHOCYTES # (AUTO) 2.35 x10^3/uL (1-3.4); LYMPHOCYTES % (AUTO) 27 % (22-44); MD NO; MEAN CORPUSCULAR HEMOGLOBIN 24.4 pg (27.0-34.8); MEAN CORPUSCULAR HGB CONC 32.7 g/dL (32.4-35.8); MEAN CORPUSCULAR VOLUME 74.6 fL (80-100); MEAN PLATELET VOLUME 8.2 fL (7.4-10.4); MONOCYTES # (AUTO) 0.61 x10^3/uL (0.2-0.8); MONOCYTES % (AUTO) 7 % (2-9); NEUTROPHILS # (AUTO) 5.29 x10^3/uL (1.8-6.8); NEUTROPHILS % (AUTO) 61 % (42-75); PLATELET COUNT 206 x10^3/uL (130-400); RED BLOOD COUNT 3.41 x10^6/uL (3.82-5.3); RED CELL DISTRIBUTION WIDTH 16.7 % (9.6-15.2)
[2019-07-08 23:04] LABS: ALANINE AMINOTRANSFERASE 57 U/L (12-78); ALBUMIN 3.1 g/dL (3.4-5.0); ANION GAP 8 mmol/L (5-15); CALCIUM 8.3 mg/dL (8.5-10.1); CHLORIDE 110 mmol/L (98-107); CREATININE 0.95 mg/dL (0.55-1.02)
[2019-07-08 23:08] LABS: ALKALINE PHOSPHATASE 299 U/L (45-117); BILIRUBIN,TOTAL 0.6 mg/dL (0.2-1.0); TOTAL PROTEIN 6.8 g/dL (6.4-8.2); TROPONIN I < 0.015 ng/mL (0.000-0.045)
[2019-07-08 23:16] LABS: RAPID INFLUENZA A Negative (Negative); RAPID INFLUENZA B Negative (Negative)
[2019-07-09 00:02] VITALS: BP 119/70
== END 2019-07-09 00:04 | disposition home or self-care (01) ==
LOC: ED 23:30
DX: R05 Cough (principal); R51 Headache; R07.89 Other chest pain; K21.9 Gastro-esophageal reflux disease without esophagitis; Z86.718 Personal history of other venous thrombosis and embolism
CPT/HCPCS: 36415; 71045; 80053; 84484; 85025; 87400; 99284

== ENCOUNTER 2019-08-02 23:04 | Emergency (ER) | payer BC, MEDICAID ==
[~2019-08-02] VITALS: Ht 170.2 cm; Wt 113.2 kg
--- NOTE | 2019-08-02 23:28 | NUR ---
PT REPORTS EARLIER TONIGHT SHE ATTEMPTED TO CONNECT TPN TO PICC LINE ON LEFT CHEST. REPORTED THAT IT WOULDNT FLUSH AND THAT BLOOD BACKFLOWED DOWN LINE. PT HAS HX OF DVT IN BILAT ARMS, PE IN LEFT LUNG. PT REPORTS PAIN RADIATING FROM CENTER OF CHEST TO UPPER BACK. REPORTS SIMILAR PAIN WITH PE. PT CONNECTED TO ALL MONITORING, CALL LIGHT WITHIN REACH, ALL SAFETY MEASURES IN PLACE. ERP IN ROOM TO EVAL PT AT THIS TIME.
--- NOTE | 2019-08-02 23:29 | NUR ---
REPORT GIVEN TO ERASTO JOSUE.
--- NOTE | 2019-08-02 23:29 | NUR ---
VERIFIED ALLERGY TO CONTRAST PT STS SHE IS ABLE TO HAVE IT IF SHE GETS BENADRYL. ERP AWARE.
[2019-08-02] MEDS ORDERED: ONDANSETRON 2MG/ML, 2ML IVPush ONE (23:30)
[2019-08-02] MEDS ORDERED: SODIUM CHLORIDE FLUSH 10ML SYR IVF ONE (23:30)
[2019-08-02] MEDS ORDERED: MORPHINE SULFATE 4 MG/ML, 1ML IVPush PRN (23:30)
[2019-08-02] MEDS ORDERED: LORazepam 2 MG/ML, 1ML IVPush ONE (23:30)
[2019-08-02] MEDS ORDERED: DIPHENHYDRAMINE 50 MG/ML, 1ML IVPush ONE (23:30)
[2019-08-02] MEDS ORDERED: ONDANSETRON 2MG/ML, 2ML ONE (23:35)
[2019-08-02] MEDS ORDERED: DIPHENHYDRAMINE 50 MG/ML, 1ML ONE (23:35)
[2019-08-02] MEDS ORDERED: MORPHINE SULFATE 4 MG/ML, 1ML ONE (23:35)
[2019-08-02] MEDS ORDERED: LORazepam 2 MG/ML, 1ML ONE (23:35)
[2019-08-02 23:44] LABS: BASOPHILS # (AUTO) 0.14 x10^3/uL (0-0.1); BASOPHILS % (AUTO) 2 % (0-1); EOSINOPHILS # (AUTO) 0.24 x10^3/uL (0-0.4); EOSINOPHILS % (AUTO) 4 % (1-7); LYMPHOCYTES # (AUTO) 1.56 x10^3/uL (1-3.4); LYMPHOCYTES % (AUTO) 25 % (22-44); MD NO; MEAN CORPUSCULAR HEMOGLOBIN 22.8 pg (27.0-34.8); MEAN CORPUSCULAR HGB CONC 32.2 g/dL (32.4-35.8); MEAN CORPUSCULAR VOLUME 70.9 fL (80-100); MEAN PLATELET VOLUME 7.8 fL (7.4-10.4); MONOCYTES # (AUTO) 0.32 x10^3/uL (0.2-0.8); MONOCYTES % (AUTO) 5 % (2-9); NEUTROPHILS # (AUTO) 4.05 x10^3/uL (1.8-6.8); NEUTROPHILS % (AUTO) 64 % (42-75); PLATELET COUNT 248 x10^3/uL (130-400); RED BLOOD COUNT 3.63 x10^6/uL (3.82-5.3); RED CELL DISTRIBUTION WIDTH 17.5 % (9.6-15.2)
[2019-08-02 23:55] LABS: ALANINE AMINOTRANSFERASE 46 U/L (12-78); ALBUMIN 3.1 g/dL (3.4-5.0); ANION GAP 7 mmol/L (5-15); CALCIUM 8.5 mg/dL (8.5-10.1); CHLORIDE 109 mmol/L (98-107); CREATININE 0.87 mg/dL (0.55-1.02)
[2019-08-02 23:59] LABS: ALKALINE PHOSPHATASE 261 U/L (45-117); BILIRUBIN,TOTAL 0.5 mg/dL (0.2-1.0); TOTAL PROTEIN 7.2 g/dL (6.4-8.2); TROPONIN I < 0.015 ng/mL (0.000-0.045)
[2019-08-03 00:23] VITALS: BP 126/75
--- NOTE | 2019-08-03 00:29 | NUR ---
PIV STARTED WITH US AND PT MEDICATED PER MAR
--- NOTE | 2019-08-03 00:30 | NUR ---
CT CALLED, PT READY FOR CT AT THIS TIME
[2019-08-03] MEDS ORDERED: OMNIPAQUE 350 MG/ML, 100ML BOTTLE ONE (00:46)
--- NOTE | 2019-08-03 01:20 | NUR ---
ALL RESULTS BACK AT THIS TIME CHART UP FOR RECHECK
--- NOTE | 2019-08-03 02:26 | NUR ---
Patient/Caregiver given discharge instructions and they have confirmed that they understand the instructions. Patient ambulatory with steady gait.
== END 2019-08-03 02:27 | disposition home or self-care (01) ==
LOC: ED 23:36
DX: R07.2 Precordial pain (principal); R06.02 Shortness of breath; K21.9 Gastro-esophageal reflux disease without esophagitis; Z90.89 Acquired absence of other organs; Z90.49 Acquired absence of other specified parts of digestive tract; Z86.718 Personal history of other venous thrombosis and embolism
CPT/HCPCS: 36415; 71275; 80053; 84484; 85025; 93005; 96374; 96375; 99285; J1200; J2060; J2270; J2405; Q9967; 99284

== ENCOUNTER 2019-08-11 10:27 | Emergency (ER) | payer BC, MEDICAID ==
[~2019-08-11] VITALS: Ht 170.2 cm; Wt 106.0 kg
[2019-08-11] MEDS ORDERED: IRON PO (11:05)
--- NOTE | 2019-08-11 11:05 | NUR ---
Pt ambulated to room, smooth and steady gait, RN stand by assist. pt P/W/D, on monitor, NAD, RESP WNL, ABC intact, WCTM. Humble GALICIA at for eval and discussing POC.
[2019-08-11] MEDS ORDERED: ACETAMINOPHEN 500 MG TABLET ONE (11:08)
--- NOTE | 2019-08-11 11:24 | NUR ---
pt medicated per MAR, see MAR for interventions, pt resting in kandis, lab at drawing blood cultures, NAD, VSS, P/W/D, call light within reach, WCTM.
[2019-08-11] MEDS ORDERED: ACETAMINOPHEN 500 MG TABLET PO ONE (11:30)
[2019-08-11 11:40] LABS: BASOPHILS # (AUTO) 0.02 x10^3/uL (0-0.1); BASOPHILS % (AUTO) 0 % (0-1); EOSINOPHILS # (AUTO) 0.29 x10^3/uL (0-0.4); EOSINOPHILS % (AUTO) 2 % (1-7); LYMPHOCYTES # (AUTO) 1.04 x10^3/uL (1-3.4); LYMPHOCYTES % (AUTO) 7 % (22-44); MD NO; MEAN CORPUSCULAR HEMOGLOBIN 22.5 pg (27.0-34.8); MEAN CORPUSCULAR HGB CONC 31.9 g/dL (32.4-35.8); MEAN CORPUSCULAR VOLUME 70.5 fL (80-100); MEAN PLATELET VOLUME 9.1 fL (7.4-10.4); MONOCYTES % (AUTO) 3 % (2-9); NEUTROPHILS # (AUTO) 12.86 x10^3/uL (1.8-6.8); NEUTROPHILS % (AUTO) 88 % (42-75); PLATELET COUNT 211 x10^3/uL (130-400); RED BLOOD COUNT 4.09 x10^6/uL (3.82-5.3); RED CELL DISTRIBUTION WIDTH 17.9 % (9.6-15.2)
[2019-08-11 11:50] LABS: ALANINE AMINOTRANSFERASE 61 U/L (12-78); ALBUMIN 3.4 g/dL (3.4-5.0); ANION GAP 6 mmol/L (5-15); CALCIUM 8.7 mg/dL (8.5-10.1); CHLORIDE 108 mmol/L (98-107); CREATININE 0.94 mg/dL (0.55-1.02)
[2019-08-11 11:55] LABS: ALKALINE PHOSPHATASE 247 U/L (45-117); BILIRUBIN,TOTAL 0.9 mg/dL (0.2-1.0); TOTAL PROTEIN 7.5 g/dL (6.4-8.2)
--- NOTE | 2019-08-11 12:19 | NUR ---
pt resting in gurney, on monitor, NAD, RESP intact, P/W/D, MAEx4, call light in lap, waiting on recheck. WCTM
[2019-08-11] MEDS ORDERED: ONDANSETRON 2MG/ML, 2ML ONE (12:24)
[2019-08-11] MEDS ORDERED: MORPHINE SULFATE 4 MG/ML, 1ML ONE ×2 (12:24→12:57)
--- NOTE | 2019-08-11 12:26 | NUR ---
new temp 99.7, notified. Pt resting in INOCENCIO marquis. Addendum: 08/11/19 at 1236 by CARLYN PT PAIN TREATED PER JUN, SEE MAR FOR INTERVENTIONS. INOCENCIO.
[2019-08-11] MEDS: MORPHINE SULFATE 4 MG/ML, 1ML IVPush PRN ×2 (12:27→13:00)
[2019-08-11] MEDS ORDERED: ONDANSETRON 2MG/ML, 2ML IVPush ONE (12:30)
--- NOTE | 2019-08-11 12:50 | NUR ---
pt states pain is slightly decreased now. states it is a "8/10 now". Pt denies additional needs, laying on gurney talking on phone, VSS, P/W/D, NAD, WCTM. waiting for dispo.
[2019-08-11 13:48] VITALS: BP 105/54
--- NOTE | 2019-08-11 13:49 | NUR ---
Patient given discharge instructions and they have confirmed that they understand the instructions. Patient ambulatory with steady gait. Denies additional questions at this time.
== END 2019-08-11 13:55 | disposition home or self-care (01) ==
LOC: ED 11:11
DX: R50.9 Fever, unspecified (principal); Z20.828 Contact with and (suspected) exposure to other viral communicable diseases; R05 Cough; D63.8 Anemia in other chronic diseases classified elsewhere
CPT/HCPCS: 36415; 71045; 80053; 83605; 83880; 84145; 85025; 87040; 93005; 96374; 96375; 96376; 99285; J2270; J2405; U0001

== ENCOUNTER 2019-08-13 19:38 | Emergency (ER) | payer BC, MEDICAID ==
[~2019-08-13] VITALS: Ht 170.2 cm; Wt 108.8 kg
[~2019-08-13 19:38] MED LIST changes: +IRON PO
--- NOTE | 2019-08-13 19:58 | NUR ---
Pt here for low grade fever, pt reports she had negative test for COVID 19. Pt reports that she is very fatigued and little task at home make her very tired. Pt reports also her illeostomy is acting up and not producing as much stools as it normally does.
--- NOTE | 2019-08-13 20:29 | NUR ---
report from alysia assumed care of ptlong at this time
[2019-08-13] MEDS ORDERED: DIPHENHYDRAMINE 50 MG/ML, 1ML IVPush ONE (21:00)
--- NOTE | 2019-08-13 21:32 | NUR ---
TASK RN: 1 SET OF BLOOD CULTURES DRAWN FROM PICC LINE PER ORDER. CLAVE CHANGED USING STERILE TECHNIQUE AFTER BLOOD DRAW. LAB AT BS FOR 2ND SET OF CULTURS PERIPHERALLY AND OTHER LABS. PT. ON ALL MONITORS, DENIES OTHER NEEDS AT THIS TIME. ALL SAFETY MEASURES OBSERVED.
[2019-08-13] MEDS ORDERED: DIPHENHYDRAMINE 50 MG/ML, 1ML ONE ×2 (21:33)
--- NOTE | 2019-08-13 21:42 | NUR ---
no s/s fo resp distress at this time
[2019-08-13 21:58] LABS: BASOPHILS # (AUTO) 0.02 x10^3/uL (0-0.1); BASOPHILS % (AUTO) 0 % (0-1); EOSINOPHILS # (AUTO) 0.28 x10^3/uL (0-0.4); EOSINOPHILS % (AUTO) 3 % (1-7); LYMPHOCYTES # (AUTO) 2.03 x10^3/uL (1-3.4); LYMPHOCYTES % (AUTO) 21 % (22-44); MD NO; MEAN CORPUSCULAR HEMOGLOBIN 22.8 pg (27.0-34.8); MEAN CORPUSCULAR HGB CONC 31.5 g/dL (32.4-35.8); MEAN CORPUSCULAR VOLUME 72.4 fL (80-100); MEAN PLATELET VOLUME 9.2 fL (7.4-10.4); MONOCYTES # (AUTO) 0.24 x10^3/uL (0.2-0.8); MONOCYTES % (AUTO) 3 % (2-9); NEUTROPHILS # (AUTO) 7.05 x10^3/uL (1.8-6.8); NEUTROPHILS % (AUTO) 73 % (42-75); PLATELET COUNT 253 x10^3/uL (130-400); RED BLOOD COUNT 4.34 x10^6/uL (3.82-5.3)
[2019-08-13 22:04] LABS: ALANINE AMINOTRANSFERASE 49 U/L (12-78); ALBUMIN 3.5 g/dL (3.4-5.0); ANION GAP 11 mmol/L (5-15); CALCIUM 9.1 mg/dL (8.5-10.1); CHLORIDE 109 mmol/L (98-107); CREATININE 1.01 mg/dL (0.55-1.02)
[2019-08-13] MEDS ORDERED: OMNIPAQUE 350 MG/ML, 100ML BOTTLE ONE (22:06)
[2019-08-13 22:09] LABS: ALKALINE PHOSPHATASE 265 U/L (45-117); BILIRUBIN,TOTAL 0.6 mg/dL (0.2-1.0); TOTAL PROTEIN 8.3 g/dL (6.4-8.2); TROPONIN I < 0.015 ng/mL (0.000-0.045)
[2019-08-13] MEDS ORDERED: ONDANSETRON 2MG/ML, 2ML IVPush ONE (22:30)
[2019-08-13] MEDS ORDERED: MORPHINE SULFATE 4 MG/ML, 1ML IVPush PRN (22:30)
[2019-08-13] MEDS ORDERED: MORPHINE SULFATE 4 MG/ML, 1ML ONE (22:43)
[2019-08-13] MEDS ORDERED: ONDANSETRON 2MG/ML, 2ML ONE (22:43)
--- NOTE | 2019-08-13 22:45 | NUR ---
MEDICATED FOR PAIN AT THIS TIME
[2019-08-13 22:48] VITALS: BP 115/41
--- NOTE | 2019-08-13 23:23 | NUR ---
Patient/Caregiver given discharge instructions and they have confirmed that they understand the instructions. Patient ambulatory with steady gait.
== END 2019-08-13 23:24 | disposition home or self-care (01) ==
LOC: ED 20:43
DX: R10.84 Generalized abdominal pain (principal); R10.32 Left lower quadrant pain; R11.2 Nausea with vomiting, unspecified; R50.9 Fever, unspecified; Z86.718 Personal history of other venous thrombosis and embolism; K21.9 Gastro-esophageal reflux disease without esophagitis; Z90.49 Acquired absence of other specified parts of digestive tract; Z90.89 Acquired absence of other organs; Z88.2 Allergy status to sulfonamides; Z88.1 Allergy status to other antibiotic agents; Z88.8 Allergy status to other drugs, medicaments and biological substances
CPT/HCPCS: 36415; 71045; 74177; 80053; 84484; 85025; 87040; 93005; 96374; 96375; 99285; J1200; J2270; J2405; Q9967

== ENCOUNTER 2019-10-04 20:27 | Emergency (ER) | payer BC, MEDICAID ==
[~2019-10-04] VITALS: Ht 170.2 cm; Wt 106.5 kg
[2019-10-04 20:30] VITALS: BP 134/79
--- NOTE | 2019-10-04 21:42 | NUR ---
TASK RN: PT IN GOWN IN [facility] WITH CALL LIGHT WITHIN REACH. LAB AT BS FOR BC X 2 AND LABS. PT DENIES NEED FOR WARM BLANKET AT THIS TIME. PT EDUCATED ON ER PROCESS AND POC AND VERBALIZES UNDERSTANDING.
[2019-10-04 22:04] LABS: BASOPHILS # (AUTO) 0.02 x10^3/uL (0-0.1); BASOPHILS % (AUTO) 0 % (0-1); EOSINOPHILS # (AUTO) 0.33 x10^3/uL (0-0.4); EOSINOPHILS % (AUTO) 4 % (1-7); LYMPHOCYTES # (AUTO) 2.33 x10^3/uL (1-3.4); LYMPHOCYTES % (AUTO) 31 % (22-44); MD NO; MEAN CORPUSCULAR HEMOGLOBIN 21.9 pg (27.0-34.8); MEAN CORPUSCULAR HGB CONC 31.5 g/dL (32.4-35.8); MEAN CORPUSCULAR VOLUME 69.3 fL (80-100); MEAN PLATELET VOLUME 8.1 fL (7.4-10.4); MONOCYTES # (AUTO) 0.37 x10^3/uL (0.2-0.8); MONOCYTES % (AUTO) 5 % (2-9); NEUTROPHILS # (AUTO) 4.56 x10^3/uL (1.8-6.8); NEUTROPHILS % (AUTO) 60 % (42-75); PLATELET COUNT 192 x10^3/uL (130-400); RED BLOOD COUNT 4.03 x10^6/uL (3.82-5.3); RED CELL DISTRIBUTION WIDTH 20.6 % (9.6-15.2)
[2019-10-04 22:15] LABS: ALANINE AMINOTRANSFERASE 44 U/L (12-78); ALBUMIN 3.4 g/dL (3.4-5.0); ANION GAP 6 mmol/L (5-15); CALCIUM 8.5 mg/dL (8.5-10.1); CHLORIDE 109 mmol/L (98-107); CREATININE 1.06 mg/dL (0.55-1.02)
[2019-10-04 22:20] LABS: ALKALINE PHOSPHATASE 272 U/L (45-117); BILIRUBIN,TOTAL 0.5 mg/dL (0.2-1.0); TOTAL PROTEIN 7.7 g/dL (6.4-8.2); TROPONIN I < 0.015 ng/mL (0.000-0.045)
== END 2019-10-04 23:08 | disposition home or self-care (01) ==
LOC: ED 22:30
DX: R05 Cough (principal); R06.02 Shortness of breath; R07.9 Chest pain, unspecified; Z90.89 Acquired absence of other organs; K21.9 Gastro-esophageal reflux disease without esophagitis; Z86.718 Personal history of other venous thrombosis and embolism; Z90.49 Acquired absence of other specified parts of digestive tract; R94.31 Abnormal electrocardiogram [ECG] [EKG]
CPT/HCPCS: 36415; 71045; 80053; 83880; 84484; 85025; 87040; 93005; 99285

== ENCOUNTER 2019-10-13 15:04 | Emergency (ER) | payer BC, MEDICAID ==
[~2019-10-13] VITALS: Ht 170.2 cm; Wt 102.5 kg
[2019-10-13] MEDS ORDERED: SODIUM CHLORIDE 0.9% 1,000 ML IV ONE (15:36)
[2019-10-13] MEDS ORDERED: MORPHINE SULFATE 4 MG/ML, 1ML IVPush PRN (16:00)
[2019-10-13] MEDS ORDERED: ONDANSETRON 2MG/ML, 2ML IVPush ONE ×2 (16:00→19:00)
[2019-10-13] MEDS ORDERED: ONDANSETRON 2MG/ML, 2ML ONE ×2 (16:13→18:46)
[2019-10-13] MEDS ORDERED: MORPHINE SULFATE 4 MG/ML, 1ML ONE ×2 (16:14→18:47)
--- NOTE | 2019-10-13 16:16 | NUR ---
OK PER PT AND ERMD LAW OK TO USE PICC LINE
[2019-10-13 16:17] LABS: BASOPHILS # (AUTO) 0.02 x10^3/uL (0-0.1); BASOPHILS % (AUTO) 0 % (0-1); EOSINOPHILS % (AUTO) 5 % (1-7); LYMPHOCYTES # (AUTO) 2.29 x10^3/uL (1-3.4); LYMPHOCYTES % (AUTO) 34 % (22-44); MD NO; MEAN CORPUSCULAR HEMOGLOBIN 22.2 pg (27.0-34.8); MEAN CORPUSCULAR HGB CONC 32.1 g/dL (32.4-35.8); MEAN CORPUSCULAR VOLUME 69.2 fL (80-100); MEAN PLATELET VOLUME 8.4 fL (7.4-10.4); MONOCYTES # (AUTO) 0.41 x10^3/uL (0.2-0.8); MONOCYTES % (AUTO) 6 % (2-9); NEUTROPHILS # (AUTO) 3.67 x10^3/uL (1.8-6.8); NEUTROPHILS % (AUTO) 55 % (42-75); PLATELET COUNT 333 x10^3/uL (130-400); RED BLOOD COUNT 4.39 x10^6/uL (3.82-5.3); RED CELL DISTRIBUTION WIDTH 20.3 % (9.6-15.2)
[2019-10-13 16:22] LABS: ALANINE AMINOTRANSFERASE 65 U/L (12-78); ALBUMIN 3.4 g/dL (3.4-5.0); ANION GAP 6 mmol/L (5-15); CHLORIDE 108 mmol/L (98-107); CREATININE 1.22 mg/dL (0.55-1.02)
[2019-10-13 16:27] LABS: ALKALINE PHOSPHATASE 231 U/L (45-117); BILIRUBIN,TOTAL 0.9 mg/dL (0.2-1.0); TOTAL PROTEIN 7.6 g/dL (6.4-8.2); TROPONIN I < 0.015 ng/mL (0.000-0.045)
[2019-10-13 16:44] LABS: D-DIMER 0.24 ug/mlFEU (0.00-0.52); INTERNATIONAL NORMALIZED RATIO 0.97 (0.93-1.1); PROTHROMBIN TIME 10.3 Seconds (9.6-11.5)
[2019-10-13] MEDS ORDERED: DIPHENHYDRAMINE 50 MG/ML, 1ML ONE (17:22)
--- NOTE | 2019-10-13 17:24 | NUR ---
ERMD LAW AT BEDSIDE TO DISCUSS POC
[2019-10-13] MEDS ORDERED: DIPHENHYDRAMINE 50 MG/ML, 1ML IVPush ONE (17:30)
--- NOTE | 2019-10-13 17:59 | NUR ---
STEADY AMBULATION TO BATHROOM
[2019-10-13 18:02] LABS: MICROSCOPIC NOT IND
[2019-10-13 18:14] VITALS: BP 111/72
--- NOTE | 2019-10-13 18:32 | NUR ---
PT BACK FROM IMAGING, RESTING IN BED. CALL LIGHT IN REACH
[2019-10-13] MEDS ORDERED: OMNIPAQUE 350 MG/ML, 100ML BOTTLE ONE (18:45)
--- NOTE | 2019-10-13 18:46 | NUR ---
REPORT TO TOSIN
== END 2019-10-13 19:28 | disposition home or self-care (01) ==
LOC: ED 16:11
DX: R55 Syncope and collapse (principal); R10.84 Generalized abdominal pain; R10.10 Upper abdominal pain, unspecified; R42 Dizziness and giddiness; R53.1 Weakness; R94.31 Abnormal electrocardiogram [ECG] [EKG]; R06.02 Shortness of breath; K21.9 Gastro-esophageal reflux disease without esophagitis; Z86.718 Personal history of other venous thrombosis and embolism
CPT/HCPCS: 36415; 74022; 74177; 80053; 81003; 83690; 84484; 85025; 85379; 85610; 85730; 93005; 96361; 96374; 96375; 96376; 99285; J1200; J2270; J2405; J7030; Q9967

== ENCOUNTER 2019-11-10 20:53 | Emergency (ER) | payer BC, MEDICAID ==
[~2019-11-10] VITALS: Ht 170.2 cm; Wt 102.0 kg
[2019-11-10 20:55] VITALS: BP 113/75
[2019-11-10] MEDS ORDERED: HYDROcodone/APAP 5/325 TABLET PO ONE (21:30)
[2019-11-10 21:35] LABS: BASOPHILS % (AUTO) 0 % (0-1); EOSINOPHILS # (AUTO) 0.16 x10^3/uL (0-0.4); EOSINOPHILS % (AUTO) 2 % (1-7); LYMPHOCYTES % (AUTO) 24 % (22-44); MD NO; MEAN CORPUSCULAR HEMOGLOBIN 21.8 pg (27.0-34.8); MEAN CORPUSCULAR HGB CONC 31.7 g/dL (32.4-35.8); MEAN CORPUSCULAR VOLUME 68.7 fL (80-100); MEAN PLATELET VOLUME 7.7 fL (7.4-10.4); MONOCYTES # (AUTO) 0.24 x10^3/uL (0.2-0.8); MONOCYTES % (AUTO) 3 % (2-9); NEUTROPHILS # (AUTO) 5.51 x10^3/uL (1.8-6.8); NEUTROPHILS % (AUTO) 70 % (42-75); PLATELET COUNT 354 x10^3/uL (130-400); RED BLOOD COUNT 4.32 x10^6/uL (3.82-5.3); RED CELL DISTRIBUTION WIDTH 18.8 % (9.6-15.2)
[2019-11-10] MEDS ORDERED: HYDROcodone/APAP 5/325 TABLET ONE (21:40)
[2019-11-10 21:43] LABS: INTERNATIONAL NORMALIZED RATIO 0.94 (0.93-1.1)
[2019-11-10 21:44] LABS: ALANINE AMINOTRANSFERASE 52 U/L (12-78); ALBUMIN 3.4 g/dL (3.4-5.0); ANION GAP 7 mmol/L (5-15); CALCIUM 8.9 mg/dL (8.5-10.1); CHLORIDE 107 mmol/L (98-107)
[2019-11-10 21:48] LABS: ALKALINE PHOSPHATASE 291 U/L (45-117); BILIRUBIN,TOTAL 0.6 mg/dL (0.2-1.0); CREATININE 1.16 mg/dL (0.55-1.02); TOTAL PROTEIN 7.8 g/dL (6.4-8.2); TROPONIN I < 0.015 ng/mL (0.000-0.045)
== END 2019-11-10 22:23 | disposition home or self-care (01) ==
LOC: ED 21:38
DX: R07.2 Precordial pain (principal); R06.00 Dyspnea, unspecified; R06.02 Shortness of breath; R94.31 Abnormal electrocardiogram [ECG] [EKG]; K21.9 Gastro-esophageal reflux disease without esophagitis; Z86.73 Personal history of transient ischemic attack (TIA), and cerebral infarction without residual deficits; Z86.718 Personal history of other venous thrombosis and embolism; Z90.89 Acquired absence of other organs; Z90.49 Acquired absence of other specified parts of digestive tract
CPT/HCPCS: 36415; 71045; 80053; 83880; 84484; 85025; 85610; 85730; 93005; 99285

== ENCOUNTER 2019-11-18 17:15 | Emergency (ER) | payer BC, MEDICAID ==
[~2019-11-18] VITALS: Ht 170.2 cm; Wt 104.1 kg
[2019-11-18 17:17] VITALS: BP 110/87
[2019-11-18] MEDS ORDERED: ASPIRIN 81 MG TABLET CHEW PO ONE (18:00)
[2019-11-18] MEDS ORDERED: L.E.T SOLUTION TP ONE ×2 (18:16→18:30)
[2019-11-18] MEDS ORDERED: LIDOCAINE-MPF 1%, 5ML INFIL ONE (18:30)
[2019-11-18] MEDS ORDERED: DIPH,PERTUSS(ACELL),TET VAC/PF 0.5 ML IM-VACC ONE ×2 (18:30→19:23)
[2019-11-18] MEDS ORDERED: LIDOCAINE-MPF 1%, 5ML ONE (19:13)
== END 2019-11-18 20:03 | disposition home or self-care (01) ==
LOC: ED 19:59
DX: S61.411A Laceration without foreign body of right hand, initial encounter (principal); R94.31 Abnormal electrocardiogram [ECG] [EKG]; Z86.718 Personal history of other venous thrombosis and embolism; W26.9XXA Contact with unspecified sharp object(s), initial encounter; Y93.89 Activity, other specified; Y92.009 Unspecified place in unspecified non-institutional (private) residence as the place of occurrence of the external cause; Y99.8 Other external cause status
CPT/HCPCS: 12002; 90471; 90715; 93005; 99283

== ENCOUNTER 2020-01-09 14:46 | Emergency (ER) | payer BC, MEDICAID ==
[~2020-01-09] VITALS: Ht 170.2 cm; Wt 107.3 kg
[~2020-01-09 14:46] MED LIST changes: +[UNRECOGNIZED DRUG - CODE] TP; -[UNRECOGNIZED DRUG - CODE] TP
--- NOTE | 2020-01-09 15:23 | NUR ---
Pt here for abd pain with new onset of SOB, pt reports possible low hgb. Pt reports that her previous ostomy site is praveena bleeding that was not before after her lovenox shot. Pt reports she does not feel well and is having some severe pain in her abdomen as well. It is noted that the patients is breathing more rapidly and she feels more labored as well. Pt is oxygenating well per spo2 reading. Pt is on all monitors for vitals monitoring. Pt has a Gershong cath in place for TPN. Pt in room, fall measures in place and call light in reach.
[2020-01-09] MEDS ORDERED: SODIUM CHLORIDE FLUSH 10ML SYR IVF ONE (15:30)
[2020-01-09] MEDS ORDERED: ACETAMINOPHEN 325 MG TABLET PO ONE (15:30)
[2020-01-09 15:55] LABS: MEAN CORPUSCULAR HEMOGLOBIN 20.3 pg (27.0-34.8); MEAN CORPUSCULAR HGB CONC 30.5 g/dL (32.4-35.8); MEAN CORPUSCULAR VOLUME 66.5 fL (80-100); MEAN PLATELET VOLUME 8.3 fL (7.4-10.4); PLATELET COUNT 242 x10^3/uL (130-400); RED BLOOD COUNT 3.18 x10^6/uL (3.82-5.3); RED CELL DISTRIBUTION WIDTH 17.4 % (9.6-15.2)
[2020-01-09 15:59] LABS: INTERNATIONAL NORMALIZED RATIO 1.27 (0.93-1.1); PROTHROMBIN TIME 13.1 Seconds (9.6-11.5)
[2020-01-09 16:02] LABS: ALANINE AMINOTRANSFERASE 31 U/L (12-78); ALBUMIN 2.8 g/dL (3.4-5.0); ANION GAP 6 mmol/L (5-15); BASOPHILS # (AUTO) 0.05 x10^3/uL (0-0.1); BASOPHILS % (AUTO) 1 % (0-1); CALCIUM 8.3 mg/dL (8.5-10.1); CHLORIDE 109 mmol/L (98-107); CREATININE 0.94 mg/dL (0.55-1.02); EOSINOPHILS # (AUTO) 0.15 x10^3/uL (0-0.4); EOSINOPHILS % (AUTO) 2 % (1-7); LYMPHOCYTES % (AUTO) 24 % (22-44); MD MORPH REVIEW ONLY; MONOCYTES # (AUTO) 0.32 x10^3/uL (0.2-0.8); MONOCYTES % (AUTO) 5 % (2-9); NEUTROPHILS # (AUTO) 4.49 x10^3/uL (1.8-6.8); NEUTROPHILS % (AUTO) 68 % (42-75)
[2020-01-09 16:04] LABS: ALKALINE PHOSPHATASE 229 U/L (45-117); BILIRUBIN,TOTAL 0.4 mg/dL (0.2-1.0)
[2020-01-09] MEDS ORDERED: ACETAMINOPHEN 500 MG TABLET ONE (16:06)
[2020-01-09] MEDS ORDERED: ONDANSETRON ODT 4 MG ONE (16:06)
--- NOTE | 2020-01-09 16:18 | NUR ---
pT MEDICATED FOR FEVER AND PAIN, PT PAIN LEVEL REPORTED TO PROVIDED AND LOW H/H
[2020-01-09 16:19] LABS: ANISOCYTOSIS 1+; MICROCYTOSIS 1+; OVALOCYTES 1+; POLYCHROMASIA 1+
[2020-01-09 16:20] LABS: <PLATELET ESTIMATE> ADEQUATE; <PLT MORPHOLOGY> NORMAL PLT MORPH
[2020-01-09] MEDS ORDERED: ACETAMINOPHEN 500 MG TABLET PO ONE (16:30)
[2020-01-09] MEDS ORDERED: ONDANSETRON ODT 4 MG PO ONE (16:30)
[2020-01-09] MEDS ORDERED: PROCHLORPERAZINE 5 MG/ML, 2ML IVPush ONE (17:00)
[2020-01-09] MEDS ORDERED: PROCHLORPERAZINE 5 MG/ML, 2ML ONE (17:11)
[2020-01-09 17:25] VITALS: BP 160/86
--- NOTE | 2020-01-09 17:26 | NUR ---
pT REQUESTING iv BENADRYL, PT INFORMED AT THIS TIME MD WOULD NOT LIKE TO MAKE HER SLEEPY WITH HER SOB.
[2020-01-09] MEDS ORDERED: DIPHENHYDRAMINE 50 MG/ML, 1ML ONE (17:31)
[2020-01-09 17:40] VITALS: BP 166/85
[2020-01-09 17:55] VITALS: BP 164/82
[2020-01-09] MEDS ORDERED: DIPHENHYDRAMINE 50 MG/ML, 1ML IVPush ONE (18:00)
--- NOTE | 2020-01-09 18:36 | NUR ---
Break RN: ELENA collected and walked to lab. Patient back on [facility], all monitoring in place. VSS, NADN, call light in reach. Infusion complete.
[2020-01-09 18:38] VITALS: BP 101/60
[2020-01-09 18:50] LABS: MICROSCOPIC NOT IND
--- NOTE | 2020-01-09 18:53 | NUR ---
Break RN: Franky HAGEN notified of vital signs at 1840 in spreadsheet. Temp back up to 99.8, BP 101/60. Previous BP's 160's/80-90's. Report to ERASTO Colin
--- NOTE | 2020-01-09 19:06 | NUR ---
Taryn wolff in [facility] - 01/09/20 at 1907 by BASILIA Arianne to Dixie MAURER
--- NOTE | 2020-01-09 19:08 | NUR ---
POST blood transfusion documentation by this RN
--- NOTE | 2020-01-09 19:08 | NUR ---
Report to Dixie MAURER
[2020-01-09 19:30] VITALS: BP 160/86
== END 2020-01-09 19:34 | disposition home or self-care (01) ==
LOC: ED 17:04
DX: D50.9 Iron deficiency anemia, unspecified (principal); R50.9 Fever, unspecified; R06.02 Shortness of breath; R10.9 Unspecified abdominal pain; R53.1 Weakness; I10 Essential (primary) hypertension; Z90.89 Acquired absence of other organs; Z90.49 Acquired absence of other specified parts of digestive tract
CPT/HCPCS: 36415; 36430; 71045; 80053; 81003; 85025; 85610; 86850; 86900; 86923; 87040; 93005; 96374; 96375; 99285; J0780; J1200; P9016; Q0162